=== PATIENT | female | born 1955 | race Caucasian/White ===

== ENCOUNTER 2020-04-27 14:43 | Emergency (ER) | payer OTHER, SELFPAY ==
[2020-04-27 14:51] VITALS: BP 137/69; PULSE 112; RESP 16; TEMP 36.3; O2SAT 97
--- NOTE | 2020-04-27 14:54 | DI.RAD.S_ITS ---
PROCEDURE: XR KNEE LT 3V INDICATIONS: left knee pain, can't bear weight TECHNIQUE: 3 views of the knee were acquired. COMPARISON: None. FINDINGS: Bones: No fractures or dislocations. No suspicious bony lesions. Soft tissues: There is a small joint effusion. No suspicious soft tissue calcifications. IMPRESSION: 1. No acute bony abnormality. 2. Small joint effusion. Dictated by: Rodrigo Taylor M.D. on 04/27/2020 at 15:27 Approved by: Rodrigo Taylor M.D. on 04/27/2020 at 15:28
[2020-04-27 18:14] VITALS: BP 136/80; PULSE 102; RESP 18; O2SAT 98
--- NOTE | 2020-04-27 19:22 | ED.LOWEXIN ---
HPI - Extremity Injury (Lower) <VERONICA Vyas - Last Filed: 04/27/20 20:18> General Chief Complaint: Extremity Injury, Lower Stated Complaint: cant walk on left leg/ left shoulder hurts Time Seen by Provider: 04/27/20 17:16 Source: patient Mode of arrival: Wheelchair Limitations: no limitations History of Present Illness HPI Narrative: This is a 64 year female, former smoker, who has past medical history right knee injury and 3 surgeries presents to ED with chief complain of left medial knee pain for last 6 days and left posterior localized pain for last 4 days. Patient denies trauma or falls. Patient states after the right knee replacement in 2018 she has been doing well up until several days ago. Patient reports pain increases with weight-bearing. She and her spouse moved from [facility] to [place] in December and is currently lives in travel RV. Patient reports pain is located in medial knee with swelling with weight-bearing. Then she also has lateral knee pain when she flexes affected leg. Patient reports intact sensation distally and is able to move her toes. Patient reports nontraumatic left posterior shoulder pain as well. Patient reports limited active range of motion due to discomfort. She initially injured left shoulder 20 years ago after she landed on shoulder during football game. Patient reports intact sensation distally and mobility to her fingers. Patient has been pulling herself up and down the stairs in traveling RV which she contributes the shoulder pain. Patient denies chest pain, dyspnea, or dizziness. Patient denies nausea or vomiting, or abdominal pain. Patient takes meloxicam as needed but without much improvement. Patient has [employer] health insurance from [place] and is waiting to switch insurance to [facility] and is requesting something to help her with pain until next year that she can follow up with new primary care physician and referrals to specialty providers. Related Data Allergies Allergy/AdvReac Type Severity Reaction Status Date / Time Sulfa (Sulfonamide Allergy Severe Vomiting Verified 04/27/20 14:53 Antibiotics) Review of Systems <VERONICA Vyas - Last Filed: 04/27/20 20:18> Review of Systems Narrative: General: Denies fever, chills, fatigue, malaise, sweats. HEENT: Denies sinus pain, ear pain, sore throat, difficulty swallowing, dizziness. Respiratory: Denies dyspnea, cough, wheezing, hemoptysis, sputum. Cardiovascular: Denies chest pain, palpitations, orthopnea, edema. Gastrointestinal: Denies nausea, vomiting, abdominal pain, diarrhea, constipation, melena. : Denies dysuria, frequency, incontinence, hematuria, urinary retention. Musculoskeletal: See HPI Skin: Denies rash, skin lesions, or other. Neurologic: Denies weakness, headache, numbness, change in speech, confusion, seizures, incoordination. Psychiatric: No concerning psychosocial issues. 12-point review of systems is negative except for those stated above. Patient History <VERONICA Vyas - Last Filed: 04/27/20 20:18> Surgical History H/O knee surgery Social History Smoking Status: Former smoker Smoking Status: Former smoker Substance Use Type: does not use Exam <VERONICA Vyas - Last Filed: 04/27/20 20:18> Narrative Exam Narrative: General appearance: well developed, well nourished, in no acute distress. Head: normocephalic, atraumatic, no scalp lesions, non-tender. ENT: Hearing grossly intact. Nose without bleeding, purulent discharge, septal hematoma or deviation. Airway patent. Neck/Thyroid: neck supple, full range of motion, no visible masses or meningeal signs. No JVD, non-tender without lymphadenopathy. Skin: no suspicious rashes, lesions over visible areas. Warm and dry and appropriate color for ethnicity. Heart: no clubbing, no cyanosis, no edema. S1 and S2 normal. RRR w/o murmurs, clicks, or bruits. Lungs: Breathing even and unlabored. No stridor. No accessory muscles used. Able to speak in full sentences. Chest: normal shape and expansion. Abdomen: non-obese, non-distended. Neurologic: alert and oriented. Cognitive exam, [employer] and PNS grossly intact on informal exam. Psych: good eye contact, normal affect. Initial Vital Signs Initial Vital Signs: Vital Signs Temperature 97.3 F L 04/27/20 14:51 Pulse Rate 112 H 04/27/20 14:51 Respiratory Rate 16 04/27/20 14:51 Blood Pressure 137/69 12/18/20 14:51 Pulse Oximetry 97 04/27/20 14:51 Extrem Left upper extremity: shoulder/upper arm Details: tenderness Location: other (Posterior shoulder joint) and abnormal ROM Details: pain with active ROM and pain with passive ROM; no swelling, no crepitus, no deformity and no unsual warmth and hand Details: normal to inspection, normal capillary refill, neuromotor exam normal, neurosensory exam normal and normal ROM of fingers Left lower extremity: hip/thigh Details: no tenderness and no swelling, knee Details: tenderness Location: of the medial joint line and of the lateral joint line, swelling (medial knee), normal ROM, knee ligament exam normal and other (No erythema); no ecchymosis, no crepitus, no deformity and no unusual warmth and foot Details: normal capillary refill, normal to inspection and toes with normal ROM; no tenderness <Jody Hayes DO - Last Filed: 04/28/20 07:59> Initial Vital Signs Initial Vital Signs: Vital Signs Temperature 97.3 F L 04/27/20 14:51 Pulse Rate 112 H 04/27/20 14:51 Respiratory Rate 16 04/27/20 14:51 Blood Pressure 137/69 04/27/20 14:51 Pulse Oximetry 97 04/27/20 14:51 Scores <VERONICA Vyas - Last Filed: 04/27/20 20:18> GCS [place] coma scale eye opening: Spontaneous [place] coma scale verbal response: Orientated Cathi coma scale motor response: Obey commands [place] coma scale total score: 15 qSOFA Altered Mental Status (GCS <15): No Respiratory rate greater than/equal to 22: No Systolic blood pressure less than or equal to 100: No qSOFA Total: 0 0-1 Not High Risk 1-3 High risk Course <VERONICA Vyas - Last Filed: 04/27/20 20:18> Orders Ordered: ED Orders 04/27/20 14:54 XR knee LT 3V Stat Vital Signs Vital signs: Vital Signs - 8 hr 04/27/20 14:51 04/27/20 18:14 Temperature 97.3 F L Pulse Rate 112 H 102 H Respiratory Rate 16 18 Blood Pressure 137/69 136/80 Pulse Oximetry 97 98 <Jody Hayes DO - Last Filed: 04/28/20 07:59> Orders Ordered: ED Orders 04/27/20 14:54 XR knee LT 3V Stat Vital Signs Vital signs: Vital Signs - 8 hr 04/27/20 14:51 04/27/20 18:14 Temperature 97.3 F L Pulse Rate 112 H 102 H Respiratory Rate 16 18 Blood Pressure 137/69 136/80 Pulse Oximetry 97 98 MDM - Extremity Injury (Lower) <Prince Hoover-TristonVERONICA lechuga - Last Filed: 04/27/20 20:18> Differential Diagnosis Differential diagnosis: Likely acute internal derangement of knee and other (shoulder pain, rotator cuff tendinopathy, knee strain) Medical Records Attestation: I reviewed the patient's medical records. Imaging Data XR-Knee LT: Radiologist's Impression: [address] [address]DRuf ReportSigned Patient: Glory Block#: [id number]: 4Acct:[id number]/Sex: 64 / FDate of Service: 04/27/20Loc: EDAccession Number: [id number] Procedure: XR knee LT 3V Ordering Provider: Jody Hayes D.O. PROCEDURE: XR KNEE LT 3V INDICATIONS: left knee pain, can't bear weight TECHNIQUE: 3 views of the knee were acquired. COMPARISON: None. FINDINGS: Bones: No fractures or dislocations. No suspicious bony lesions. Soft tissues: There is a small joint effusion. No suspicious soft tissue calcifications. IMPRESSION: 1. No acute bony abnormality. 2. Small joint effusion. Dictated by: Rodrigo Taylor M.D. on 04/27/2020 at 15:27 Approved by: Rodrigo Taylor M.D. on 04/27/2020 at 15:28 [facility] Narrative Medical decision making narrative: 64-year-old female who presents to ED with nontraumatic left knee and left posterior shoulder pain. Patient reports pain increased with active and passive ROM with intact sensation and mobility to fingers. Considered cardiac etiology but patient's physical exam and history is not consistent with this. Patient does not have associated cardiac symptoms. Patient has been lifting herself up and down the RV stairs after the knee pain started that she contributes her shoulder pain. Patient reports left medial knee pain with small swelling which worsens with weight-bearing. Patient is able to flex and extend knee. Pain location to lateral knee with flexion of affected knee. Patient has intact sensation and mobility to toes. Knee x-ray test shows no acute findings but with small Joint effusion. Patient is waiting to change [employer] health insurance from [place] to [place]. Patient offered Mario wrap for support and discomfort and patient elected to use walker for weight-bearing. Shoulder pain is likely from rotator cough tendinopathy. We discussed shoulder immobilizer but patient needs to exercise and stretch to prevent frozen shoulder and patient deferred. Patient currently use meloxicam as needed without much improvement. Advised patient to either use [id number] Motrin/ibuprofen or meloxicam add Tylenol to this. Return precautions were discussed with patient and agrees with treatment plan. Patient advise need further evaluation by orthopedist and advanced imaging test if pain persists and possibly a referral to physical therapist. Discharge Plan Departure Patient Disposition: Home Clinical Impression: Acute shoulder pain Qualifiers: Laterality: left Qualified Code(s): M25.512 - Pain in left shoulder Knee pain Qualifiers: Chronicity: acute Laterality: left Qualified Code(s): M25.562 - Pain in left knee Instructions: DI for Shoulder Pain, DI for Knee Pain Activity Restrictions/Additional Instructions: You have been diagnosed with [left knee and shoulder pain. X-ray test on left knee does not show acute fractures but small effusion in the joint.]. What to do: *Take your medications as directed. You can use [id number] Tylenol and your choice of NSAIDS with food to decrease GI irritation. You can use a walker that is provided to you for weight-bearing. Use Mario wrap as needed for support in your knee. For acute shoulder pain, rest. When acute pain improves with rest and NSAIDs, start gentle stretching. You may need a referral to physical therapy for further evaluation and treatment. *Follow up with your primary care provider in 2-3 days, call for an appointment. Let them know you were seen in the ED and that we asked you to be seen in follow up. Please contact [place] if pain persists for further advanced imaging test. *Return to ED if you have any new, worsening, or concerning symptoms, such as [worsening pain, fever, redness/swelling/warmth around the joint, rash, chest pain, breathing difficulty, nausea/vomiting, unable to tolerate fluids, weakness/numbness/tingling in extremities or any acute concerns]. Referrals: [facility] [Provider Group] <Jody Hayes DO - Last Filed: 04/28/20 07:59> Cosign ED Attending Cosignature Attestation: I was immediately available in the department for consultation. Documentation has been reviewed. I agree with assessment and plan.
== END 2020-04-27 18:14 | disposition home or self-care (01) ==
PROVIDERS: Emergency Provider Nurse Practitioner Family
DX: M25.512 Pain in left shoulder (principal); M25.562 Pain in left knee
CPT/HCPCS: 73562; 99281; 99283

== ENCOUNTER 2020-05-08 02:32 | Inpatient (IN) | payer OTHER, SELFPAY ==
[2020-05-08] VITALS (25 sets, daily range): BP systolic 100–186; BP diastolic 47–81; PULSE 85–115; RESP 12–20; TEMP 35.7–36.9; O2SAT 91–100; BMI 35.6
--- NOTE | 2020-05-08 | DI.RAD.S_ITS ---
PROCEDURE: XR HIP W PEL IF DONE RT 2V INDICATIONS: ORIR RIGHT FEMUR TECHNIQUE: AP pelvis with lateral view(s) of the right hip(s). COMPARISON: [facility], , XR HIP W PEL IF DONE RT 2V, 05/08/2020, 2:45. FINDINGS: Spot fluoroscopic intraoperative images demonstrating intramedullary toñito and screw fixation of the proximal right femur. IMPRESSION: Expected intraoperative appearance. Dictated by: Ramiro Lal M.D. on 05/08/2020 at 18:48 Approved by: Ramiro Lal M.D. on 05/08/2020 at 18:48
--- NOTE | 2020-05-08 02:41 | DI.RAD.S_ITS ---
PROCEDURE: XR HIP W PEL IF DONE RT 2V INDICATIONS: Right hip pain after fall TECHNIQUE: AP pelvis with lateral view(s) of the right hip(s). COMPARISON: None. FINDINGS: Bones: Subtrochanteric/intertrochanteric fracture of the proximal right femur. Diffuse osteopenia noted. Lower lumbar spondylosis and facet disease. Mild, chronic bilateral hip joint degeneration. Soft tissues: The visualized bowel gas pattern is normal. No suspicious soft tissue calcifications. IMPRESSION: Proximal right femur fracture Dictated by: Ramiro Lal M.D. on 05/08/2020 at 9:04 Approved by: Ramiro Lal M.D. on 05/08/2020 at 9:05
[2020-05-08] MEDS: HYDROMORPHONE 1 MG INJ IV ×3 (02:52→12:47)
--- NOTE | 2020-05-08 02:55 | ED_ITS ---
HPI - Extremity Injury (Lower) General Chief Complaint: Extremity Injury, Lower Stated Complaint: GLF Time Seen by Provider: 05/08/20 02:33 Source: patient and EMS Mode of arrival: EMS Limitations: no limitations History of Present Illness HPI Narrative: 64-year-old woman is moved to the [facility] and December with a history of reflux, right knee replacement, recent left knee pain left shoulder pain presents after a ground level fall with severe right-sided hip pain. She states that she stepped outside to have the for cigarette she has had in the last 6 months, became lightheaded after the cigarette and suffered a ground level fall landing on the left hip. Did not hit her head and complains of no other acute injuries. Related Data Allergies Allergy/AdvReac Type Severity Reaction Status Date / Time Sulfa (Sulfonamide Allergy Severe Vomiting Verified 05/08/20 02:49 Antibiotics) Review of Systems Review of Systems Narrative: Positive for recent left knee pain, using walker due to the the pain and walker has exacerbated prior left shoulder pain Pertinent positive and negative findings as per HPI Remainder of review of systems is otherwise unremarkable for Constitutional: Fevers, chills, weakness ENT: No sore throat, neck pain, ear pain CV: Chest pain, palpitations, dyspnea on exertion Respiratory: Cough, wheeze, dyspnea GI: Nausea, vomiting, diarrhea, : Dysuria, hematuria, flank pain Skin: Rashes, nonhealing lesions Neuro: Syncope, dizziness, tingling Patient History Medical History Acid reflux Surgical History H/O knee surgery Status post right knee replacement Social History Smoking Status: Former smoker Smoking Status: Former smoker Substance Use Type: does not use Exam Narrative Exam Narrative: General: Healthy appearing, significant distress with right hip pain. Able to speak in full sentences HEENT: Moist mucous membranes, normal sclera with reactive pupils, Neck: No JVD, supple Respiratory: Lungs are clear to auscultation, no wheezing no rales no rhonchi. Full and symmetrical air movement Cardiac: Regular rate and rhythm no murmurs no bruits Abdomen: Soft nontender good bowel tones, no flank pain Skin: Warm and dry, no rashes Neurologic: Grossly neurologically intact, full sensation to lower extremities Extremities: Severe pain localized to the right hip, leg is unable to be moved without severe pain her Psych: Cooperative, appropriate insight and affect Initial Vital Signs Initial Vital Signs: Vital Signs Temperature 97.4 F L 05/08/20 02:37 Pulse Rate 85 05/08/20 02:37 Respiratory Rate 18 05/08/20 02:37 Blood Pressure 150/78 H 05/08/20 02:37 Pulse Oximetry 99 05/08/20 02:37 Course Orders Ordered: ED Orders 05/08/20 02:41 XR hip w pel if done RT 2V Stat 05/08/20 02:55 EKG-12 Lead Stat 05/08/20 03:00 COVID19 Stat 05/08/20 03:20 Complete Blood Count AUTO DIFF Stat Comprehensive Metabolic Panel Stat Hydromorphone HCl (Hydromorphone 0.5 Mg Inj) 0.5 mg IV Q15MIN PRN PRN Reason: Pain, Sodium Chloride (Normal Saline 0.9%) 1,000 mls @ 150 mls/hr IV CONT JAMIE Last Admin: 05/08/20 03:00 Dose: 150 mls/hr Documented by: TRICIA Discontinued Medications Hydromorphone HCl (Hydromorphone 1 Mg Inj) 1 mg IV NOW ONE Stop: 05/08/20 02:50 Last Admin: 05/08/20 02:52 Dose: 1 mg Documented by: TRICIA Vital Signs Vital signs: Vital Signs - 8 hr 05/08/20 02:37 05/08/20 02:40 05/08/20 03:05 Temperature 97.4 F L Pulse Rate 85 91 H 96 H Respiratory Rate 18 Blood Pressure 150/78 H Pulse Oximetry 99 99 91 05/08/20 03:13 Temperature Pulse Rate 94 H Respiratory Rate Blood Pressure 171/75 H Pulse Oximetry 96 MDM - Extremity Injury (Lower) Medical Records Attestation: I reviewed the patient's medical records. Lab Data Attestation: I reviewed the patient's lab results. Result diagrams: 05/08/20 03:20 05/08/20 03:20 Labs: Lab Results 05/08/20 05/08/20 05/08/20 Range/Units 03:00 03:20 03:20 WBC 7.5 (4.5-11.0) X10^3/uL RBC 4.35 (4.0-5.2) X10^6/uL Hgb 12.6 (12.0-16.0) g/dL Hct 38.4 (36-46) % MCV 88.3 (80-100) fL MCH 28.9 (26-34) PG MCHC 32.7 (30-36) % RDW 13.7 (11.6-14.8) % Plt Count 211 (150-400) X10^3/uL Neut % (Auto) 72.5 (50-75) % Lymph % (Auto) 17.7 L (25-40) % [place] % (Auto) 7.3 (3-14) % Eos % (Auto) 1.6 L (2-4) % Baso % (Auto) 0.9 (0-2) % Neut # (Auto) 5400 (0307-5579) /uL Lymph # (Auto) 1300 (9154-9010) /uL [place] # (Auto) 500 (0-900) /uL Eos # (Auto) 100 (0-450) /uL Baso # (Auto) 100 (0-100) /uL Sodium 139 (137-145) mmol/L Potassium 4.2 (3.4-5.1) mmol/L Chloride 106 (98-107) mmol/L Carbon Dioxide 28 (22-32) mmol/L BUN 21 H (7-17) mg/dL Creatinine 0.71 (0.52-1.04) mg/dL Estimated GFR > 60.0 (>60) mL/min BUN/Creatinine Ratio 29.6 H (6-22) Glucose 139 H (80-110) mg/dL Calcium 9.6 (8.4-10.2) mg/dL Total Bilirubin 0.3 (0.2-1.3) mg/dL AST 38 H (14-36) IU/L ALT 39 H (<35) IU/L Alkaline Phosphatase 82 (38-126) U/L Total Protein 7.8 (6.3-8.2) g/dL Albumin 4.2 (3.5-5.0) g/dL Globulin 3.6 (1.7-4.1) g/dL Albumin/Globulin Ratio 1.2 (1.0-2.8) COVID-19 PCR Negative (Negative) Imaging Data X-ray hip: Attestation: I personally reviewed and interpreted this imaging study as follows: My Impression: Right-sided intratrochanteric moderately displaced hip fr acture ECG Data Attestation: I personally reviewed and interpreted this ECG as follows: Interpretation: Normal sinus rhythm at a rate of 94 Normal intervals, normal axis No acute ischemic changes MDM Narrative Medical decision making narrative: 64-year-old woman who had a brief episode of dizziness after smoking her for cigarette in 6 months and fell on her right side sustaining a right intratrochanteric fracture. She is not currently on blood thinners and has no significant other medical problems. She is new to the area and does not have a primary care physician. Care is reviewed with Dr. Marcos, orthopedist. He agrees to consult requests that she be NPO and anticipates surgical revision later this afternoon. Hospitalist service will be the primary admitting service will contact Ms. Dan hospitalist VERONICA. Discharge Plan Departure Patient Disposition: Admitted As Inpatient Clinical Impression: Closed intertrochanteric fracture of right hip Qualifiers: Encounter type: initial encounter Fracture alignment: displaced Qualified Code(s): S72.141A - Displaced intertrochanteric fracture of right femur, initial encounter for closed fracture
[2020-05-08] MEDS: SODIUM CHLORIDE 0.9% 1,000 ML 150 ML IV (03:00)
[2020-05-08 03:20] LABS: COVID19 -Nasal RAPID Negative (Negative)
[2020-05-08 03:31] LABS: Add Manual Diff / Slide Review NO; Basophils Absolute Auto 100 /uL (0-100); Basophils Percent Auto 0.9 % (0-2); Eosinophils Absolute Auto 100 /uL (0-450); Eosinophils Percent Auto 1.6 % (2-4); Hematocrit 38.4 % (36-46); Hemoglobin 12.6 g/dL (12.0-16.0); Lymphocytes Absolute Auto 1300 /uL (1100-4500); Lymphocytes Percent Auto 17.7 % (25-40); Mean Corpuscular HGB Conc 32.7 % (30-36); Mean Corpuscular Hemoglobin 28.9 PG (26-34); Mean Corpuscular Volume 88.3 fL (80-100); Monocytes Absolute Auto 500 /uL (0-900); Monocytes Percent Auto 7.3 % (3-14); Neutrophils Absolute Auto 5400 /uL (1500-7000); Neutrophils Percent Auto 72.5 % (50-75); Platelet Count 211 X10^3/uL (150-400); Red Blood Cell Count 4.35 X10^6/uL (4.0-5.2); Red Cell Distribution Width 13.7 % (11.6-14.8); White Blood Cell Count 7.5 X10^3/uL (4.5-11.0)
[2020-05-08 03:41] LABS: Alanine Aminotransferase 39 IU/L (<35); Albumin 4.2 g/dL (3.5-5.0); Albumin Globulin Ratio 1.2 (1.0-2.8); Alkaline Phosphatase 82 U/L (38-126); Aspartate Aminotransferase 38 IU/L (14-36); BUN Creatinine Ratio 29.6 (6-22); Bilirubin Total 0.3 mg/dL (0.2-1.3); Blood Urea Nitrogen 21 mg/dL (7-17); Calcium 9.6 mg/dL (8.4-10.2); Carbon Dioxide 28 mmol/L (22-32); Chloride 106 mmol/L (98-107); Estimated Glomerular Filt Rate > 60.0 mL/min (>60); Globulin 3.6 g/dL (1.7-4.1); Glucose 139 mg/dL (80-110); HEMOLYSIS < 15 (0-50); Potassium 4.2 mmol/L (3.4-5.1); Sodium 139 mmol/L (137-145); Total Protein 7.8 g/dL (6.3-8.2)
[2020-05-08] MEDS: HYDROMORPHONE 0.5 MG INJ IV ×2 (04:02→09:03)
--- NOTE | 2020-05-08 04:17 | PC.NURSE ---
Pt's niece at bedside, informed of one visitor policy. Pt c/o pain to R hip 12/18, pt medicated with 0.5mg dilaudid IV with good relief. Pt educated to notify nurse of increasing pain before it becomes severe going forward to better pain management, pt verbalized understanding.
--- NOTE | 2020-05-08 05:01 | PC.NURSE ---
0415 Pt arrives in stable condition to the acute care unit via stretcher. She is on room air, has NS infusing at 150mL/h into the right AC. She has an indwelling gualde catheter. She states her pain in the right hip is a 2/10 unless moved, then is extremely painful. She is alert and oriented x4. Oriented patient to room and call-light. Awaiting further orders from hospitalist.
--- NOTE | 2020-05-08 05:02 | PM.HP.1 ---
History of Present Illness History of Present Illness Date Patient Seen: 05/08/20 Time Patient Seen: 05:03 Chief complaint: GLF Narrative: Patient is a 64-year-old female Monika Block presented to the emergency room with a chief complaint of recent left knee pain left shoulder pain presents after a ground level fall with severe right-sided hip pain. Patient had quit smoking in December of 2019, but decided today to step out of her RV to have a cigarette, she became lightheaded after the cigarette and suffered a ground level fall landing on the left hip, denies hitting her head and complains of no other acute injuries. Patient has a history of former smoker x 40 yrs, with a past medical history depression, acid reflux and right knee replacement in 2018 she has been doing well up until early Apr 2020. When she presented to ED on 04/27/2020 for complaints of left medial knee pain/swelling with weight-bearing and lateral knee pain when she flexes affected leg for 6 days. In addition reported nontraumatic left posterior shoulder pain as well causing limited active range of motion due to discomfort. She initially injured left shoulder 20 years ago after she landed on shoulder during football game. Patient has been pulling herself up and down the stairs in traveling RV which she contributes the shoulder pain. Patient reports no improvement with taking meloxicam. She and her spouse moved from [facility] to [place] in December 2019 and is currently living in travel RV. Patient has [employer] health insurance from [place] and is waiting to switch insurance to [facility] and had requested some pain medication on 04/27/2020 ED visit to help with pain until next year so that she could follow up with new primary care physician and referrals to specialty providers. Patient denies at the time of the fall and on current exam chest pain, irregular, or racing heartbeat, dyspnea, diaphoresis, changes in vision, or dizziness. Recent illness nausea,vomiting, diarrhea or abdominal pain. She also denies numbness, tingling, abnormal balance, or coordination, frequent falls, changes or difficulty with bowel, bladder or motor skills. Reports intact sensation distally and mobility to her fingers. In the ED patient was found to have a right hip closed inter trochanter fracture. Dr. ramirze orthopedic surgeon was contacted and requested patient be admitted by hospitalist service for surgery today. Patient History Medical History (Updated 05/08/20 @ 06:49 by JOSE DANIEL Oconnor) Acid reflux Depression History of suicide attempt Surgical History H/O knee surgery Status post right knee replacement Family & Social History Family History (Updated 05/08/20 @ 06:47 by JOSE DANIEL Oconnor) Other Adopted Social History: household members spouse Prior Living Arrangements RV Safety & Behavioral: Feels Safe in Current Yes Environment Been Physically Hurt or No Threatened By a Person Suicidal Ideation Description None Suicide Plan Description No Plan Tobacco & Substance use: Tobacco type cigarettes Smoking Status Former smoker x 40 yrs, stopped in December 2019 alcohol intake former Substance Use Type does not use Meds Home Medications and Allergies Home Medications Medication Instructions Recorded Confirmed Type meloxicam 05/08/20 History omeprazole magnesium [Acid Program Services Planner 20 mg PO DAILY 05/08/20 05/08/20 History (omeprazole)] trazodone 05/08/20 History Allergies Allergy/AdvReac Type Severity Reaction Status Date / Time Sulfa (Sulfonamide Allergy Severe Vomiting Verified 05/08/20 02:49 Antibiotics) Review of Systems Review of Systems ROS: Yes All systems reviewed with the patient and are negative except as otherwise documented Eyes Eyes: Reports system reviewed and no additional complaints, except as documented ENT Ears, Nose, Mouth, and Throat: Yes system reviewed and no additional complaints, except as documented Cardiovascular Cardiovascular: Reports system reviewed and no additional complaints, except as documented Respiratory Respiratory: Reports system reviewed and no additional complaints, except as documented Gastrointestinal Gastrointestinal: Reports system reviewed and no additional complaints, except as documented Genitourinary Genitourinary: Reports system reviewed and no additional complaints, except as documented Musculoskeletal Musculoskeletal: Reports arthralgias, Reports joint swelling and Reports limited range of motion Comments: Patient c/o severe pain with any body movement to the right hip. Integumentary/Breasts Skin/Breast: Reports system reviewed and no additional complaints, except as documented and Reports skin swelling Neurologic Neurologic: Reports system reviewed and no additional complaints, except as documented Psychiatric Psychiatric: Reports system reviewed and no additional complaints, except as documented Endocrine Endocrine: Reports system reviewed and no additional complaints, except as documented Hematologic/Lymphatic Hematologic/Lymphatic: Reports system reviewed and no additional complaints, except as documented Allergic/Immunologic Allergic/Immunologic: Reports system reviewed and no additional complaints, except as documented Exam Vital Signs (past 8 hours): - 05/08/20 02:37 05/08/20 02:40 05/08/20 03:05 Temperature 97.4 F L Pulse Rate 85 91 H 96 H Respiratory Rate 18 Blood Pressure 150/78 H Pulse Oximetry 99 99 91 05/08/20 03:13 05/08/20 03:30 05/08/20 03:31 Temperature Pulse Rate 94 H 98 H 98 H Respiratory Rate Blood Pressure 171/75 H 186/81 H Pulse Oximetry 96 97 97 05/08/20 04:00 05/08/20 04:52 Temperature 97.1 F L Pulse Rate 104 H 101 H Respiratory Rate 16 Blood Pressure 154/79 H Pulse Oximetry 98 96 Oxygen Delivery Method Room Air Oxygen Flow Rate 0 Narrative Exam Narrative: General: Patient is a well-developed delightful female, appears appropriate for age, well-nourished, well groomed, in no acute distress at this time. HEENT: Normocephalic, atraumatic, extraocular muscles intact, oral pharynx is clear and mucous membranes are moist. Neck is supple and symmetric, trachea is midline, no adenopathy, no thyroid enlargement, nontender, no masses palpated. Negative for JVD Chest: Normal AP diameter and contour without kyphoscoliosis, no nasal flaring, retractions, or tachypneic labored Lungs: Auscultation of all lung marie are clear without adventitious sounds, wheezes, rhonchi, or rales. Cardio: S1 & S2 with regular rate and rhythm without murmur, rubs, or gallops, no carotid bruit, no cardiac pulsations present. Abdomen: Soft nontender, negative for organomegaly, or masses. Bowel sounds are present in all 4 quadrants without guarding or rebound, no CVA tenderness. Musculoskeletal: Patient c/o of severe pain with any movement or physical exam -unable to perform strength & ROM-extremities demonstrate no effusions, cyanosis, clubbing or edema present. radial and pedal pulses are normal. Noted normal spinal visual exam. Skin: Warm dry and intact without rashes, ulcerations or petechiae. Neuro: Alert and orientated x3, sensation to touch intact, no gross deficits noted of cranial nerves. Psych: Patient has a well-kept appearance, appropriate affect, mental status attitude thought context and judgment are appropriate for age. Objective Labs Result Diagrams: 05/08/20 03:20 05/08/20 03:20 Labs: Laboratory Results - last 24 hr 05/08/20 05/08/20 05/08/20 03:00 03:20 03:20 WBC 7.5 RBC 4.35 Hgb 12.6 Hct 38.4 MCV 88.3 MCH 28.9 MCHC 32.7 RDW 13.7 Plt Count 211 Neut % (Auto) 72.5 Lymph % (Auto) 17.7 L [place] % (Auto) 7.3 Eos % (Auto) 1.6 L Baso % (Auto) 0.9 Neut # (Auto) 5400 Lymph # (Auto) 1300 [place] # (Auto) 500 Eos # (Auto) 100 Baso # (Auto) 100 Sodium 139 Potassium 4.2 Chloride 106 Carbon Dioxide 28 BUN 21 H Creatinine 0.71 Estimated GFR > 60.0 BUN/Creatinine Ratio 29.6 H Glucose 139 H Calcium 9.6 Total Bilirubin 0.3 AST 38 H ALT 39 H Alkaline Phosphatase 82 Total Protein 7.8 Albumin 4.2 Globulin 3.6 Albumin/Globulin Ratio 1.2 COVID-19 PCR Negative Assessment & Plan Assessment & Plan narrative: This patient requires acute care inpatient hospitalization for right hip closed intratrochanteric fracture repair. After falling and failing outpatient management of left knee and shoulder pain resulting in impaired mobility falling resulting in right hip fracture. The patient is at much higher risk for medical and surgical complications because of because of her obesity, age, and having an extracapsular fracture putting her at higher risk for hemorrhage, delirium, pressure sores,nonunion, and/or displacement. Improved patient outcomes will be better served with surgical intervention within 24 hours. Refusing patient inpatient medical and surgical interventions will increase the chances of poor outcomes such as decreased mobility, morbidity and mortality. Patient is to have surgery tomorrow by Dr. Ramirez. 1. Right hip fracture, acute, closed inter trochanter, present on admission -right hip x-ray: Demonstrates closed inter trochanter right hip fracture, stability unknown. -monitor patient and rule out contributing factors of heart disease, diabetes mellitus, dehydration, infection, thromboembolism, alcohol-induced fall -monitor patient for hemorrhage, delirium, pressure sores, and postop complications of nonunion/displacement. -monitor hemodynamics:vital signs q.4 hours, intake and output monitored Q shift, weight measure daily, diet: NPO for procedure -IV fluid: Patient on normal saline 100 cc/hour, 1000 cc normal saline in the ER, patient on room air, -O2 saturation 96% -medications: In ER hydromorphone 1 mg, 1 mg IV as needed for severe pain Q 6 hours. Patient to be monitored for confusion over-sedation or delirium -labs: PT/ PTT, [id number] now, daily CBC and BMP daily -Gauthier catheter in place, monitor urine output Q shift. Plan to remove within 24 hours of surgery. -patient on bed rest, only up with PT clearance postsurgical -consults ordered physical therapy, occupational therapy. -evaluate patient for 2019 flu vaccine, pneumococcal vaccine, and COVID-19 vaccine -ER physician Dr. Ley consulted with orthopedic surgeon Dr. Ramirez, surgery scheduled for later today -patient last ate at 6:30 p.m. 05/07/2020, last BM approximately 2 days ago, senna and docusate sodium ordered -patient's BUN 21, BUN/creatinine ratio 29.6 glucose 139, AST 38, ALT 39. WBC is normal without left shift. Hemoglobin 12.6/hematocrit 38.4, platelets 211 PT 12.2/INR 1.1, creatinine 0.71, GFR greater than 60 2. Left knee pain acute, left shoulder pain acute, present on admission -patient had ED visit on 04/27/2020 left shoulder x-ray was negative for acute abnormalities, left knee x-ray demonstrated small joint effusion without acute processes. -patient to have PT and OT consult and consider rehab post hospitalization and surgery 3. Acid reflux, chronic, present on admission, controlled unknown -continue patient's home omeprazole 4. Depression, chronic, well controlled -patient is unable to validate trazodone does, nurse will ask daughter to bring medication bottle in at that time will continue trazodone per home regimen -depression 06/20, patient denies anxiety, and suicidal ideation. 5. Obesity, acute, BMI 35.7, present on admission -nutritional consult -PT and OT consult Code status: Full code Surrogate/plan of care: Spouse Garrett Block COVID PCR: Negative VTE prophylaxis: SCDs, further anticoagulation contraindicated as patient is having right hip surgery within 12 hours. Scores GCS Cobb coma scale eye opening: Spontaneous Cathi coma scale verbal response: Orientated Cobb coma scale motor response: Obey commands Cobb coma scale total score: 15 SOFA PaO2/FIO2: >=400 mmHg Platelets: >= 150 Bilirubin: < 1.2 mg/dL Hypotension: MAP >= 70 mmHg Cobb Coma Scale: 15 Renal: < 1.2 mg/dL SOFA Score: 0 Wells' Criteria for PE Clinical signs and symptoms of DVT: No PE is #1 Dx or equally likely: No Heart rate > 100: Yes Immobilization at least 3 days or surg in previous 4 weeks: No History of PE or DVT: No Hemoptysis: No Malignancy w/Treatment within 6 months or palliative: No Wells' PE Score total: 1.5 Quality VTE Deep Vein Thrombosis/Pulmonary Embolism Present on Admission: No
[2020-05-08 05:08] LABS: INR 1.1 (0.9-1.3); Prothrombin Time 12.2 SECONDS (10.1-12.7)
[2020-05-08 05:10] LABS: PTT Partial Thromboplastin Tim 30 SECONDS (26.4-36.2)
[2020-05-08 05:15] LABS: Hemoglobin A1C% w Est Avg Glu 6.1 % (4.0-6.0)
--- NOTE | 2020-05-08 06:24 | PC.NURSE ---
Addendum entered by Glory Martinez R.N. 05/08/20 06:37: 0630 Informed patient and daughter of need to know dosing for her Trazadone. Daughter and patient will be contacting patient's at home to get information and pass it on to nursing. Original Note: 0620 per verbal order from Velma Dan NP, titrated NS down to 100mL/h from 150mL/h
--- NOTE | 2020-05-08 07:22 | P.CONS_ITS ---
History of Present Illness Consult details Date Patient Seen: 05/08/20 Time Patient Seen: 07:22 Chief complaint: GLF Reason for consult: Hip fracture Requesting provider: Lashonda Ley Narrative: 64-year-old female with a right hip fracture. She had her moved up to [place] in December and have been living in their RV. She stopped smoking about 6 months ago but last night decided she wanted to have a ci garette. She walked outside and had her cigarette. She was feeling lightheaded afterwards and fell over and was unable to walk. EMS was called and she was brought to the emergency room where she was found have a right hip fracture and I was consulted. She denies any prodromal dizziness or shortness of breath or chest pain. She does felt lightheaded after having her cigarette. She denies pain anywhere else besides the right hip. Pain is uncomfortable at rest but any motion sets are often a severe spasms. She does have history of a right knee replacement. Meds Home Medications and Allergies Home Medications Medication Instructions Recorded Confirmed Type meloxicam 05/08/20 History omeprazole magnesium [Acid Executive Relations Specialist 20 mg PO DAILY 05/08/20 05/08/20 History (omeprazole)] trazodone 05/08/20 History Allergies Allergy/AdvReac Type Severity Reaction Status Date / Time Sulfa (Sulfonamide Allergy Severe Vomiting Verified 05/08/20 02:49 Antibiotics) Review of Systems Constitutional Constitutional: Denies chills and Denies fever(s) ENT Ears, Nose, Mouth, and Throat: No dizziness Cardiovascular Cardiovascular: Denies chest pain Respiratory Respiratory: Denies cough Gastrointestinal Gastrointestinal: Denies abdominal pain Neurologic Neurologic: Denies dizziness Psychiatric Psychiatric: Reports depression Hematologic/Lymphatic Hematologic/Lymphatic: Denies easy bleeding Allergic/Immunologic Allergic/Immunologic: Denies urticaria Exam Vital Signs (past 8 hours): - 05/08/20 02:37 05/08/20 02:40 05/08/20 03:05 Temperature 97.4 F L Pulse Rate 85 91 H 96 H Respiratory Rate 18 Blood Pressure 150/78 H Pulse Oximetry 99 99 91 05/08/20 03:13 05/08/20 03:30 05/08/20 03:31 Temperature Pulse Rate 94 H 98 H 98 H Respiratory Rate Blood Pressure 171/75 H 186/81 H Pulse Oximetry 96 97 97 05/08/20 04:00 05/08/20 04:52 Temperature 97.1 F L Pulse Rate 104 H 101 H Respiratory Rate 16 Blood Pressure 154/79 H Pulse Oximetry 98 96 Oxygen Delivery Method Room Air Oxygen Flow Rate 0 Const Orientation: alert and oriented x3 Resp Auscultation: clear to auscultation bilaterally Cardio Rate: regular rate Rhythm: regular rhythm Extrem Other: Right hip intact integument. Externally rotated leg. Severe pain with any logroll. 1+ dorsalis pedis pulse. Easily wiggles toes and ankle. Intact sensation throughout the foot. Soft calf Objective Imaging Right hip x-ray: My impression: Shows a displaced high subtrochanteric right hip fracture Labs Result Diagrams: 05/08/20 03:20 05/08/20 03:20 Labs: Laboratory Results - last 24 hr 05/08/20 05/08/20 05/08/20 03:00 03:20 03:20 WBC 7.5 RBC 4.35 Hgb 12.6 Hct 38.4 MCV 88.3 MCH 28.9 MCHC 32.7 RDW 13.7 Plt Count 211 Neut % (Auto) 72.5 Lymph % (Auto) 17.7 L [place] % (Auto) 7.3 Eos % (Auto) 1.6 L Baso % (Auto) 0.9 Neut # (Auto) 5400 Lymph # (Auto) 1300 [place] # (Auto) 500 Eos # (Auto) 100 Baso # (Auto) 100 PT INR APTT Sodium 139 Potassium 4.2 Chloride 106 Carbon Dioxide 28 BUN 21 H Creatinine 0.71 Estimated GFR > 60.0 BUN/Creatinine Ratio 29.6 H Glucose 139 H Hemoglobin A1c Calcium 9.6 Total Bilirubin 0.3 AST 38 H ALT 39 H Alkaline Phosphatase 82 Total Protein 7.8 Albumin 4.2 Globulin 3.6 Albumin/Globulin Ratio 1.2 COVID-19 PCR Negative 05/08/20 05/08/20 03:20 03:20 WBC RBC Hgb Hct MCV MCH MCHC RDW Plt Count Neut % (Auto) Lymph % (Auto) [place] % (Auto) Eos % (Auto) Baso % (Auto) Neut # (Auto) Lymph # (Auto) [place] # (Auto) Eos # (Auto) Baso # (Auto) PT 12.2 INR 1.1 APTT 30 Sodium Potassium Chloride Carbon Dioxide BUN Creatinine Estimated GFR BUN/Creatinine Ratio Glucose Hemoglobin A1c 6.1 H Calcium Total Bilirubin AST ALT Alkaline Phosphatase Total Protein Albumin Globulin Albumin/Globulin Ratio COVID-19 PCR Assessment & Plan Assessment & Plan narrative: Right hip fracture. I have explained to the patien t that she needs surgical treatment to realign this as well as stabilize it so that she will be able to walk again. This would be an intramedullary nail with screw fixation. Risks and benefits of surgery discussed with the patient and her niece including but not limited to medical risks of heart attack, stroke, DVT, PE, , infection, bleeding, scarring, muscle or nerve injury, nonunion, stiffness, limp, reduction of ambulatory status, need for further surgery. She understands that the average hip takes about 3 months to heal and can take 6 months to a year for for full muscular recovery afterwards. She most likely will be looking at a halfway facility upon discharge. All questions have been answered. Plan for surgery this afternoon. She is NPO. I am going to get an x-ray of her right knee to make sure her knee replacement prosthesis will not be in the way. COVID-19 COVID-19 status: Negative Result date/Date tested (Pos, Neg/Pending): 05/08/20
--- NOTE | 2020-05-08 07:34 | DI.RAD.S_ITS ---
PROCEDURE: XR KNEE RT 1TO2V INDICATIONS: R hip fx, hx TKA TECHNIQUE: 2 view(s) of the knee acquired. COMPARISON: [facility], CR, XR KNEE LT 3V, 04/27/2020, 14:58. FINDINGS: Bones: Patient is status post knee joint arthroplasty. Hardware components are in expected positions. Visualized bony structures are intact. No fracture Soft tissues: Overlying postoperative changes are noted. IMPRESSION: Expected postoperative alignment Dictated by: Ramiro Lal M.D. on 05/08/2020 at 8:40 Approved by: Ramiro Lal M.D. on 05/08/2020 at 8:44
--- NOTE | 2020-05-08 08:22 | OT.IPNOTE ---
Pt having surgery today at 2:45pm, therefore to see pt tomorrow for OT eval.
[2020-05-08] MEDS: ACETAMINOPHEN 325 MG TABLET 650 MG PO (09:02)
[2020-05-08] MEDS: DOCUSATE 100 MG CAPSULE PO ×2 (09:03→21:15)
[2020-05-08] MEDS: PANTOPRAZOLE 20 MG TABLET PO (09:03)
--- NOTE | 2020-05-08 09:55 | CM.DANOTE ---
Addendum entered by Kenzie Melton R.N. 05/08/20 12:02: Shu reviewed patient and stated, they should be able to accept. She mentioned that her [employer] in this [place] should be affective on 05/11, but unclear if authorization will come from out of state, or here. Left a message with Coreen Pino, one of the [place] telehealth case manager, as one is also left with Andreina Landry as well, for some guidance regarding this authorization. Jacklyn at [facility] has also received authorization as well, as back up. Addendum entered by Kenzie Melton R.N. 05/08/20 10:56: Its noted that patient is [place] Medicare out of state. Went ahead and sent a second referral to [facility], as a back up. Sent over face sheet, H&P, and insurance information. Left a message with Andreina Landry at [place], [employer], to inquire if they handle [place] of state [place] plans. Will await her response. Updated October at [facility], regarding patient's insurance as well. Original Note: DCP: Case received, EMR reviewed and met with patient. Introduced self and role. Was able to obtain information from patient regarding her baseline activity status prior to fall, as well as her current living situation. Was also able to discuss discharge planning. DCP assessment completed with information currently available. Patient is a 64 year old female who admitted early this morning to the care of the hospitalist/orthopedic team. PCP: None at this time. Payer: confirmed: Medicare/[place] out of state. Patient came to the hospital via ambulance secondary to a ground level fall. Patient had quit smoking in December, but had decided to have a cigarette, became light headed, and fell. She ended up having a right displaced intratrochentric fracture. Patient has had a surgery consult, and the plan is for her to have surgery later today. Met with patient in her room. She was laying in bed, alert and oriented. Patient moved up here to [place], and lives in an with her . Patient is originally from [place], [place]. She currently has no primary care provider. It is noted from orthopedist that patient most likely will need skilled. Discussed briefly with patient. Gave her Medicare Choice List, she is aware that there is a local skilled rehab next to the hospital, she is not opposed to going. She has been independent at baseline, regarding her mobility. Called Shu at [facility] and gave her the referral. Shu mentioned that they do have female beds available, so should not be a problem. She will review. She is aware that patient is Medicare primary, as long as she is inpatient, she would qualify for skilled by 05/11. P: DCP to continue to follow. Patient will most likely need skilled. Shu will review today, and will need to ensure that patient does make inpatient status. Kenzie Melton RN/Automobile Engine Assembler
[2020-05-08] MEDS: diazePAM 10 MG/2 ML SYRINGE 5 MG IV (10:14)
[2020-05-08] MEDS: KETOROLAC 30 MG/ML VIAL IV (10:16)
[2020-05-08] MEDS: SODIUM CHLORIDE 0.9% 1,000 ML 100 ML IV (12:47)
--- NOTE | 2020-05-08 13:08 | PT-IP ANOTE ---
pt is going to receive sx at 1500 pm today . Will eval pt tomorrow morning.
[2020-05-08] MEDS: LACTATED RINGERS 1,000 ML 42 ML IV (14:15)
--- NOTE | 2020-05-08 15:11 | PM.PREOP ---
Pre-operative Note COVID-19 COVID-19 status: Negative Result date/Date tested (Pos, Neg/Pending): 05/08/20 Interval Note History & Physical reviewed/Exam performed by Physician: Yes Changes to H&P: No
[2020-05-08] MEDS: CEFAZOLIN 2 GM/100 ML FROZ.PIGGY IV (15:54)
--- NOTE | 2020-05-08 16:29 | SUR.OPER ---
Supine on padded [place] table with bilateral legs secured in padded positioning boots and suspended in positioning spars, operative leg in traction per surgeon. Head on one pillow. Arm on non-operative side secured on padded armboard <90 degrees abduction. Arm on operative side padded and resting across chest then secured with tape over sheet. Padded perineal post in place per surgeon.
--- NOTE | 2020-05-08 18:02 | PM.OP.1 ---
Operative Date/Time/Diagnoses Date of procedure: 05/08/20 Time of procedure: 18:02 Pre-op diagnosis: Right subtrochanteric hip fracture Post-op diagnosis: same Procedure & Clinicians Procedure: ORIF of right hip fracture with intramedullary nail Same procedure as scheduled: Yes Indications: [age] year old female with a displaced hip fracture. It was felt that she would benefit from operative intervention. Risks and benefits of surgery were discussed and appropriate consents were obtained. Surgeon: Mike Marcos Click Yes if Unassisted: Yes Anesthesia Type: General Operative Notes Findings: None Closure Type: primary Specimen(s): none sent Prosthetic devices, grafts, tissues, transplants, or devices: Lesa Natural nail 340mm, 95mm hip screw Applied: catheter Estimated Blood Loss (mL): 200 Procedure in detail: Patient is brought to the operating room and intubated on the table. She was transferred over to the fracture table and the fracture was reduced under fluoroscopy. Preoperative antibiotics were given. Time-out was performed. Attention was turned towards the well marked right hip. The right leg was prepped and draped in standard sterile fashion. Using fluoroscopy for localization, a 4 cm incision was made proximal to the greater trochanter. We then placed a guidewire over the tip of the trochanter and checked under fluoroscopy. This was advanced down the femoral canal. We then placed our initial Reamer over this. This started to displace the proximal fragment laterally and direct pressure was placed over the thigh to keep it reduced. We then placed a ball-tip wire down the femur under fluoroscopy and checked for final location at the knee to make sure that it was above her knee replacement. We then held our reduction with lateral pressure and sequentially reamed up to a 13 mm canal ream with good chatter. We then took a Lesa natural nail 340 mm and holding reduction advanced it down the canal into a good location. We confirmed under fluoroscopy. We then used the guide and made a 1.5 cm incision for the locking screw. We placed the guide up to the cortex and confirmed positioning under two views of fluoroscopy and then advanced the guidewire through the femoral neck to the edge of the femoral head. We measured and drilled and then placed a 95 mm femoral neck screw. We placed the locking screw tightly. We then removed the insertion guide and confirmed her x-rays. We went down to the knee and found perfect circles for the distal hole. A small incision was made and we drilled under fluoroscopy. We then measured and placed the final locking screw. Final x-rays were taken. The wounds were irrigated. The fascia was closed. A drain was placed in the proximal wound. Then the superficial and the skin were closed. Sterile dressings were placed. She was then extubated and brought to recovery with no complications. Complications: none Post-operative Condition: stable Disposition: PACU Plan for aftercare: Inpatient. Up with PT. 50% weight-bearing on the right leg. We will keep her on Lovenox while in the hospital and then transition her to aspirin for DVT prophylaxis upon discharge.
[2020-05-08] MEDS: OXYCODONE IR 10 MG TABLET PO ×2 (19:01→22:06)
[2020-05-08] MEDS: LACTATED RINGERS 1,000 ML 125 ML IV (19:07)
[2020-05-08] MEDS: ASPIRIN EC 81 MG TABLET PO (21:15)
[2020-05-08] MEDS: ACETAMINOPHEN 325 MG TABLET 975 MG PO (21:16)
--- NOTE | 2020-05-08 23:23 | PC.NURSE ---
Pt to floor from PACU @ 1800; , Garrett in room; PO oxycodone for moderate pain; Hemovac compressed; Gauze drsgs X3 secured with tegaderm; c/m/s to RLE positive; PPP; LS clear; RA=95%; IS 1700 X 5 breaths; IV fluids infusing; bed alarm active; call light within reach
[2020-05-09] VITALS (7 sets, daily range): BP systolic 113–135; BP diastolic 60–76; PULSE 101–105; RESP 16–20; TEMP 36.2–36.8; O2SAT 94–100
[2020-05-09] MEDS: CEFAZOLIN 2 GM/100 ML FROZ.PIGGY IV ×2 (00:04→08:39)
[2020-05-09] MEDS: LACTATED RINGERS 1,000 ML 125 ML IV (05:00)
[2020-05-09] MEDS: OXYCODONE IR 10 MG TABLET PO ×5 (05:01→23:39)
[2020-05-09 06:33] LABS: Add Manual Diff / Slide Review NO; Basophils Absolute Auto 0 /uL (0-100); Basophils Percent Auto 0.4 % (0-2); Eosinophils Absolute Auto 0 /uL (0-450); Hematocrit 30.2 % (36-46); Hemoglobin 9.9 g/dL (12.0-16.0); Lymphocytes Absolute Auto 800 /uL (1100-4500); Lymphocytes Percent Auto 10.1 % (25-40); Mean Corpuscular Hemoglobin 29.3 PG (26-34); Mean Corpuscular Volume 88.9 fL (80-100); Monocytes Absolute Auto 500 /uL (0-900); Neutrophils Absolute Auto 6900 /uL (1500-7000); Neutrophils Percent Auto 83.5 % (50-75); Platelet Count 156 X10^3/uL (150-400); Red Blood Cell Count 3.39 X10^6/uL (4.0-5.2); Red Cell Distribution Width 13.9 % (11.6-14.8); White Blood Cell Count 8.3 X10^3/uL (4.5-11.0)
[2020-05-09 06:45] LABS: Alanine Aminotransferase 76 IU/L (<35); Albumin 3.5 g/dL (3.5-5.0); Albumin Globulin Ratio 1.2 (1.0-2.8); Alkaline Phosphatase 65 U/L (38-126); Aspartate Aminotransferase 57 IU/L (14-36); BUN Creatinine Ratio 24.6 (6-22); Bilirubin Total 0.3 mg/dL (0.2-1.3); Blood Urea Nitrogen 15 mg/dL (7-17); Calcium 8.7 mg/dL (8.4-10.2); Carbon Dioxide 28 mmol/L (22-32); Chloride 107 mmol/L (98-107); Estimated Glomerular Filt Rate > 60.0 mL/min (>60); Glucose 146 mg/dL (80-110); HEMOLYSIS < 15 (0-50); Potassium 3.9 mmol/L (3.4-5.1); Sodium 136 mmol/L (137-145); Total Protein 6.5 g/dL (6.3-8.2)
--- NOTE | 2020-05-09 07:53 | P.PN_ITS ---
Subjective Subjective Date Patient Seen: 05/09/20 Time Patient Seen: 07:54 Interval history: She is doing very well. Feels much better now that her hip has been stabilized Exam Vital Signs (past 8 hours): - 05/09/20 03:33 Temperature 98.0 F Pulse Rate 103 H Respiratory Rate 16 Blood Pressure 135/76 Pulse Oximetry 94 Oxygen Delivery Method Room Air Oxygen Flow Rate 0 Const Orientation: alert and oriented x3 Extrem Other: CDI. Drain output 25 mL. Soft calf, easily wiggles toes and ankle. Objective Labs Result Diagrams: 05/09/20 06:13 05/09/20 06:13 Labs: Laboratory Results - last 24 hr 05/09/20 05/09/20 06:13 06:13 WBC 8.3 RBC 3.39 L Hgb 9.9 L Hct 30.2 L MCV 88.9 MCH 29.3 MCHC 33.0 RDW 13.9 Plt Count 156 Neut % (Auto) 83.5 H Lymph % (Auto) 10.1 L [place] % (Auto) 6.0 Eos % (Auto) 0.0 L Baso % (Auto) 0.4 Neut # (Auto) 6900 Lymph # (Auto) 800 L [place] # (Auto) 500 Eos # (Auto) 0 Baso # (Auto) 0 Sodium 136 L Potassium 3.9 Chloride 107 Carbon Dioxide 28 BUN 15 Creatinine 0.61 Estimated GFR > 60.0 BUN/Creatinine Ratio 24.6 H Glucose 146 H Calcium 8.7 Total Bilirubin 0.3 AST 57 H ALT 76 H Alkaline Phosphatase 65 Total Protein 6.5 Albumin 3.5 Globulin 3.0 Albumin/Globulin Ratio 1.2 PFSH Medical History Acid reflux Depression History of suicide attempt Surgical History H/O knee surgery Status post right knee replacement Family History Other Adopted Social History household members: spouse Smoking Status: Former smoker alcohol intake: former Assessment & Plan Post-op Postoperative Procedures: Procedures Operation Date: 05/08/20 14:45 Actual Procedures Side Surgeon p IM Nail Hip Fx Right Mike Marcos MD She is doing well. Mobilize today with physical therapy. 50% weight-bearing on the right leg. Anticipate discharge to care home in a few days. Quality VTE Deep Vein Thrombosis/Pulmonary Embolism Present on Admission: No
[2020-05-09] MEDS: ENOXAPARIN 40 MG/0.4 ML SYRINGE SUBCUT (08:39)
[2020-05-09] MEDS: ASPIRIN EC 81 MG TABLET PO (08:40)
[2020-05-09] MEDS: PANTOPRAZOLE 20 MG TABLET PO (08:40)
[2020-05-09] MEDS: polyethylene glycoL 3350 17 GM POWD.PACK PO (08:40)
[2020-05-09] MEDS: DOCUSATE 100 MG CAPSULE PO ×2 (08:40→19:57)
[2020-05-09] MEDS: ACETAMINOPHEN 325 MG TABLET 975 MG PO ×3 (08:40→19:57)
--- NOTE | 2020-05-09 10:48 | OT.IP.EVAL ---
Current Diagnoses Displaced subtrochanteric fracture of right femur, initial encounter for closed fracture (05/08/20) Surgery Performed Operation Date: 05/08/20 14:45 Actual Procedures p IM Nail Hip Fx(Right) - Mike Marcos MD Past Medical History (Last Reviewed 05/08/20 @ 07:25 by Mike Marcos MD) Acid reflux Depression History of suicide attempt Surgical History (Last Reviewed 05/08/20 @ 07:25 by Mike Marcos MD) H/O knee surgery Status post right knee replacement Occupational Therapy Inpatient Evaluation/Re-Eval M1 PT/OT-IP Prior Functional Status Start: 05/09/20 08:40 Freq: NEEDED Status: Active Protocol: Document 05/09/20 12:14 CGR (Rec: 05/09/20 12:39 CGR [id number]) Medical Review Prior Functional Status Medical History Reviewed Yes Diet/Fluid Consistency Regular Communication Pt is an effective verbal communicator. Mobility and Gait Pt stated she is slow walker d /t L knee pain and L shoulder pain. She normally doesnt need AD but only able to george 20 yards of distance. She has been using walker lately d/t increased pain. Activities of Daily Living and IADL's IND for ADLs, needed assistance from for house cleaning and lifting. Prior Functional Level (Other details) Pt has hx of R TKA. Social History Household Members spouse Living Arrangements RV Number of Floors (Floors) One Floor Number of Stairs To Enter/Railing? 4 SUMAN with L rail pt lives in a trailer which the hallway does not fit her walker. 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 They moved from there to [place] and are living in an . is 76 yo who has COPD and O2 dependent (2L at all time). He is not able to perform any lifting/ strenous activites if pt is very immobile. M2 OT-IP Current Condition Start: 05/09/20 12:13 Freq: Status: Active Protocol: Document 05/09/20 12:14 CGR (Rec: 05/09/20 12:39 CGR [id number]) Occupational Therapy Current Condition Current Condition Evaluation Date 05/09/20 Treatment Diagnosis R hip fx s/p sx Diagnosis Onset Date 05/08/20 Weight Bearing Status Weight Bearing Status Partial Weight Bearing Allowed Weight Bearing Amount (enter % 50% or #) (%) M3 OT- IP Subjective and Pain Start: 05/09/20 12:13 Freq: Status: Active Protocol: Document 05/09/20 12:14 CGR (Rec: 05/09/20 12:39 CGR [id number]) OT- Subjective Occupational Therapy Visit Type Type Initial Evaluation Visit Start Time 09:50 Visit Stop Time 10:48 Total Visit Minutes 58 Notes Partial co-treat with P.T. OT Pain Assessment Pain When Pain Assessed At Rest Pain Present Pain Present Pain Reported Location Right Hip Scale Used states tolerable. Management Techniques Distraction,Modification of Treatment,Re-positioning M4 OT- IP ADL's Start: 05/09/20 12:13 Freq: Status: Active Protocol: Document 05/09/20 12:14 CGR (Rec: 05/09/20 12:39 CGR [id number]) OT [id number] Comments OT Self-Feeding Comments Not meal time OT ADL-Grooming General Evaluation Grooming Ability Standby Assistance,Maximum Assistance Areas Needing Assistance Combing/Brushing Hair,Face Washing Comments OT Grooming Comments SBa for face washing. Max a for hair d/t significant knotting and L shld pain. OT ADL-Oral Care General Eval Oral Care Ability Standby Assistance Areas of Assistance Brushing Teeth,Retrieving/Set- Up of Items Comments Oral Care Comments seated in chair OT ADL-Dressing General Eval Upper Body Dressing Ability Standby Assistance Lower Body Dressing Ability Total Assistance Areas Needing Assistance Socks Comments OT Dressing Comments socks for transfer and clean gown with bird bath OT ADL-Toileting Comments OT Toileting Comments Not performed, pt with tram. OT ADL-Bathing Bathing Type Bathing Type Sponge Bath General Evaluation Bathing Ability Moderate Assistance Areas Needing Assistance Retrieving/Setting Up Items, Wash/Dry Back,Wash/Dry Perineal Area,Wash/Dry Lower Extremities Comments OT Bathing Comments Pt requested shower but agreeable once up to sponge bath as she is shaky with mobility. Pt performed bathing seated in chiar and sit to stand for pericare. M5 OT- IP IADL's Start: 05/09/20 12:13 Freq: Status: Active Protocol: Document 05/09/20 12:14 CGR (Rec: 05/09/20 12:39 CGR [id number]) OT-Instrumental Activities of Daily Living Deficits IADL Deficits Identified No Deficits Home Safety Awareness Awareness of Need for Assistance at Home Good Awareness Ability to Problem Solve Emergency Able to Problem Solve Situations Medication Management Medication Management No Deficits Identified Money Management Money Management No Deficits Identified Meal Preparation Meal Preparation Caregiver Provides Assist Cultural Centre Manager Cultural Centre Manager Caregiver Provides Assist Driving Driving Comments 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 OT- IP Functional Cognition Start: 05/09/20 12:13 Freq: Status: Active Protocol: Document 05/09/20 12:14 CGR (Rec: 05/09/20 12:39 CGR [id number]) Cognitive Factors Limiting Selfcare Function Cognitive Ability Level of Alertness Alert Patient Orientation Name,Age,Birthday,Month,Date, Year,Day of Week,Place, Situation Attention Span Ability Capable of Focused Attention, Capable of Sustained Attention Ability to Follow Commands Able to Follow Multi-Step Commands Memory Description No Deficits Noted Safety Awareness No Deficits Noted Problem Solving Ability No deficits Noted OT- Vision and Hearing OT- Hearing Assessment OT- Hearing Assessment WFL OT- Vision Assessment Visual Acuity Glasses All The Time Visual Attentiveness WFL Occular Pursuits WFL Visual Convergence WFL M7 OT- IP Mobility and Balance Start: 05/09/20 12:13 Freq: Status: Active Protocol: Document 05/09/20 12:14 CGR (Rec: 05/09/20 12:39 CGR [id number]) OT- Bed Mobility Assessment Rolling Type of Rolling Roll to Right Level of Assistance Minimal Assistance Supine to Sit Supine to Sit Assist Minimal Assistance OT-Transfer Assessment Sit to and From Stand Sit to and from Stand Minimal Assistance Transfers Transfer Ability Minimal Assistance Technique Transfer Destination Bed,Chair Transfer Technique Stand Step Pivot Devices Transfer Assistive Devices Gait Belt,Front Wheeled Walker Comments Mobility Comments Pt needed max extra time to perform bed mobility. Pt was able to maintain LB weight bearing at 50% with stand pivot to chair. OT- Gait Assessment Comments Gait Ability Comments Did not occur OT- Balance Assessment Sitting Balance and Reactions Static Sitting Balance Ability Good Dynamic Sitting Balance Ability Fair M8 OT- IP Objective Assessments Start: 05/09/20 12:13 Freq: Status: Active Protocol: Document 05/09/20 12:14 CGR (Rec: 05/09/20 12:39 CGR [id number]) OT Gross Range of Motion Upper Extremity Range of Motion Assessment Left Impaired ROM Impairments L shld with pain and 0-80 OT Strength Comments Strength Comments RUE grossly 4+/5, LUE grossly 4/5 OT- Coordination Assessment Upper Extremity Finger to Nose Test Within Functional Limits Finger Tapping Test Within Functional Limits OT-Muscle Tone Assessment Muscle Tone WNL Yes OT Sensation Assessment Edema Edema Absent M9 OT- IP Assessment and Plan Start: 05/09/20 12:13 Freq: Status: Active Protocol: Document 05/09/20 12:14 CGR (Rec: 05/09/20 12:39 CGR [id number]) OT Summary Assessment and Plan Potential Rehabilitation Potential Excellent Analytic Complexity at Evaluation Moderate Summary OT Impairments Pain,Range of Motion,Strength, Balance,Functional Mobility, Grooming,Dressing,Toileting, Bathing,Toilet Transfers, Shower Transfers,Activity Tolerance Progress Towards Goals Slow Progress due to Pain Assessment Summary Pt presents as a moderate complexity evaluation s/p admit for GLF and R hip fx. Pt underwent R hip ORIF and is now 50% WB to the RLE. Additionally, pt found to have small joint effusion in the L knee and severe arthritis in the L shld. Pt is determined and was able to perform bed mobility with max extra time and min a and transfers with min a. Pt would benefit from d /c to SNF as she has to get up stairs into her trailer with 50% WB, and her trailer is too small to use the walker for all mobility. Goals Grooming Goal Independent Dressing Goal Independent Toileting Goal Independent Bathing Goal Independent Toilet Transfer Goal Independent Shower Transfer Goal Independent Days to Meet Goals 20 Frequency of Treatment Frequency Of Treatment Once a Day Treatment Plan OT Treatment Plan ADL Training,Functional Mobility,Patient/Family Education,Discharge Planning Other Treatment Recommendations and Next Shower if able. Treatment Focus Discharge Recommendations OT Discharge Recommendations SNF Rehab Home Equipment Needs TBD Transportation Needs at Discharge Private Vehicle
--- NOTE | 2020-05-09 11:06 | CM.DPC ---
Addendum entered by AURORA Clifford 05/09/20 14:56: ADD: Per PT/OT, recommending SNF at d/c before safe return [facility] to [facility] with spouse. GLO called [facility] and discussed case with KOJO Angela who is working with Magdalena to get a case started towards then reviewing for SNF auth. Coreen recommends sending SNF clinicals to both them and the [facility] fax number just to confirm that a case gets started towards SNF auth. ROMAIN Huang kindly faxes to both locations. SW discussed pt's current abilities with PT/OT and pt has not yet ambulated so further PT/OT will be needed when available for final SNF determination. SW met bedside with pt and explained role and pt confirms that her preference is SNF at d/c since she is quite below baseline and that she has reviewed SNF Choice List provided yesterday and preference is [facility] if possible. SW updated her that they can accept pending insurance SNF auth and pt very appreciative. SW discussed the possibility that [facility] may not auth SNF and pt aware but hopeful for insurance auth. PASRR completed in anticipation of SNF. Plan: GLO to follow for close coordination with [facility] KOJO Pino and faxing additional PT/OT notes towards determining if they will auth SNF. [facility] accepts pending auth. AURORA Clifford Original Note: DCP Cont SNF vs HH Per MD, pt tolerated surgery well and PT/OT ordered and pending towards determining d/c needs. GLO called [facility] main line and talked to Magdalena VARMA and she was able to eventually pull up pt's [facility] information and pt still in the process of having coverage active in [place] although she has an assigned [facility] Adv #[id number] but not active yet but looks like will kick in 05/11/20 in two days. Magdalena sending [facility] an alert that pt admitted to [facility] and may need services at d/c. Requests SW to fax a courtesy clinicals fax on pt to [facility] fax #[phone] and their contact phone is [phone] but Magdalena will send inner-office alert to them as well. Magdalena asking for pt's facesheet and clinicals be faxed to her for review and to input pt's admission into their system. ROMAIN Huang kindly faxes above request to both Magdalena at [facility] and clinicals to the [facility] fax #. Plan: SW to follow closely after PT/OT initial eval and recommendations towards determining SNF vs HH at d/c and further coordination with Magdalena at [facility] [phone]. AURORA Clifford
--- NOTE | 2020-05-09 11:45 | PT.IIE ---
Surgery Performed Operation Date: 05/08/20 14:45 Actual Procedures p IM Nail Hip Fx(Right) - Mike Marcos MD Surgical History (Last Reviewed 05/08/20 @ 07:25 by Mike Marcos MD) H/O knee surgery Status post right knee replacement Medical History (Last Reviewed 05/08/20 @ 07:25 by Mike Marcos MD) Acid reflux Depression History of suicide attempt Physical Therapy Inpatient Evaluation/Re-Eval M1 PT/OT-IP Prior Functional Status Start: 05/09/20 08:40 Freq: NEEDED Status: Active Protocol: Document 05/09/20 11:14 HH (Rec: 05/09/20 11:44 [email or web address]) Medical Review Prior Functional Status Medical History Reviewed Yes Diet/Fluid Consistency Regular Communication no deficits noted. Mobility and Gait Pt stated she is slow walker d /t L knee pain and L shoulder pain. She normally doesnt need AD but only able to george 20 yards of distance. She has been using walker lately d/t increased pain. Activities of Daily Living and IADL's IND for ADLs, needed assistance from for house cleaning and lifting. Prior Functional Level (Other details) Pt has hx of R TKA. Social History Household Members spouse Living Arrangements RV Number of Floors (Floors) One Floor Number of Stairs To Enter/Railing? 4 SUMAN with L rail pt lives in a trailer which the hallway does not fit her walker. 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 They moved from there to [place] by livining in the RV. is 76 yo who has COPD and O2 dependent (2L at all time). He is not able to perform any lifting/ strenous activites if pt is very immobile. M2 PT-IP Current Condition Start: 05/09/20 08:40 Freq: NEEDED Status: Active Protocol: Document 05/09/20 11:14 HH (Rec: 05/09/20 11:44 [id number]) Physical Therapy Current Condition Current Condition Evaluation Date 05/09/20 Treatment Diagnosis R ORIF, difficulty in walking, weakness Onset Date 05/08/20 Weight Bearing Status Weight Bearing Status Partial Weight Bearing Allowed Weight Bearing Amount (enter % 50% weight-bearing on the or #) (%) right leg. M3 PT-IP Subjective Start: 05/09/20 08:40 Freq: NEEDED Status: Active Protocol: Document 05/09/20 11:14 (Rec: 05/09/20 11:44 [email or web address]) Subjective Physical Therapy Visit Type Type Initial Evaluation Visit Start Time 09:40 Visit Stop Time 10:20 Total Visit Minutes 40 Notes at bedside. Co-tx with OT CJ Number of FLOORHAND Visits 0 Physical Therapy Visit Comments Patient Comments I want to see what i can do. Patient Goals To regain mobility and strength prior to dc home Therapy Pain Assessment Pain When Pain Assessed During Mobility Pain Present Pain Present Pain Reported Location Right Hip Intensity 6 Scale Used Lal-Perdomo (Faces) Description Aching,Acute,With Movement Pain Management Techniques Timing of Activity with Medications M4 PT-IP Mobility and Gait Start: 05/09/20 08:40 Freq: NEEDED Status: Active Protocol: Document 05/09/20 11:14 (Rec: 05/09/20 11:44 [email or web address]) PT-Bed Mobility Assessment Supine to Sit Supine to Sit Minimal Assistance Scooting Scooting to Edge of Bed Minimal Assistance PT-Transfer Assessment Sit to and From Stand Sit to and from Stand Minimal Assistance,1 Person Assistance,Use of Upper Extremities Equipment Transfer Assistive Device Gait Belt,Front Wheeled Walker Orthotic/Prosthetic Devices or Brace: No Transfers Transfer Destination Bed,Chair Transfer Technique Stand Pivot Transfer Ability Level of Assist Minimal Assistance,1 Person Assistance,Use of Upper Extremities Comments Mobility Comments Pt was in bed upon PT and OT arrival. at bedside. Pt was AxO4 and very eager to get better. Educated pt with WB with RLE at 50% and she was receptive. She then instructed to sit up at R EOB. Pt took approx 5 mins to complete. She initially got up from supine to long sit but it was difficulty d/t L shoulder pain. She used her LLE to lift RLE and pivot to R side slowly. She needed cues to weight shift laterally to pivot and she did need min A for scoot to EOB at the end. Pt got fatigue during bed mobility and needed multiple rest breaks in between. She then stood up at EOB with mostly WB on LLE with FWW. She was able to complete stand pivot/ lateral scoot to her R side with FWW with min A. Cues needed for walker management and hand placements on chair armrest during chair transfers . Pt sat in chair comfortably and no increased discomfort noted. Call light placed within reach. Went through post op booklet with her. Gait Assessment Comments Gait Comments unable to amb yet Stair Climbing Assessment Comments Stair Climbing Comments unable to assess yet PT-Balance Assessment Sitting Balance and Reactions Static Sitting Balance Ability Good Dynamic Sitting Balance Ability Good Standing Balance and Reactions Static Standing Balance Ability Fair Dynamic Standing Balance Ability Fair Device Used FWW M5 PT-IP Objective Assessments Start: 05/09/20 08:40 Freq: NEEDED Status: Active Protocol: Document 05/09/20 11:14 (Rec: 05/09/20 11:44 [email or web address]) Orientation Orientation/Cognition Level of Alertness Alert Orientation Name,Age,Birthday,Month,Date, Year,Day of Week,Place, Situation Language Function Ability No Deficits Noted Safety Awareness Understands Safety Issues Memory Description No Deficits Noted Gross Range of Motion Upper Extremity ROM Assessment Left Impaired Impairments L up to 100 degrees of shoulder abduction/ flexion d/ t pain Lower Extremity ROM Assessment Right Impaired Strength Upper Extremity Strength Assessment Left Impaired Shoulder 3+/5 Elbow 4-/5 Wrist 4-/5 Lower Extremity Strength Assessment Right Impaired Hip 3-/5 Knee 3-/5 Ankle 4+/5 Comments Strength Comments unable to complete LAQ on R no active hip flexion Coordination Assessment Gross Coordination Gross Coordination WNL Sensation Assessment Sensation Gross Sensation WNL M6 PT-IP Treatment Start: 05/09/20 08:40 Freq: NEEDED Status: Active Protocol: Document 05/09/20 11:14 (Rec: 05/09/20 11:44 [email or web address]) Physical Therapy Treatment Exercises Exercises Ankle Pumps,Quad Sets,Heel Slides Education Education Provided Precautions,Weight Bearing Status,Post-Op Packet,Safety M7 PT-IP Assessment and Plan Start: 05/09/20 08:40 Freq: NEEDED Status: Active Protocol: Document 05/09/20 11:14 (Rec: 05/09/20 11:44 [email or web address]) PT Summary Assessment and Plan Potential Rehabilitation Potential Excellent Status of Condition at Evaluation Stable Summary Impairments Pain,ROM,Strength,Balance,Bed Mobility,Transfers,Gait, Activity Tolerance Assessment Summary This is a 64yo female s/p POD1 ORIF at R hip after GLF. PLOF = Pt and her recently moved from [facility] to [place] with their RV. She is a slow walker d/t L knee pain and L shoulder pain. She normally doesnt need AD but only able to george 20 yards of distance. She has been using walker lately d/t increased pain. She is IND for ADLs, needed assistance from for house cleaning. However, is O2 dependent and has limited activity tolerance . CLOF= pt is 50% WB on RLE post surgically. She did fairly well with PT today who needed min A for bed mobility and stand pivot transfer from bed to chair on her R side with FWW. Pt is well aware of her capability and understanding the extensive care she needs at this point. Pt will not be safe to d/c home d/t her limited assistance and unsafe home environment (trailer with narrow hallway without any DMEs.) Pt will need short term rehab to improve her mobility and strength prior to safely d/c home. Goals Bed Mobility Goal Standby Assistance Transfer Goal Contact Guard Assistance,Front Wheeled Walker Gait Goal Contact Guard Assistance,Front Wheel Walker Gait Distance 20 Days to Meet Goals 10 Frequency of Treatment Frequency Of Treatment Twice a Day Treatment Plan Physical Therapy Treatment Plan Bed Mobility Training,Transfer Training,Gait Training, Therapeutic Exercise,Balance Retraining,Post Op Education, Discharge Planning,Hot or Cold Pack,Neuromuscular Re-ed Other Recommendations and Next Treatment transfer training as george Focus BSC transfer gait training if possible Recommendations To Nursing Amount of Assist Needed 1 Person Assist Discharge Recommendations PT Discharge Recommendations SNF Rehab Equipment Needed for Home Before BSC, shower chair, cardiology nurse practitioner, Discharge grab bars in shower and toiler , raised toilet seat if go home, B rail for steps Transportation Needs at Discharge Wheelchair/Cabulance
--- NOTE | 2020-05-09 14:45 | P.PN_ITS ---
Subjective Subjective Date Patient Seen: 05/09/20 Interval history: Lona Block is a 64-year-old female with a past medical history significant for depression, GERD, and osteoporosis with previous right knee replacement who presented to the ED after ground level fall with severe right hip pain. The patient is resting in bed comfortably. She reports fatigue after working with physical therapy in sitting in chair for several hours. She endorses right hip pain which is controlled with pain medication. She currently reports her pain level is a +2/10. She has no other complaints and denies headache, cough, shortness of breath, chest pain, abdominal pain, nausea, vomiting, fever, chills, dysuria, diarrhea or constipation. She is voiding via Gauthier catheter. She has not yet had a bowel movement in a bowel regimen has been implemented. She is up ambulating with with assistance. She is planning for skilled rehabilitation as she lives in a 5th wheel with her elderly end-stage COPD has been and does not believe she could rehab as an outpatient in confined space. Exam Vital Signs (past 8 hours): - 05/09/20 07:53 05/09/20 08:00 05/09/20 11:00 Temperature 98.2 F 97.1 F L Pulse Rate 105 H 102 H Respiratory Rate 16 16 Blood Pressure 116/71 123/60 Pulse Oximetry 100 97 99 Oxygen Delivery Method Room Air Oxygen Flow Rate 0 Narrative Exam Narrative: General: Older female lying in bed and in no acute distress, well-developed, well-nourished, appropriately interactive. HEENT: Normocephalic, atraumatic. External ears without defect. Pupils equal, round, and reactive to light. Anicteric sclerae, moist conjunctivae, and no lid lag. Oropharynx free of erythema and cobble stoning with moist mucosa. Neck: Supple with full range of motion. No jugular venous distension. No bruits. No lymphadenopathy or thyromegaly. Cardiovascular: Regular rate and rhythm without murmurs, rubs, or gallops appreciated. Pulmonary: Clear to auscultation bilaterally without crackles, wheezes, or rhonchi. Normal respiratory effort with no use of accessory muscles. Abdomen: Soft, obese, bowel sounds present, nontender, nondistended. No hepatosplenomegaly or masses appreciated. Extremities: No clubbing, cyanosis, or edema. Right hip with dressing in place C/D/I without surrounding edema or ecchymosis and hemovac with minimal serosanguineous output. Skin: Normal temperature, turgor, and texture; no rash, ulcers, or subcutaneous nodules appreciated. Neurological: Cranial nerves grossly intact. Psychiatric: Normal mood and affect. Alert and oriented to person, place, and time. Objective Labs Result Diagrams: 05/09/20 06:13 05/09/20 06:13 Labs: Laboratory Results - last 24 hr 05/09/20 05/09/20 06:13 06:13 WBC 8.3 RBC 3.39 L Hgb 9.9 L Hct 30.2 L MCV 88.9 MCH 29.3 MCHC 33.0 RDW 13.9 Plt Count 156 Neut % (Auto) 83.5 H Lymph % (Auto) 10.1 L Wright % (Auto) 6.0 Eos % (Auto) 0.0 L Baso % (Auto) 0.4 Neut # (Auto) 6900 Lymph # (Auto) 800 L Wright # (Auto) 500 Eos # (Auto) 0 Baso # (Auto) 0 Sodium 136 L Potassium 3.9 Chloride 107 Carbon Dioxide 28 BUN 15 Creatinine 0.61 Estimated GFR > 60.0 BUN/Creatinine Ratio 24.6 H Glucose 146 H Calcium 8.7 Total Bilirubin 0.3 AST 57 H ALT 76 H Alkaline Phosphatase 65 Total Protein 6.5 Albumin 3.5 Globulin 3.0 Albumin/Globulin Ratio 1.2 [facility] Medical History Acid reflux Depression History of suicide attempt Surgical History H/O knee surgery Status post right knee replacement Family History Other Adopted Social History household members: spouse Smoking Status: Former smoker alcohol intake: former Assessment & Plan Assessment & Plan narrative: Lona Block is a 64-year-old female with a past medical history significant for depression, GERD, and osteoporosis with previous right knee replacement who presented to the ED after ground level fall with severe right hip pain. 1. Acute pathological right hip fracture, present on admission. Active. -Patient presented after ground level fall with severe right hip pain. -Right hip x-ray demonstrated right proximal femur fracture. -Consulted orthopedic surgery, Dr. Brown, who performed ORIF of right hip fracture with intramedullary nail and screw fixation. Continue postoperative management, pain control and VTE prophylaxis per orthopedic surgery. -Continue enoxaparin 40 mg daily for VTE prophylaxis and plan to transition to ASA on discharge. -Continue pain control with acetaminophen 975 mg 3 times daily and oxycodone 5- 10 mg every 3 hours as needed for moderate to severe pain and hydromorphone 0.5 mg every 1 hour as needed for severe breakthrough pain. -Continue physical and occupational therapy evaluation and treatment. -Continue calcium and vitamin D3 supplementation. Patient will need to be treated for osteoporosis outpatient per PCP or ortho. 2. Acute blood loss anemia, not present on admission. Active. -Initial hemoglobin 12.6. Hemoglobin trended down to 9.9 as anticipated with ORIF. No signs of active bleeding. Transfusion goal hemoglobin < 7.0. -Could consider starting iron supplementation. -Continue monitor H&H daily. 3. Prediabetes, chronic, present on admission. Stable. -Hemoglobin A1c 6.1% indicative of prediabetes. -Continue [facility] blood glucose checks and low-dose correctional scale insulin. Consider starting metformin outpatient for optimal glycemic control. -Recommended lifestyle modification including: diet and exercise which was discussed in detail. -Consulted dietitian and we appreciate her time and recommendations. 4. GERD, chronic, present on admission. Stable. -Continue equivalent of home PPI with pantoprazole 20 mg daily. 5. Depression, chronic, present on admission. Stable. -Continue home duloxetine 60 mg daily and trazodone 150 mg daily bedtime. 6. Obesity, chronic, present on admission. Stable. -BMI 35.7. -Consulted dietitian and we appreciate her time and recommendations. -Continue physical and occupational therapy evaluation and treatment as above. Code status: Full code, surrogate decision maker is designated as patient's spouse Garrett Block VTE prophylaxis: Enoxaparin, SCDs Disposition patient likely to discharge to longterm facility for continued rehabilitation the next 1-2 days. Quality VTE Deep Vein Thrombosis/Pulmonary Embolism Present on Admission: No
--- NOTE | 2020-05-09 14:51 | PC.NURSE ---
Ortho: Pt reports she is feeling much better today. Pain in control and very few muscle spasms. No need for any vistaril. Po pain meds x2. Has been able to work w/PT and sat in the chair for several hours. Dressing is dry/intact. Resting quietly.
--- NOTE | 2020-05-09 15:28 | CM.DPNOTE ---
Faxed all clinicals including pt/ot notes per Tamela to [facility]. Also sent them seperately for SNF referral. Reina Rice CM Asst.
--- NOTE | 2020-05-09 15:42 | PT.IPTN ---
Current Diagnoses Displaced subtrochanteric fracture of right femur, initial encounter for closed fracture (05/08/20) Surgery Performed Operation Date: 05/08/20 14:45 Actual Procedures p IM Nail Hip Fx(Right) - Mike Marcos MD Physical Therapy Treatment Note M2 PT-IP Current Condition Start: 05/09/20 08:40 Freq: NEEDED Status: Active Protocol: Document 05/09/20 11:14 HH (Rec: 05/09/20 11:44 [id number]) Physical Therapy Current Condition Current Condition Evaluation Date 05/09/20 Treatment Diagnosis R ORIF, difficulty in walking, weakness Onset Date 05/08/20 Weight Bearing Status Weight Bearing Status Partial Weight Bearing Allowed Weight Bearing Amount (enter % 50% weight-bearing on the or #) (%) right leg. M3 PT-IP Subjective Start: 05/09/20 08:40 Freq: NEEDED Status: Active Protocol: Document 05/09/20 15:03 SP (Rec: 05/09/20 16:54 SP [id number]) Subjective Physical Therapy Visit Type Type Treatment Note Visit Start Time 15:03 Visit Stop Time 15:42 Total Visit Minutes 39 Number of TOW CAR DRIVER Visits 1 Physical Therapy Visit Comments Patient Comments I am feeling little shaky but not cold, not sure why. Patient Goals To regain mobility and strength prior to dc home Therapy Pain Assessment Pain When Pain Assessed During Mobility Pain Present Pain Present Pain Reported Location Right Hip Intensity 1 Scale Used 1/10 at rest, up to 4/10 briefly during mobility Description Aching,Tender,With Movement Pain Behaviors Facial Grimacing,Guarding, Restlessness Pain Management Techniques Re-positioning,Timing of Activity with Medications M4 PT-IP Mobility and Gait Start: 05/09/20 08:40 Freq: NEEDED Status: Active Protocol: Document 05/09/20 15:03 SP (Rec: 05/09/20 16:54 SP [id number]) PT-Bed Mobility Assessment Supine to Sit Supine to Sit Minimal Assistance,Moderate Assistance,1 Person Assistance Scooting Scooting to Edge of Bed Contact Guard Assistance, Minimal Assistance PT-Transfer Assessment Sit to and From Stand Sit to and from Stand Minimal Assistance,1 Person Assistance,Use of Upper Extremities Equipment Transfer Assistive Device Gait Belt,Front Wheeled Walker Orthotic/Prosthetic Devices or Brace: No Transfers Transfer Destination Chair Transfer Technique Stand Step Pivot Transfer Ability Level of Assist Minimal Assistance,Use of Upper Extremities Comments Mobility Comments TOW CAR DRIVER gave education on 50% WB RLE awareness for proper form once in standing while aware of upright posture and LUE pain tolerance experiences during activity in WB safety, with good understanding. Instructed supine exercises slow calming breathing then RLE self support mobility using gait belt: glut and quad sets, heel slides, hip abd to encourage self mobility with good results elevated supine> sitting at EOB, Mod A for lateral R hip scoot usign draw sheet timing with pt's BUE WB and LLE bridge press through the bed to EOB. Pt required increased time for rest stops during scoot to EOB due to pain and decreased strength/ activity tolerance. Pt able to sit > stand Min A of 1 using FWW while maintaining 50% or less WB on RLE. Pt attempted to advance LLE forward but unable to tolerate > 25% WB through RLE while heavy BUE on FWW so completed lateral step RLE and lateral scoot LLE to R toward chair with cuing for body spacial awareness to center infront chair then cued reach back BUE and self slow descent to chair 20 % A. Scooted back in chair self. TOW CAR DRIVER assisted patient recline in chair with call light and all needs in reach before left , including gait belt at R foot for self mobility in long sitting. Gait Assessment Gait Gait Assistance Required: Minimum Assistance,1 Person Assist Distance (Feet) 2 Able to Maintain Weight Bearing Status Yes During Gait Assistive Devices Assistive Device Gait Belt,Front Wheeled Walker Orthotic/Prosthetic Devices or Brace: No Gait Deviations General Gait Pattern Antalgic,Decreased Stride Length,Decreased Feet Clearance,Step-to Gait Factors Limiting Gait Function Factors Limiting Gait Function Decreased Activity Tolerance, Decreased Strength,Limited Range of Motion,Pain,Poor Balance,Poor Safety Awareness Comments Gait Comments lateral RLE step, LLE lateral scoot foot bed>chair using fWW , Min A, pain increased 4/10 briefly. Stair Climbing Assessment Comments Stair Climbing Comments unable to assess yet PT-Balance Assessment Sitting Balance and Reactions Static Sitting Balance Ability Good Dynamic Sitting Balance Ability Fair Standing Balance and Reactions Static Standing Balance Ability Fair Dynamic Standing Balance Ability Fair Device Used FWW M5 PT-IP Objective Assessments Start: 05/09/20 08:40 Freq: NEEDED Status: Active Protocol: Document 05/09/20 11:14 HH (Rec: 05/09/20 11:44 [email or web address]) Orientation Orientation/Cognition Level of Alertness Alert Orientation Name,Age,Birthday,Month,Date, Year,Day of Week,Place, Situation Language Function Ability No Deficits Noted Safety Awareness Understands Safety Issues Memory Description No Deficits Noted Gross Range of Motion Upper Extremity ROM Assessment Left Impaired Impairments L up to 100 degrees of shoulder abduction/ flexion d/ t pain Lower Extremity ROM Assessment Right Impaired Strength Upper Extremity Strength Assessment Left Impaired Shoulder 3+/5 Elbow 4-/5 Wrist 4-/5 Lower Extremity Strength Assessment Right Impaired Hip 3-/5 Knee 3-/5 Ankle 4+/5 Comments Strength Comments unable to complete LAQ on R no active hip flexion Coordination Assessment Gross Coordination Gross Coordination WNL Sensation Assessment Sensation Gross Sensation WNL M6 PT-IP Treatment Start: 05/09/20 08:40 Freq: NEEDED Status: Active Protocol: Document 05/09/20 15:03 SP (Rec: 05/09/20 16:54 SP [id number]) Physical Therapy Treatment Exercises Exercises Ankle Pumps,Gluteal Sets,Quad Sets,Heel Slides,Supine Hip Abduction Knee ROM Measurement 80 deg knee flexion using gait belt on foot Education Education Provided Precautions,Weight Bearing Status,Post-Op Packet,Safety M7 PT-IP Assessment and Plan Start: 05/09/20 08:40 Freq: NEEDED Status: Active Protocol: Document 05/09/20 15:03 SP (Rec: 05/09/20 16:54 SP [id number]) PT Summary Assessment and Plan Potential Rehabilitation Potential Excellent Status of Condition at Evaluation Stable Summary Impairments Pain,ROM,Strength,Balance,Bed Mobility,Transfers,Gait, Activity Tolerance Progress Towards Goals Progressing Toward Goals,Slow Progress due to Pain,Slow Progress due to Activity Tolerance Assessment Summary Pt PLOF 20 yards with no AD. Pm tx, Mod A during bed mobility sup> sit, Min A sit> stand using FWW with cuing for hand placement. RLE lateral foot scoot using FWW bed>chair approx 3 ft while maintaining less than allowed 50% WB on RLE due to tolerance of pain Min A. Recommending short term rehab to improve her mobility and strength prior to safely d/c home. Will continue to assess progress. Goals Bed Mobility Goal Standby Assistance Transfer Goal Contact Guard Assistance,Front Wheeled Walker Gait Goal Contact Guard Assistance,Front Wheel Walker Gait Distance 20 Days to Meet Goals 10 Frequency of Treatment Frequency Of Treatment Twice a Day Treatment Plan Physical Therapy Treatment Plan Bed Mobility Training,Transfer Training,Gait Training, Therapeutic Exercise,Balance Retraining,Post Op Education, Discharge Planning,Hot or Cold Pack,Neuromuscular Re-ed Other Recommendations and Next Treatment ther ex, bed mobility, Focus transfer training as george BSC transfer gait training if possible Recommendations To Nursing Amount of Assist Needed 1 Person Assist Discharge Recommendations PT Discharge Recommendations SNF Rehab Equipment Needed for Home Before BSC, shower chair, medical pathology teacher, Discharge grab bars in shower and toiler , raised toilet seat if go home, B rail for steps Transportation Needs at Discharge Wheelchair/Cabulance
[2020-05-09] MEDS: TRAZODONE 50 MG TABLET 150 MG PO (19:57)
[2020-05-09] MEDS: MAGNESIUM HYDROXIDE 30 ML UDC PO (19:57)
[2020-05-10] VITALS (7 sets, daily range): BP systolic 95–151; BP diastolic 49–78; PULSE 99–108; RESP 16–20; TEMP 36.1–37; O2SAT 94–100
[2020-05-10 06:14] LABS: Add Manual Diff / Slide Review NO; Basophils Absolute Auto 100 /uL (0-100); Basophils Percent Auto 1.1 % (0-2); Eosinophils Absolute Auto 100 /uL (0-450); Hematocrit 28.3 % (36-46); Hemoglobin 9.4 g/dL (12.0-16.0); Lymphocytes Absolute Auto 2000 /uL (1100-4500); Lymphocytes Percent Auto 33.3 % (25-40); Mean Corpuscular HGB Conc 33.2 % (30-36); Mean Corpuscular Hemoglobin 29.5 PG (26-34); Mean Corpuscular Volume 88.9 fL (80-100); Monocytes Absolute Auto 500 /uL (0-900); Monocytes Percent Auto 8.7 % (3-14); Neutrophils Absolute Auto 3300 /uL (1500-7000); Neutrophils Percent Auto 55.9 % (50-75); Platelet Count 156 X10^3/uL (150-400); Red Blood Cell Count 3.19 X10^6/uL (4.0-5.2); Red Cell Distribution Width 13.9 % (11.6-14.8); White Blood Cell Count 5.9 X10^3/uL (4.5-11.0)
[2020-05-10 06:24] LABS: BUN Creatinine Ratio 25.8 (6-22); Blood Urea Nitrogen 17 mg/dL (7-17); Calcium 8.5 mg/dL (8.4-10.2); Carbon Dioxide 31 mmol/L (22-32); Chloride 107 mmol/L (98-107); Estimated Glomerular Filt Rate > 60.0 mL/min (>60); Glucose 119 mg/dL (80-110); HEMOLYSIS < 15 (0-50); Magnesium 2.4 mg/dL (1.6-2.3); Potassium 4.1 mmol/L (3.4-5.1); Sodium 141 mmol/L (137-145)
--- NOTE | 2020-05-10 07:20 | PM.PNPO.1 ---
Subjective Subjective Date Patient Seen: 05/10/20 Time Patient Seen: 07:20 Interval history: She is doing well. She was up with physical therapy yesterday. She was unable to tolerate any weight-bearing on the leg but she did move around a little bit. Good pain control unless she is weight-bearing. Exam Vital Signs (past 8 hours): - 05/09/20 23:32 05/10/20 06:09 Temperature 97.6 F 97.0 F L Pulse Rate 105 H 104 H Respiratory Rate 16 16 Blood Pressure 123/72 112/61 Pulse Oximetry 98 99 Oxygen Delivery Method Room Air Oxygen Flow Rate 0 Const Orientation: alert and oriented x3 Back/Spine/Pelvis Other: CDI. Drain output . Soft calf, easily wiggles toes. Objective Labs Result Diagrams: 05/10/20 05:45 05/10/20 05:45 Labs: Laboratory Results - last 24 hr 05/10/20 05/10/20 05:45 05:45 WBC 5.9 RBC 3.19 L Hgb 9.4 L Hct 28.3 L MCV 88.9 MCH 29.5 MCHC 33.2 RDW 13.9 Plt Count 156 Neut % (Auto) 55.9 D Lymph % (Auto) 33.3 D [place] % (Auto) 8.7 Eos % (Auto) 1.0 L Baso % (Auto) 1.1 Neut # (Auto) 3300 Lymph # (Auto) 2000 [place] # (Auto) 500 Eos # (Auto) 100 Baso # (Auto) 100 Sodium 141 Potassium 4.1 Chloride 107 Carbon Dioxide 31 BUN 17 Creatinine 0.66 Estimated GFR > 60.0 BUN/Creatinine Ratio 25.8 H Glucose 119 H Calcium 8.5 Magnesium 2.4 H PFSH Medical History Acid reflux Depression History of suicide attempt Surgical History H/O knee surgery Status post right knee replacement Family History Other Adopted Social History household members: spouse Smoking Status: Former smoker alcohol intake: former Assessment & Plan Post-op Postoperative Procedures: Procedures Operation Date: 05/08/20 14:45 Actual Procedures Side Surgeon p IM Nail Hip Fx Right Mike Marcos MD She is doing well. Continue to mobilize with physical therapy. Anticipate discharge to group home in the next 1-2 days. Quality VTE Deep Vein Thrombosis/Pulmonary Embolism Present on Admission: No
--- NOTE | 2020-05-10 08:35 | CM.DPC ---
Addendum entered by Lesia Wilkerson LPN 05/10/20 14:28: Met now with pt for introduction and update on the issues around her [employer] coverage. She states she had not really understood the complexity of the issues and expresses concern re the process. She is assured that the CM team members both with and [employer] are working with [employer] on this and is encouraged to focus on continued making continued progress with PT/OT. Pt confirms that her designated visitor is her Garrett but that she is also supported by her niece Yareli Coleman who does live in [place]. Pt also confirms her strong desire for snf rehab at [facility] and is aware that they keeping a bed for her at this time. Addendum entered by Lesia Wilkerson LPN 05/10/20 14:07: Left a vm now with Coreen/Federico after review of the OT/PT notes and then a followup discussion with PT Marah. Marah stated that she had just completed her 2nd session of the day and that her pain was better this afternoon and she was able to do shuffle steps for about 5 ft. Pt is also limited by L shoulder pain which seems to have worsened since surgery. Dr. Jansen has advised RN caring for pt to discuss this further with the orthopedic team. P: does remain [facility] when stable for d/c [facility] completing a case that will transfer to and then final review and auth for snf setting by [employer] team. Addendum entered by Lesia Wilkerson LPN 05/10/20 13:45: REINALDO Huang is aware that all documentation needed for [employer] on this case must go to both the [facility] fax as well as the usual [facility] fax. Addendum entered by Lesia Wilkerson LPN 05/10/20 13:36: Had lengthy phone conversation with [employer] KOJO Angela J: [phone] re the specific challenges with this particular [employer] insurance. She clarifies that her [place] team is unable to even access the clinical information that has been faxed and will not be able to see anything until the [facility] team complete their reviews. Coreen does say she has been keeping ongoing notes with verbal information CM DCP team have been providing and that she is hopeful that the snf auth will be in place by the time pt is ready for d/c. She reports that the current therapy information for today will be needed. Will call her when this is available and go over specifics verbally. Asked if the hospital would be expected to keep pt here until all this is sorted out and she stated she could not answer that until the [facility] team has completed it's work. She states there is no case yet set up for this patient at thus far. She stated she hoped to have an update by time she leaves at 1700 for the day. Performance Consultant Maribel is updated as is Dr. Jansen. Addendum entered by Lesia Wilkerson LPN 05/10/20 08:50: OT/PT notes for today will be needed as part of snf auth process. Will discuss same with therapy team and fax those as soon as they are available. Addendum entered by Lesia Wilkerson LPN 05/10/20 08:48: Pt with fall, hip fracture and to surgery evening of 05/08 for ORIF R hip. Original Note: DCP: continued: case received, EMR reviewed and followed up on the d/c planning for snf/[facility] when pt stable for same and snf auth has been received from [employer]. REINALDO Huang, confirms that she will fax the latest PT/OT notes to [employer] this morning. Have left a vm for [employer] KOJO Angela with request for an update on the status of this authorization. Do see that the payer has been confirmed by [facility] [employer] to be [facility] [employer], currently out of [place] and with a switch to [place] state May 11. P: discuss in team rounds this morning and follow up with [employer]. Surgeon Dr. Marcos was here today and his note indicates pt will likely be ready for d/c in one or two days. Hospitalist team is primary. Admission status is INPT. Will also plan to check in with [facility] and pt when more is known.
[2020-05-10] MEDS: SODIUM CHLORIDE 0.9% FLUSH 10 ML IV ×2 (08:45→21:20)
[2020-05-10] MEDS: polyethylene glycoL 3350 17 GM POWD.PACK PO (08:45)
[2020-05-10] MEDS: OXYCODONE IR 10 MG TABLET PO ×4 (08:45→23:52)
[2020-05-10] MEDS: ENOXAPARIN 40 MG/0.4 ML SYRINGE SUBCUT (08:45)
[2020-05-10] MEDS: ACETAMINOPHEN 325 MG TABLET 975 MG PO ×3 (08:46→21:19)
[2020-05-10] MEDS: PANTOPRAZOLE 20 MG TABLET PO (08:46)
[2020-05-10] MEDS: DULOXETINE 30 MG CAPSULE 60 MG PO (08:47)
[2020-05-10] MEDS: LYSINE 500 MG 1000 EACH PO (08:47)
[2020-05-10] MEDS: DOCUSATE 100 MG CAPSULE PO ×2 (08:47→21:19)
--- NOTE | 2020-05-10 09:06 | CM.DPNOTE ---
Addendum entered by Reina Rice 05/10/20 10:11: Also faxed to [facility] [phone]. Reina Rice CM Asst. Original Note: Faxed recent Dr. Marcos's, Dr. Jansen's PN, and PT/OT notes to [facility] on 05/10/20 and received fax confirmation. Reina Rice CM Asst.
[2020-05-10] MEDS: CALCIUM CARB/VIT D3 500/200 TABLET 1 EACH PO ×2 (10:31→17:40)
--- NOTE | 2020-05-10 10:34 | OT.IP.TRT ---
Current Diagnoses Displaced subtrochanteric fracture of right femur, initial encounter for closed fracture (05/08/20) Surgery Performed Operation Date: 05/08/20 14:45 Actual Procedures p IM Nail Hip Fx(Right) - Mike Marcos MD Occupational Therapy Treatment Note M2 OT-IP Current Condition Start: 05/09/20 12:13 Freq: Status: Active Protocol: Document 05/09/20 12:14 CGR (Rec: 05/09/20 12:39 CGR [id number]) Occupational Therapy Current Condition Current Condition Evaluation Date 05/09/20 Treatment Diagnosis R hip fx s/p sx Diagnosis Onset Date 05/08/20 Weight Bearing Status Weight Bearing Status Partial Weight Bearing Allowed Weight Bearing Amount (enter % 50% or #) (%) M3 OT- IP Subjective and Pain Start: 05/09/20 12:13 Freq: Status: Active Protocol: Document 05/10/20 12:59 CGR (Rec: 05/10/20 13:12 CGR [id number]) OT- Subjective Occupational Therapy Visit Type Type Progress Note Visit Start Time 10:03 Visit Stop Time 10:34 Total Visit Minutes 31 Occupational Therapy Visit Comments Patient Comments I haven't been up yet today so I don't know how I will do. OT Pain Assessment Pain When Pain Assessed During Mobility Pain Present Pain Present Pain Reported Location Left Shoulder Scale Used did not rate but states it stops me in my tracks Management Techniques Modification of Treatment,Re- positioning Right Hip Scale Used did not rate but states high Management Techniques Modification of Treatment,Re- positioning M4 OT- IP ADL's Start: 05/09/20 12:13 Freq: Status: Active Protocol: Document 05/10/20 12:59 CGR (Rec: 05/10/20 13:12 CGR [id number]) OT [id number] Comments OT Self-Feeding Comments Not meal time OT ADL-Grooming General Evaluation Grooming Ability Standby Assistance Areas Needing Assistance Retrieving/Set-up of Grooming Items,Face Washing Comments OT Grooming Comments seated in chair. OT ADL-Oral Care General Eval Oral Care Ability Standby Assistance Areas of Assistance Brushing Teeth,Retrieving/Set- Up of Items Comments Oral Care Comments seated in chair OT ADL-Dressing Comments OT Dressing Comments Not performed OT ADL-Toileting Comments OT Toileting Comments Not performed OT ADL-Bathing Comments OT Bathing Comments Not performed M5 OT- IP IADL's Start: 05/09/20 12:13 Freq: Status: Active Protocol: Document 05/09/20 12:14 CGR (Rec: 05/09/20 12:39 CGR [id number]) OT-Instrumental Activities of Daily Living Deficits IADL Deficits Identified No Deficits Home Safety Awareness Awareness of Need for Assistance at Home Good Awareness Ability to Problem Solve Emergency Able to Problem Solve Situations Medication Management Medication Management No Deficits Identified Money Management Money Management No Deficits Identified Meal Preparation Meal Preparation Caregiver Provides Assist [employer] And Shank Department Supervisor [employer] And [employer]ank Department Supervisor Caregiver Provides Assist Driving Driving Comments 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 OT- IP Functional Cognition Start: 05/09/20 12:13 Freq: Status: Active Protocol: Document 05/09/20 12:14 CGR (Rec: 05/09/20 12:39 CGR [id number]) Cognitive Factors Limiting Selfcare Function Cognitive Ability Level of Alertness Alert Patient Orientation Name,Age,Birthday,Month,Date, Year,Day of Week,Place, Situation Attention Span Ability Capable of Focused Attention, Capable of Sustained Attention Ability to Follow Commands Able to Follow Multi-Step Commands Memory Description No Deficits Noted Safety Awareness No Deficits Noted Problem Solving Ability No deficits Noted OT- Vision and Hearing OT- Hearing Assessment OT- Hearing Assessment WFL OT- Vision Assessment Visual Acuity Glasses All The Time Visual Attentiveness WFL Occular Pursuits WFL Visual Convergence WFL M7 OT- IP Mobility and Balance Start: 05/09/20 12:13 Freq: Status: Active Protocol: Document 05/10/20 12:59 CGR (Rec: 05/10/20 13:12 CGR [id number]) OT- Bed Mobility Assessment Rolling Level of Assistance Moderate Assistance,1 Person Assistance Supine to Sit Supine to Sit Assist Moderate Assistance,Maximum Assistance,1 Person Assistance Scooting Scooting to Edge of Bed Moderate Assistance,1 Person Assistance OT-Transfer Assessment Sit to and From Stand Sit to and from Stand Minimal Assistance Transfers Transfer Ability Minimal Assistance Technique Transfer Destination Bed,Chair Transfer Technique Stand Step Pivot Devices Transfer Assistive Devices Gait Belt,Front Wheeled Walker Comments Mobility Comments Pt able to perform transfer with 50% wb but had more difficulty and pain with bed mobility on this date. Pt reports significant shld pain when her arm is in certain positions. OT- Gait Assessment Comments Gait Ability Comments Not performed OT- Balance Assessment Sitting Balance and Reactions Static Sitting Balance Ability Good Dynamic Sitting Balance Ability Fair Standing Balance and Reactions Static Standing Balance Ability Fair Dynamic Standing Balance Ability Fair M8 OT- IP Objective Assessments Start: 05/09/20 12:13 Freq: Status: Active Protocol: Document 05/09/20 12:14 CGR (Rec: 05/09/20 12:39 CGR [id number]) OT Gross Range of Motion Upper Extremity Range of Motion Assessment Left Impaired ROM Impairments L shld with pain and 0-80 OT Strength Comments Strength Comments RUE grossly 4+/5, LUE grossly 4/5 OT- Coordination Assessment Upper Extremity Finger to Nose Test Within Functional Limits Finger Tapping Test Within Functional Limits OT-Muscle Tone Assessment Muscle Tone WNL Yes OT Sensation Assessment Edema Edema Absent M9 OT- IP Assessment and Plan Start: 05/09/20 12:13 Freq: Status: Active Protocol: Document 05/10/20 12:59 CGR (Rec: 05/10/20 13:12 CGR [id number]) OT Summary Assessment and Plan Potential Rehabilitation Potential Excellent Analytic Complexity at Evaluation Moderate Summary OT Impairments Pain,Range of Motion,Strength, Balance,Functional Mobility, Grooming,Dressing,Toileting, Bathing,Toilet Transfers, Shower Transfers,Activity Tolerance Progress Towards Goals Slow Progress due to Pain Assessment Summary Pt presents as a moderate complexity evaluation s/p admit for GLF and R hip fx. Pt underwent R hip ORIF and is now 50% WB to the RLE. Additionally, pt found to have small joint effusion in the L knee and severe arthritis in the L shld. Pt needed increased assist with bed mobility on this date and appears upset over her mobility and her shld pain. Discussed with nursing and . suggested to talk to ortho about further imaging of the pts shld. Notified nursing as was requested by MD. Recommend plan for discharge to SNF. Goals Grooming Goal Independent Dressing Goal Independent Toileting Goal Independent Bathing Goal Independent Toilet Transfer Goal Independent Shower Transfer Goal Independent Days to Meet Goals 20 Frequency of Treatment Frequency Of Treatment Once a Day Treatment Plan OT Treatment Plan ADL Training,Functional Mobility,Patient/Family Education,Discharge Planning Other Treatment Recommendations and Next Shower if able. Treatment Focus Discharge Recommendations OT Discharge Recommendations SNF Rehab Home Equipment Needs TBD Transportation Needs at Discharge Private Vehicle
--- NOTE | 2020-05-10 11:27 | PM.PN.1 ---
Subjective Subjective Date Patient Seen: 05/10/20 Interval history: Lona Block is a 64-year-old female with a past medical history significant for depression, GERD, and osteoporosis with previous right knee replacement who presented to the ED after ground level fall with severe right hip pain. The patient is resting in bed comfortably. She continues to have right hip pain which is controlled with pain medication. She has no other complaints and denies headache, cough, shortness of breath, chest pain, abdominal pain, nausea, vomiting, fever, chills, dysuria, diarrhea or constipation. She is voiding via Gauthier catheter. She has not yet had a bowel movement in a bowel regimen has been implemented. She is up ambulating with with assistance. Continue PT and OT. Exam Vital Signs (past 8 hours): - 05/10/20 06:09 05/10/20 09:00 05/10/20 09:21 Temperature 97.0 F L 97.4 F L Pulse Rate 104 H 99 H Respiratory Rate 16 16 Blood Pressure 112/61 127/72 Pulse Oximetry 99 99 100 Oxygen Delivery Method Room Air Oxygen Flow Rate 0 Narrative Exam Narrative: General: Older female lying in bed and in no acute distress, well-developed, well-nourished, appropriately interactive. HEENT: Normocephalic, atraumatic. External ears without defect. Pupils equal, round, and reactive to light. Anicteric sclerae, moist conjunctivae, and no lid lag. Oropharynx free of erythema and cobble stoning with moist mucosa. Neck: Supple with full range of motion. No jugular venous distension. No bruits. No lymphadenopathy or thyromegaly. Cardiovascular: Regular rate and rhythm without murmurs, rubs, or gallops appreciated. Pulmonary: Clear to auscultation bilaterally without crackles, wheezes, or rhonchi. Normal respiratory effort with no use of accessory muscles. Abdomen: Soft, obese, bowel sounds present, nontender, nondistended. No hepatosplenomegaly or masses appreciated. Extremities: No clubbing, cyanosis, or edema. Right hip with dressing in place C/D/I without surrounding edema or ecchymosis and hemovac with minimal serosanguineous output. Skin: Normal temperature, turgor, and texture; no rash, ulcers, or subcutaneous nodules appreciated. Neurological: Cranial nerves grossly intact. Psychiatric: Normal mood and affect. Alert and oriented to person, place, and time. Objective Labs Result Diagrams: 05/10/20 05:45 05/10/20 05:45 Labs: Laboratory Results - last 24 hr 05/10/20 05/10/20 05:45 05:45 WBC 5.9 RBC 3.19 L Hgb 9.4 L Hct 28.3 L MCV 88.9 MCH 29.5 MCHC 33.2 RDW 13.9 Plt Count 156 Neut % (Auto) 55.9 D Lymph % (Auto) 33.3 D [place] % (Auto) 8.7 Eos % (Auto) 1.0 L Baso % (Auto) 1.1 Neut # (Auto) 3300 Lymph # (Auto) 2000 [place] # (Auto) 500 Eos # (Auto) 100 Baso # (Auto) 100 Sodium 141 Potassium 4.1 Chloride 107 Carbon Dioxide 31 BUN 17 Creatinine 0.66 Estimated GFR > 60.0 BUN/Creatinine Ratio 25.8 H Glucose 119 H Calcium 8.5 Magnesium 2.4 H PFSH Medical History Acid reflux Depression History of suicide attempt Surgical History H/O knee surgery Status post right knee replacement Family History Other Adopted Social History household members: spouse Smoking Status: Former smoker alcohol intake: former Assessment & Plan Assessment & Plan narrative: Lona Block is a 64-year-old female with a past medical history significant for depression, GERD, and osteoporosis with previous right knee replacement who presented to the ED after ground level fall with severe right hip pain. 1. Acute pathological right hip fracture, present on admission. Active. -Patient presented after ground level fall with severe right hip pain. -Right hip x-ray demonstrated right proximal femur fracture. -Consulted orthopedic surgery, Dr. Brown, who performed ORIF of right hip fracture with intramedullary nail and screw fixation. Continue postoperative management, pain control and VTE prophylaxis per orthopedic surgery. -Continue enoxaparin 40 mg daily for VTE prophylaxis and plan to transition to ASA on discharge. -Continue pain control with acetaminophen 975 mg 3 times daily and oxycodone 5-10 mg every 3 hours as needed for moderate to severe pain and hydromorphone 0.5 mg every 1 hour as needed for severe breakthrough pain. -Continue physical and occupational therapy evaluation and treatment. -Continue calcium and vitamin D3 supplementation. Patient will need to be treated for osteoporosis outpatient per PCP or ortho. 2. Acute blood loss anemia, not present on admission. Active. -Initial hemoglobin 12.6. Hemoglobin trended down to 9.9 as anticipated with ORIF. No signs of active bleeding. Transfusion goal hemoglobin < 7.0. -Could consider starting iron supplementation if continues to drop. -Continue monitor H&H daily. 3. Prediabetes, chronic, present on admission. Stable. -Hemoglobin A1c 6.1% indicative of prediabetes. -Discontinued ACHS blood glucose checks and low-dose correctional scale insulin as patient's blood glucose has not been significantly elevated. Consider starting metformin outpatient for optimal glycemic control. -Recommended lifestyle modification including: diet and exercise which was discussed in detail. -Consulted dietitian and we appreciate her time and recommendations. 4. GERD, chronic, present on admission. Stable. -Continue equivalent of home PPI with pantoprazole 20 mg daily. 5. Depression, chronic, present on admission. Stable. -Continue home duloxetine 60 mg daily and trazodone 150 mg daily bedtime. 6. Obesity, chronic, present on admission. Stable. -BMI 35.7. -Consulted dietitian and we appreciate her time and recommendations. -Continue physical and occupational therapy evaluation and treatment as above. Code status: Full code, surrogate decision maker is designated as patient's spouse Garrett Loweod VTE prophylaxis: Enoxaparin, SCDs Disposition patient likely to discharge to intermediate facility for continued rehabilitation the next 1-2 days pending insurance authorization. Quality VTE Deep Vein Thrombosis/Pulmonary Embolism Present on Admission: No
--- NOTE | 2020-05-10 11:58 | PT.IPTN ---
Current Diagnoses Displaced subtrochanteric fracture of right femur, initial encounter for closed fracture (05/08/20) Surgery Performed Operation Date: 05/08/20 14:45 Actual Procedures p IM Nail Hip Fx(Right) - Mike Marcos MD Physical Therapy Treatment Note M2 PT-IP Current Condition Start: 05/09/20 08:40 Freq: NEEDED Status: Active Protocol: Document 05/09/20 11:14 HH (Rec: 05/09/20 11:44 [id number]) Physical Therapy Current Condition Current Condition Evaluation Date 05/09/20 Treatment Diagnosis R ORIF, difficulty in walking, weakness Onset Date 05/08/20 Weight Bearing Status Weight Bearing Status Partial Weight Bearing Allowed Weight Bearing Amount (enter % 50% weight-bearing on the or #) (%) right leg. M3 PT-IP Subjective Start: 05/09/20 08:40 Freq: NEEDED Status: Active Protocol: Document 05/10/20 10:58 LJ (Rec: 05/10/20 11:57 LJ [id number]) Subjective Physical Therapy Visit Type Type Treatment Note Visit Start Time 10:58 Visit Stop Time 11:21 Total Visit Minutes 23 Number of INFORMATION ARCHITECT Visits 2 Physical Therapy Visit Comments Patient Comments The pain is worse today than yesterday. Therapy Pain Assessment Pain When Pain Assessed During Mobility Pain Present Pain Present Pain Reported M4 PT-IP Mobility and Gait Start: 05/09/20 08:40 Freq: NEEDED Status: Active Protocol: Document 05/10/20 10:58 LJ (Rec: 05/10/20 11:57 LJ [id number]) PT-Transfer Assessment Sit to and From Stand Sit to and from Stand Contact Guard Assistance,1 Person Assistance,Use of Upper Extremities Equipment Transfer Assistive Device Gait Belt,Front Wheeled Walker Orthotic/Prosthetic Devices or Brace: No Transfers Transfer Destination Chair Transfer Ability Level of Assist Contact Guard Assistance,1 Person Assistance,Use of Upper Extremities Comments Mobility Comments Pt in chair upon arrival. Pt stated it was very painful and all that she could do to go from the bed to the chair. Pt instructed to stand with FWW in front of chair and perform gentle weight shifting from LLE to RLE up to pain tolerance or 50% WB while standing erect and using core muscles and proper posture to assist in aligning shoulders over hips. Pt weight shifted x5 and attempted lifting RLE with a marching action but unable to lift foot fully off the floor. Pt requested to return to sitting. While sitting pt donned gait belt around right foot to assist with heel slides which she did 6 times using a cloth under her foot. She then attempted to perform seated marching and was able to do so several times with the aid of the belt around her foot and assisting with her right hand. Pt then performed seated glute and abdominal sets x10 each. Nursing entered room and pt was left in reclining position with call light and all needs within reach. Gait Assessment Comments Gait Comments see mobility section Stair Climbing Assessment Comments Stair Climbing Comments unable to assess yet M5 PT-IP Objective Assessments Start: 05/09/20 08:40 Freq: NEEDED Status: Active Protocol: Document 05/09/20 11:14 (Rec: 05/09/20 11:44 [id number]) Orientation Orientation/Cognition Level of Alertness Alert Orientation Name,Age,Birthday,Month,Date, Year,Day of Week,Place, Situation Language Function Ability No Deficits Noted Safety Awareness Understands Safety Issues Memory Description No Deficits Noted Gross Range of Motion Upper Extremity ROM Assessment Left Impaired Impairments L up to 100 degrees of shoulder abduction/ flexion d/ t pain Lower Extremity ROM Assessment Right Impaired Strength Upper Extremity Strength Assessment Left Impaired Shoulder 3+/5 Elbow 4-/5 Wrist 4-/5 Lower Extremity Strength Assessment Right Impaired Hip 3-/5 Knee 3-/5 Ankle 4+/5 Comments Strength Comments unable to complete LAQ on R no active hip flexion Coordination Assessment Gross Coordination Gross Coordination WNL Sensation Assessment Sensation Gross Sensation WNL M6 PT-IP Treatment Start: 05/09/20 08:40 Freq: NEEDED Status: Active Protocol: Document 05/10/20 10:58 SARAH (Rec: 05/10/20 11:57 LJ [id number]) Physical Therapy Treatment Exercises Exercises Ankle Pumps,Gluteal Sets,Quad Sets,Heel Slides Education Education Provided Weight Bearing Status M7 PT-IP Assessment and Plan Start: 05/09/20 08:40 Freq: NEEDED Status: Active Protocol: Document 05/10/20 10:58 SARAH (Rec: 05/10/20 11:57 LJ [id number]) PT Summary Assessment and Plan Potential Rehabilitation Potential Excellent Status of Condition at Evaluation Stable Summary Impairments Pain,ROM,Strength,Balance,Bed Mobility,Transfers,Gait, Activity Tolerance Progress Towards Goals Progressing Toward Goals,Slow Progress due to Pain,Slow Progress due to Activity Tolerance Assessment Summary Pt experinecing increased pain even after receiving medication ~1 hour prior to PT . After she performed a couple weight shifts onto right side with proper posture she stated that it wasn't as painful as she thought. She fatigued and began shaking after standing for several minutes and returned to seating where she was able to position herself. Goals Bed Mobility Goal Standby Assistance Transfer Goal Contact Guard Assistance,Front Wheeled Walker Gait Goal Contact Guard Assistance,Front Wheel Walker Gait Distance 20 Days to Meet Goals 10 Frequency of Treatment Frequency Of Treatment Twice a Day Treatment Plan Physical Therapy Treatment Plan Bed Mobility Training,Transfer Training,Gait Training, Therapeutic Exercise,Balance Retraining,Post Op Education, Discharge Planning,Hot or Cold Pack,Neuromuscular Re-ed Other Recommendations and Next Treatment ther ex, bed mobility, Focus transfer training as george BSC transfer gait training if possible Recommendations To Nursing Amount of Assist Needed 1 Person Assist Discharge Recommendations PT Discharge Recommendations SNF Rehab Equipment Needed for Home Before BSC, shower chair, baseball club manager, Discharge grab bars in shower and toiler , raised toilet seat if go home, B rail for steps Transportation Needs at Discharge Wheelchair/Cabulance
--- NOTE | 2020-05-10 12:42 | DIET.PN ---
Dietary Progress Note Assessment: Ms. Block is a 64-year-old female presented to the emergency room with a chief complaint of recent left knee and shoulder pain after a ground level fall with severe right-sided hip pain. Patient has a history of former smoker x 40 yrs, with a past medical history depression, acid reflux and right knee replacement in 2018. She and her spousej sold their home in December and have been living in travel RV. She reports during the last several months they have been traveling and eating out often. She endorses poor food choices during that time and minimal physical activity. She was recently diagnosed with pre-diabetes. HT: 62in WT: 195lb UBW: BMI: 35.7 Labs: A1c: 6.1 Glucose: 139, 146, 119 AST: 57 ALT: 76 MNA: 13 Brock: 19,21 Nutrition Diagnosis: Altered nutrition related laboratory values r/t endocrine dysfunction aeb increased plasma glucose and A1c, estimated intake of foods high in carbohydrates and overall calories. Interventions: 1. Discussed physiology of diabetes and short/mcc complications. 2. Discussed carb consistent diet for glucose and weight management. Discussed recommended servings of carbs for meals and snacks for glucose control. Handouts provided. 3. Discussed importance of exercise for glucose control and weight maintenance. Pt agreeable. 4. Provided information on [facility] Education Program. Diet Order: General EER: 1800 radha @ 20cal/kg for weight loss; 88-105 g pro (1-1.2g/kg) Monitoring/Evaluations: diet compliance; labs Note: Recommend CCD 3.
--- NOTE | 2020-05-10 14:32 | PT.IPTN ---
Current Diagnoses Displaced subtrochanteric fracture of right femur, initial encounter for closed fracture (05/08/20) Surgery Performed Operation Date: 05/08/20 14:45 Actual Procedures p IM Nail Hip Fx(Right) - Mike Marcos MD Physical Therapy Treatment Note M2 PT-IP Current Condition Start: 05/09/20 08:40 Freq: NEEDED Status: Active Protocol: Document 05/09/20 11:14 HH (Rec: 05/09/20 11:44 [email or web address]) Physical Therapy Current Condition Current Condition Evaluation Date 05/09/20 Treatment Diagnosis R ORIF, difficulty in walking, weakness Onset Date 05/08/20 Weight Bearing Status Weight Bearing Status Partial Weight Bearing Allowed Weight Bearing Amount (enter % 50% weight-bearing on the or #) (%) right leg. M3 PT-IP Subjective Start: 05/09/20 08:40 Freq: NEEDED Status: Active Protocol: Document 05/10/20 13:24 LJ (Rec: 05/10/20 14:32 LJ [id number]) Subjective Physical Therapy Visit Type Type Treatment Note Visit Start Time 13:24 Visit Stop Time 14:02 Total Visit Minutes 32 Number of HARPSICHORD MAKER Visits 3 Physical Therapy Visit Comments Patient Comments Needs to use the BSC and wants to get back in bed Therapy Pain Assessment Pain When Pain Assessed During Mobility Pain Present Pain Present Pain Reported M4 PT-IP Mobility and Gait Start: 05/09/20 08:40 Freq: NEEDED Status: Active Protocol: Document 05/10/20 13:24 LJ (Rec: 05/10/20 14:32 LJ [id number]) PT-Transfer Assessment Sit to and From Stand Sit to and from Stand Standby Assistance,Contact Guard Assistance,1 Person Assistance,Use of Upper Extremities Equipment Transfer Assistive Device Gait Belt,Front Wheeled Walker Orthotic/Prosthetic Devices or Brace: No Transfers Transfer Destination Bed,Bedside Commode Transfer Ability Level of Assist Standby Assistance,Contact Guard Assistance,1 Person Assistance,Use of Upper Extremities Comments Mobility Comments Pt in chair upon arrival stating she needs to use the BSC and would like to get into bed. BSC put on right side of chair and pt stood CGA from chair and shuffled 2 feet to equine vet front of BSC. Pt voided, did pericare on herself then stood pushing off the BSC SBA. Pt stood with partial weight bearing on RLE while BSC was moved so she could move to the bed. Pt shuffled backwards to the bed 3 feet and positioned herself to sit in the middle of the bed. She required Hollie and cues to get into the bed where she positioned herself and scooted to the head of the bed SBA. During this treatment time she only voiced pain 2 times and was able to tolerate more activity than morning session. Pt also used gait belt and other leg to assist right leg into bed. She did not require any assist with LEs from HARPSICHORD MAKER. Pt was left in bed with all needs within reach. Gait Assessment Comments Gait Comments see mobility section Stair Climbing Assessment Comments Stair Climbing Comments unable to assess yet M5 PT-IP Objective Assessments Start: 05/09/20 08:40 Freq: NEEDED Status: Active Protocol: Document 05/09/20 11:14 (Rec: 05/09/20 11:44 [email or web address]) Orientation Orientation/Cognition Level of Alertness Alert Orientation Name,Age,Birthday,Month,Date, Year,Day of Week,Place, Situation Language Function Ability No Deficits Noted Safety Awareness Understands Safety Issues Memory Description No Deficits Noted Gross Range of Motion Upper Extremity ROM Assessment Left Impaired Impairments L up to 100 degrees of shoulder abduction/ flexion d/ t pain Lower Extremity ROM Assessment Right Impaired Strength Upper Extremity Strength Assessment Left Impaired Shoulder 3+/5 Elbow 4-/5 Wrist 4-/5 Lower Extremity Strength Assessment Right Impaired Hip 3-/5 Knee 3-/5 Ankle 4+/5 Comments Strength Comments unable to complete LAQ on R no active hip flexion Coordination Assessment Gross Coordination Gross Coordination WNL Sensation Assessment Sensation Gross Sensation WNL M6 PT-IP Treatment Start: 05/09/20 08:40 Freq: NEEDED Status: Active Protocol: Document 05/10/20 13:24 LJ (Rec: 05/10/20 14:32 LJ [id number]) Physical Therapy Treatment Exercises Exercises Ankle Pumps,Gluteal Sets,Quad Sets,Heel Slides M7 PT-IP Assessment and Plan Start: 05/09/20 08:40 Freq: NEEDED Status: Active Protocol: Document 05/10/20 13:24 LJ (Rec: 05/10/20 14:32 LJ [id number]) PT Summary Assessment and Plan Potential Rehabilitation Potential Excellent Status of Condition at Evaluation Stable Summary Impairments Pain,ROM,Strength,Balance,Bed Mobility,Transfers,Gait, Activity Tolerance Progress Towards Goals Progressing Toward Goals,Slow Progress due to Pain,Slow Progress due to Activity Tolerance Assessment Summary Pt improved with activity tolerance, bed mobility, and transfers. Able to scoot about 5 feet by pivoting right foot and UE use when stepping with left foot. Pain is better controlled also. Goals Bed Mobility Goal Standby Assistance Transfer Goal Contact Guard Assistance,Front Wheeled Walker Gait Goal Contact Guard Assistance,Front Wheel Walker Gait Distance 20 Days to Meet Goals 10 Frequency of Treatment Frequency Of Treatment Twice a Day Treatment Plan Physical Therapy Treatment Plan Bed Mobility Training,Transfer Training,Gait Training, Therapeutic Exercise,Balance Retraining,Post Op Education, Discharge Planning,Hot or Cold Pack,Neuromuscular Re-ed Recommendations To Nursing Amount of Assist Needed 1 Person Assist Discharge Recommendations PT Discharge Recommendations SNF Rehab Equipment Needed for Home Before BSC, shower chair, product sales representative, Discharge grab bars in shower and toiler , raised toilet seat if go home, B rail for steps Transportation Needs at Discharge Wheelchair/Cabulance
[2020-05-10] MEDS: MAGNESIUM HYDROXIDE 30 ML UDC PO (21:19)
[2020-05-10] MEDS: TRAZODONE 50 MG TABLET 150 MG PO (21:19)
[2020-05-11] MEDS: OXYCODONE IR 5 MG TABLET PO (02:57)
[2020-05-11] MEDS: OXYCODONE IR 10 MG TABLET PO ×2 (06:07→13:21)
[2020-05-11 07:20] VITALS: BP 145/73; PULSE 98; RESP 16; TEMP 36.3; O2SAT 94
--- NOTE | 2020-05-11 09:04 | P.PN_ITS ---
Subjective Subjective Date Patient Seen: 05/11/20 Time Patient Seen: 09:04 Interval history: She is doing well with physical therapy. Good pain control. Exam Vital Signs (past 8 hours): - 05/11/20 07:20 Temperature 97.4 F L Pulse Rate 98 H Respiratory Rate 16 Blood Pressure 145/73 H Pulse Oximetry 94 Oxygen Delivery Method Room Air Oxygen Flow Rate 0 Const Orientation: alert and oriented x3 Extrem Other: Right hip dressing CDI. Soft calf, 1+ pulse. Easily wiggles toes. Objective Labs Result Diagrams: 05/10/20 05:45 05/10/20 05:45 [facility] Medical History Acid reflux Depression History of suicide attempt Surgical History H/O knee surgery Status post right knee replacement Family History Other Adopted Social History household members: spouse Smoking Status: Former smoker alcohol intake: former Assessment & Plan Post-op Postoperative Procedures: Procedures Operation Date: 05/08/20 14:45 Actual Procedures Side Surgeon p IM Nail Hip Fx Right Mike Marcos MD She is doing well. Continue to mobilize with physical therapy. At this point we are just waiting on insurance authorization prior to [facility]. Follow up my office in 1.5 weeks. Quality VTE Deep Vein Thrombosis/Pulmonary Embolism Present on Admission: No
--- NOTE | 2020-05-11 09:18 | CM.DPC ---
Discharge Planning/Care Management CM Discharge Assessment Start: 05/08/20 09:52 Freq: Status: Active Protocol: Document 05/08/20 09:53 (Rec: 05/08/20 10:06 [id number]) Discharge Planning Assessment Advance Directives? No History Provided By Patient,Medical Record Prior Living Arrangements RV Household Members spouse Type of transporation used prior to Drives own vehicle admit Independent with ADL's Yes Is patient alert and oriented? Yes Caregiver for Another No Patient/Family Preference OP PT Therapy Barriers to Discharge Yes Comment Lives in an RV with , most likely will need residential. Discharge Plan [facility] Facility Transportation Arrangement Spouse Referrals Initiated [facility] Additional Comment Sent referral to [facility] Whiteboard Updated in Patient Room with Yes name and ext. # of Head Knitting Machine Fixer Review Status In Process Next Review Type Continued Stay Review 05/08/20 09:55 CM Disch. Assessment Note by Kenzie Melton Addendum entered by Kenzie Melton R.N. 05/08/20 12:02: Shu reviewed patient and stated, they should be able to accept. She mentioned that her [place] in this [place] should be affective on 05/11, but unclear if authorization will come from out of state, or here. Left a message with Coreen Pino, one of the [employer] supportive employment case manager, as one is also left with Andreian Landry as well, for some guidance regarding this authorization. Jacklyn at [facility] has also received authorization as well, as back up. Addendum entered by Kenzie Melton R.N. 05/08/20 10:56: Its noted that patient is [place] Medicare out of state. Went ahead and sent a second referral to [facility], as a back up. Sent over face sheet, H&P, and insurance information. Left a message with Andreina Landry at [employer] [facility], sample case porter, to inquire if they handle out of state quintero plans. Will await her response. Updated October at [facility], regarding patient's insurance as well. Original Note: DCP: Case received, EMR reviewed and met with patient. Introduced self and role. Was able to obtain information from patient regarding her baseline activity status prior to fall, as well as her current living situation. Was also able to discuss discharge planning. DCP assessment completed with information currently available. Patient is a 64 year old female who admitted early this morning to the [facility] of the hospitalist/orthopedic team. PCP: None at this time. Payer: confirmed: Medicare/[employer] [place] out of state. Patient came to the hospital via ambulance secondary to a ground level fall. Patient had quit smoking in December, but had decided to have a cigarette, became light headed, and fell. She ended up having a right displaced intratrochentric fracture. Patient has had a surgery consult, and the plan is for her to have surgery later today. Met with patient in her room. She was laying in bed, alert and oriented. Patient moved up here to [place], and lives in an RV with her . Patient is originally from [place], [place]. She currently has no primary care provider. It is noted from orthopedist that patient most likely will need skilled. Discussed briefly with patient. Gave her Medicare Choice List, she is aware that there is a local skilled rehab next to the hospital, she is not opposed to going. She has been independent at baseline, regarding her mobility. Called Shu at [facility] and gave her the referral. Shu mentioned that they do have female beds available, so should not be a problem. She will review. She is aware that patient is Medicare primary, as long as she is inpatient, she would qualify for skilled by 05/11. P: DCP to continue to follow. Patient will most likely need skilled. Shu will review today, and will need to ensure that patient does make inpatient status. Kenzie Melton RN/Weather Algorithm Scientist Initialized on 05/08/20 09:55 - END OF NOTE
--- NOTE | 2020-05-11 09:18 | CM.DPC ---
Addendum entered by Lesia Wilkerson LPN 05/11/20 13:28: Orders and PASSR now faxed to [facility]. Covid test results still pending. RN Hugh and Coordinator LINDA Lang are checking into this. Addendum entered by Lesia Wilkerson LPN 05/11/20 11:45: Spoke with Kristel Heart [phone]: Federico VARMA. She confirms she is reviewing case now and will confirm the INPT admission to as well as the snf auth. She confirms it is fine to d/c pt to [facility] today. Dr. Sidhu is alerted and will place orders. A new COVID-test will be needed prior to d/c. Lisette/Malinda is updated: plan is for w/c van at 1430 pending negative COVID test. Will update pt and RN caring for her. Original Note: DCP: continued. Picked up a vm left last evening by [facility] Angela. She reports that all should now be loaded in the system so that the episode of care is created and the snf auth process can begin. She stated that [facility] would have only limited UR staff on for half day today due to holiday, she was not certain anyone would be available to assist but that the pt appeared to meet snf criteria. She stated that she would be on again Thursday and could finalize the snf auth if no one at [facility] could assist today. Coreen stated she knew this would be a lag on [facility]'s part if no one was available to give the auth but noted we can only do what we can do. Have now called [facility]: their weekend line is no longer in service as of 04/30 and the vm refers to new snf placement line: [phone]. A vm is left now with info and request for snf auth as pt is ready for d/c to snf level care today, per Dr. Marcos. Dr. Sidhu is here as hospitalist and would do the final d/c. Will update her in Team Rounds. Malinda/caleb/Lisette is alerted to d/c expected either today or tomorrow, pending [facility] auth.
[2020-05-11] MEDS: polyethylene glycoL 3350 17 GM POWD.PACK PO (09:41)
[2020-05-11] MEDS: ACETAMINOPHEN 325 MG TABLET 975 MG PO ×2 (09:41→14:07)
[2020-05-11] MEDS: DOCUSATE 100 MG CAPSULE PO (09:41)
[2020-05-11] MEDS: DULOXETINE 30 MG CAPSULE 60 MG PO (09:41)
[2020-05-11] MEDS: PANTOPRAZOLE 20 MG TABLET PO (09:41)
[2020-05-11] MEDS: CALCIUM CARB/VIT D3 500/200 TABLET 1 EACH PO (09:41)
[2020-05-11] MEDS: ENOXAPARIN 40 MG/0.4 ML SYRINGE SUBCUT (09:42)
[2020-05-11] MEDS: SODIUM CHLORIDE 0.9% FLUSH 10 ML IV (09:43)
--- NOTE | 2020-05-11 11:23 | OT.IP.TRT ---
Current Diagnoses Displaced subtrochanteric fracture of right femur, initial encounter for closed fracture (05/08/20) Surgery Performed Operation Date: 05/08/20 14:45 Actual Procedures p IM Nail Hip Fx(Right) - Mike Marcos MD Occupational Therapy Treatment Note M2 OT-IP Current Condition Start: 05/09/20 12:13 Freq: Status: Active Protocol: Document 05/09/20 12:14 CGR (Rec: 05/09/20 12:39 CGR [id number]) Occupational Therapy Current Condition Current Condition Evaluation Date 05/09/20 Treatment Diagnosis R hip fx s/p sx Diagnosis Onset Date 05/08/20 Weight Bearing Status Weight Bearing Status Partial Weight Bearing Allowed Weight Bearing Amount (enter % 50% or #) (%) M3 OT- IP Subjective and Pain Start: 05/09/20 12:13 Freq: Status: Active Protocol: Document 05/11/20 12:28 CGR (Rec: 05/11/20 12:52 CGR [id number]) OT- Subjective Occupational Therapy Visit Type Type Progress Note Visit Start Time 11:00 Visit Stop Time 11:23 Total Visit Minutes 23 Notes Planned with P.T. for OT to get pt up to chair. OT Pain Assessment Pain When Pain Assessed During Mobility Pain Present Pain Present Pain Reported Location Left Shoulder Scale Used did not rate but states pain Management Techniques Distraction,Modification of Treatment,Re-positioning Right Hip Scale Used did not rate but states pain Management Techniques Distraction,Modification of Treatment,Re-positioning M4 OT- IP ADL's Start: 05/09/20 12:13 Freq: Status: Active Protocol: Document 05/11/20 12:28 CGR (Rec: 05/11/20 12:52 CGR [id number]) OT [id number] Comments OT Self-Feeding Comments Not meal time OT ADL-Grooming General Evaluation Grooming Ability Standby Assistance,Maximum Assistance Areas Needing Assistance Retrieving/Set-up of Grooming Items,Combing/Brushing Hair, Face Washing Comments OT Grooming Comments SBA for washing face and max a for brushing and braiding hair per pt request. OT ADL-Oral Care General Eval Oral Care Ability Standby Assistance Areas of Assistance Brushing Teeth Comments Oral Care Comments seated in chair. OT ADL-Dressing General Eval Lower Body Dressing Ability Total Assistance Areas Needing Assistance Socks OT ADL-Toileting Comments OT Toileting Comments Not performed OT ADL-Bathing Comments OT Bathing Comments not performed M5 OT- IP IADL's Start: 05/09/20 12:13 Freq: Status: Active Protocol: Document 05/09/20 12:14 CGR (Rec: 05/09/20 12:39 CGR [id number]) OT-Instrumental Activities of Daily Living Deficits IADL Deficits Identified No Deficits Home Safety Awareness Awareness of Need for Assistance at Home Good Awareness Ability to Problem Solve Emergency Able to Problem Solve Situations Medication Management Medication Management No Deficits Identified Money Management Money Management No Deficits Identified Meal Preparation Meal Preparation Caregiver Provides Assist Probation Manager Probation Manager Caregiver Provides Assist Driving Driving Comments 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 OT- IP Functional Cognition Start: 05/09/20 12:13 Freq: Status: Active Protocol: Document 05/09/20 12:14 CGR (Rec: 05/09/20 12:39 CGR [id number]) Cognitive Factors Limiting Selfcare Function Cognitive Ability Level of Alertness Alert Patient Orientation Name,Age,Birthday,Month,Date, Year,Day of Week,Place, Situation Attention Span Ability Capable of Focused Attention, Capable of Sustained Attention Ability to Follow Commands Able to Follow Multi-Step Commands Memory Description No Deficits Noted Safety Awareness No Deficits Noted Problem Solving Ability No deficits Noted OT- Vision and Hearing OT- Hearing Assessment OT- Hearing Assessment WFL OT- Vision Assessment Visual Acuity Glasses All The Time Visual Attentiveness WFL Occular Pursuits WFL Visual Convergence WFL M7 OT- IP Mobility and Balance Start: 05/09/20 12:13 Freq: Status: Active Protocol: Document 05/11/20 12:28 CGR (Rec: 05/11/20 12:52 CGR [id number]) OT- Bed Mobility Assessment Rolling Type of Rolling Roll to Right Level of Assistance Minimal Assistance,Head of Bed Elevated,Bedrails Supine to Sit Supine to Sit Assist Minimal Assistance,Head of Bed Elevated,Bedrails Scooting Scooting to Edge of Bed Minimal Assistance,Head of Bed Elevated,Bedrails OT-Transfer Assessment Sit to and From Stand Sit to and from Stand Minimal Assistance Transfers Transfer Ability Minimal Assistance Technique Transfer Destination Bed,Chair Transfer Technique Stand Pivot Devices Transfer Assistive Devices Gait Belt,Front Wheeled Walker Comments Mobility Comments Pt needed assist and continues to need extra time for bed mobility. Pt was able to perform stand pivot with min a for verbal cues and hand placement. OT- Gait Assessment Comments Gait Ability Comments Not performed OT- Balance Assessment Sitting Balance and Reactions Static Sitting Balance Ability Good Dynamic Sitting Balance Ability Fair M8 OT- IP Objective Assessments Start: 05/09/20 12:13 Freq: Status: Active Protocol: Document 05/09/20 12:14 CGR (Rec: 05/09/20 12:39 CGR [id number]) OT Gross Range of Motion Upper Extremity Range of Motion Assessment Left Impaired ROM Impairments L shld with pain and 0-80 OT Strength Comments Strength Comments RUE grossly 4+/5, LUE grossly 4/5 OT- Coordination Assessment Upper Extremity Finger to Nose Test Within Functional Limits Finger Tapping Test Within Functional Limits OT-Muscle Tone Assessment Muscle Tone WNL Yes OT Sensation Assessment Edema Edema Absent M9 OT- IP Assessment and Plan Start: 05/09/20 12:13 Freq: Status: Active Protocol: Document 05/11/20 12:28 CGR (Rec: 05/11/20 12:52 CGR [id number]) OT Summary Assessment and Plan Potential Rehabilitation Potential Excellent Analytic Complexity at Evaluation Moderate Summary OT Impairments Pain,Range of Motion,Strength, Balance,Functional Mobility, Grooming,Dressing,Toileting, Bathing,Toilet Transfers, Shower Transfers,Activity Tolerance Progress Towards Goals Slow Progress due to Pain Assessment Summary Pt presents as a moderate complexity evaluation s/p admit for GLF and R hip fx. Pt underwent R hip ORIF and is now 50% WB to the RLE. Additionally, pt found to have small joint effusion in the L knee and severe arthritis in the L shld. Pt assisted with bed mobility using hob and bedrails with min a. Pt agreed to transfer to chair and perform ADLs seated in chair. Pt will still benefit from SNF . Goals Grooming Goal Independent Dressing Goal Independent Toileting Goal Independent Bathing Goal Independent Toilet Transfer Goal Independent Shower Transfer Goal Independent Days to Meet Goals 20 Frequency of Treatment Frequency Of Treatment Once a Day Treatment Plan OT Treatment Plan ADL Training,Functional Mobility,Patient/Family Education,Discharge Planning Other Treatment Recommendations and Next Shower if able. Treatment Focus Discharge Recommendations OT Discharge Recommendations SNF Rehab Home Equipment Needs TBD Transportation Needs at Discharge Private Vehicle
--- NOTE | 2020-05-11 11:40 | PT.IPTN ---
Current Diagnoses Displaced subtrochanteric fracture of right femur, initial encounter for closed fracture (05/08/20) Surgery Performed Operation Date: 05/08/20 14:45 Actual Procedures p IM Nail Hip Fx(Right) - Mike Marcos MD Physical Therapy Treatment Note M2 PT-IP Current Condition Start: 05/09/20 08:40 Freq: NEEDED Status: Active Protocol: Document 05/09/20 11:14 HH (Rec: 05/09/20 11:44 [id number]) Physical Therapy Current Condition Current Condition Evaluation Date 05/09/20 Treatment Diagnosis R ORIF, difficulty in walking, weakness Onset Date 05/08/20 Weight Bearing Status Weight Bearing Status Partial Weight Bearing Allowed Weight Bearing Amount (enter % 50% weight-bearing on the or #) (%) right leg. M3 PT-IP Subjective Start: 05/09/20 08:40 Freq: NEEDED Status: Active Protocol: Document 05/11/20 11:21 CLB (Rec: 05/11/20 11:57 CLB [id number]) Subjective Physical Therapy Visit Type Type Treatment Note Visit Start Time 11:21 Visit Stop Time 11:40 Total Visit Minutes 19 Number of PERSONNEL AND PAYROLL TECHNICIAN Visits 4 Physical Therapy Visit Comments Patient Comments Pt willing to work with therapy. Therapy Pain Assessment Pain When Pain Assessed During Mobility Pain Present Pain Present Pain Reported Location Right Hip Intensity 6 Scale Used pt states 6-8 with standing. Pain Behaviors Facial Grimacing,Guarding, Wincing Pain Management Techniques Modification of Treatment, Timing of Activity with Medications M4 PT-IP Mobility and Gait Start: 05/09/20 08:40 Freq: NEEDED Status: Active Protocol: Document 05/11/20 11:21 CLB (Rec: 05/11/20 11:57 CLB [id number]) PT-Transfer Assessment Sit to and From Stand Sit to and from Stand Contact Guard Assistance,1 Person Assistance,Use of Upper Extremities Equipment Transfer Assistive Device Gait Belt,Front Wheeled Walker Orthotic/Prosthetic Devices or Brace: No Transfers Transfer Destination Chair Transfer Ability Level of Assist Contact Guard Assistance,Use of Upper Extremities Comments Mobility Comments Pt in chair upon arrival with OT and SENIOR FIREWALL ENGINEER present. Pt performed seated ther ex. Pt stood CGA with use of UE's then attempted to take step forward but was unable due to pain increaseing to 8/10. Pt then sat back in chair CGA. Pt then performed AP's, seated knee flx/ext. Pt left in chair with all needs within reach and RN informed of pt progress . Gait Assessment Comments Gait Comments unable at this time. Stair Climbing Assessment Comments Stair Climbing Comments unable to assess yet M5 PT-IP Objective Assessments Start: 05/09/20 08:40 Freq: NEEDED Status: Active Protocol: Document 05/09/20 11:14 (Rec: 05/09/20 11:44 [id number]) Orientation Orientation/Cognition Level of Alertness Alert Orientation Name,Age,Birthday,Month,Date, Year,Day of Week,Place, Situation Language Function Ability No Deficits Noted Safety Awareness Understands Safety Issues Memory Description No Deficits Noted Gross Range of Motion Upper Extremity ROM Assessment Left Impaired Impairments L up to 100 degrees of shoulder abduction/ flexion d/ t pain Lower Extremity ROM Assessment Right Impaired Strength Upper Extremity Strength Assessment Left Impaired Shoulder 3+/5 Elbow 4-/5 Wrist 4-/5 Lower Extremity Strength Assessment Right Impaired Hip 3-/5 Knee 3-/5 Ankle 4+/5 Comments Strength Comments unable to complete LAQ on R no active hip flexion Coordination Assessment Gross Coordination Gross Coordination WNL Sensation Assessment Sensation Gross Sensation WNL M6 PT-IP Treatment Start: 05/09/20 08:40 Freq: NEEDED Status: Active Protocol: Document 05/11/20 11:21 CLB (Rec: 05/11/20 11:57 CLB [id number]) Physical Therapy Treatment Exercises Exercises Ankle Pumps,Gluteal Sets,Quad Sets,Heel Slides,Seated Knee Flexion/Extension Education Education Provided Weight Bearing Status M7 PT-IP Assessment and Plan Start: 05/09/20 08:40 Freq: NEEDED Status: Active Protocol: Document 05/11/20 11:21 CLB (Rec: 05/11/20 11:57 CLB [id number]) PT Summary Assessment and Plan Potential Rehabilitation Potential Excellent Status of Condition at Evaluation Stable Summary Impairments Pain,ROM,Strength,Balance,Bed Mobility,Transfers,Gait, Activity Tolerance Progress Towards Goals Slow Progress due to Pain,Slow Progress due to Activity Tolerance Assessment Summary Pt in chair was able to stand CGA with good pain controll and able to do seated ther ex but was unable to ambulate due to increased pain with partial WB. Pt will benefit from SNF rehab to increase activity tolerance and strength for functional mobility. Goals Bed Mobility Goal Standby Assistance Transfer Goal Contact Guard Assistance,Front Wheeled Walker Gait Goal Contact Guard Assistance,Front Wheel Walker Gait Distance 20 Days to Meet Goals 10 Frequency of Treatment Frequency Of Treatment Twice a Day Treatment Plan Physical Therapy Treatment Plan Bed Mobility Training,Transfer Training,Gait Training, Therapeutic Exercise,Balance Retraining,Post Op Education, Discharge Planning,Hot or Cold Pack,Neuromuscular Re-ed Other Recommendations and Next Treatment ther ex, gait as able and bed Focus mobility and transfer. Recommendations To Nursing Amount of Assist Needed 1 Person Assist Discharge Recommendations PT Discharge Recommendations SNF Rehab Equipment Needed for Home Before BSC, shower chair, implementation technician, Discharge grab bars in shower and toiler , raised toilet seat if go home, B rail for steps Transportation Needs at Discharge Wheelchair/Cabulance
--- NOTE | 2020-05-11 11:53 | P.DS_ITS ---
History of Present Illness History of Present Illness Date Patient Seen: 05/11/20 Chief complaint: GLF Narrative: Narrative: Patient is a 64-year-old female Monika Block presented to the emergency room with a chief complaint of recent left knee pain left shoulder pain presents after a ground level fall with severe right-sided hip pain. Patient had quit smoking in December of 2019, but decided today to step out of her RV to have a cigarette, she became lightheaded after the cigarette and suffered a ground level fall landing on the left hip, denies hitting her head and complains of no other acute injuries. Patient has a history of former smoker x 40 yrs, with a past medical history depression, acid reflux and right knee replacement in 2018 she has been doing well up until early Apr 2020. When she presented to ED on 04/27/2020 for complaints of left medial knee pain/swelling with weight-bearing and lateral knee pain when she flexes affected leg for 6 days. In addition reported nontraumatic left posterior shoulder pain as well causing limited active range of motion due to discomfort. She initially injured left shoulder 20 years ago after she landed on shoulder during football game. Patient has been pulling herself up and down the stairs in traveling RV which she contributes the shoulder pain. Patient reports no improvement with taking meloxicam. She and her spouse moved from [facility] to [place] in December 2019 and is currently living in travel RV. Patient has [employer] health insurance from [place] and is waiting to switch insurance to [facility] on and had requested some pain medication on 04/27/2020 ED visit to help with pain until next year so that she could follow up with new primary care physician and referrals to specialty providers. Patient denies at the time of the fall and on current exam chest pain, irregular, or racing heartbeat, dyspnea, diaphoresis, changes in vision, or dizziness. Recent illness nausea,vomiting, diarrhea or abdominal pain. She also denies numbness, tingling, abnormal balance, or coordination, frequent falls, changes or difficulty with bowel, bladder or motor skills. Reports intact sensation distally and mobility to her fingers. In the ED patient was found to have a right hip closed inter trochanter f racture. Dr. ramirez orthopedic surgeon was contacted and requested patient be admitted by hospitalist service for surgery today. Discharge Providers Provider Date of admission: 05/08/20 04:08 Discharge Date: 05/11/20 Consults: 05/08/20 04:56 Consult to Discharge Planning Routine Comment: Consult to Occupational Therapy Evaluate & Treat Comment: hip fx Physician Instructions: Evaluate and treat Consult to Physical Therapy Evaluate & Treat Comment: hip fx Physician Instructions: Evaluate and Treat 05/08/20 07:04 Consult to Orthopedic Surgery Routine Comment: Consulting Provider: Mike Marcos Reason for consultation: R hip fx Has provider been notified: Yes 05/08/20 18:40 Consult to Discharge Planning Routine Comment: Consult to Physical Therapy Evaluate & Treat Comment: Physician Instructions: Evaluate and Treat Consult to Respiratory Therapy Evaluate & Treat Comment: Physician Instructions: Evaluate and treat 05/09/20 23:11 Consult to Dietitian, Adult Urgent Comment: Reason For Exam: Obesity, prediabetes, osteoporosis Discharge provider: Karissa Sidhu MD Summary Hospital Course Discharge Diagnosis: 1. Right intertrochanteric hip fracture 2. Osteoporosis 3. Status post ORIF with intramedullary nail on the right 4. GERD 5. Left knee and left shoulder pain 6. Pre diabetes, hemoglobin A1c 6.1 7 obesity 8. Acute blood loss anemia transfusion not required Hospital Course: Patient was admitted to the hospital having sustained a ground level fall. She was found to have a right intertrochanteric fracture. Patient was taken to the operating room and underwent ORIF of the right with an intramedullary nail placed. The patient was seen by PT and OT. She continues to have some pain with weight-bearing. She did have a drop in her hemoglobin from 12-9. She did not require blood transfusion but was felt to have acute blood loss anemia. The patient tolerated physical therapy and occupational therapy. She had uneventful postoperative course. She was deemed appropriate for discharge and arrangements were made for [facility]. On the day of discharge she had no specific complaints. Patient has not had a bowel movement but feels that 1 is eminent. Status at Discharge Cognitive/behavioral status at discharge: oriented Functional status at discharge: uses cane/walker Overall status at discharge: patient is not back to baseline Time Spent with Patient Time spent: Less than 30 minutes Time spent discussing smoking cessation with patient: 3 to 10 minutes Exam Vital Signs (past 8 hours): - 05/11/20 07:20 Temperature 97.4 F L Pulse Rate 98 H Respiratory Rate 16 Blood Pressure 145/73 H Pulse Oximetry 94 Oxygen Delivery Method Room Air Oxygen Flow Rate 0 Narrative Exam Narrative: Pleasant female resting comfortably in no obvious distress Lungs: Clear to auscultation Cardiac exam: Regular rate and rhythm normal S1-S2 Abdomen soft and nontender Extremities: Right hip with dressing in place, no exudate no serosanguineous drainage noted Objective Labs Result Diagrams: 05/10/20 05:45 05/10/20 05:45 PFS Medical History Acid reflux Depression History of suicide attempt Surgical History H/O knee surgery Status post right knee replacement Family History Other Adopted Social History household members: spouse Smoking Status: Former smoker alcohol intake: former Discharge Assessment & Plan Assessment and Plan Assessment: 1. Status post right ORIF with intramedullary nail placement 2. Right intertrochanteric hip fracture most likely related to underlying osteoporosis 3. GERD 4. Pre diabetes 5. Obesity Acute blood loss anemia Plan of Treatment: Medications as outlined Discharged to [facility] for ongoing rehabilitation Discharge Plan Discharge Plan Patient Disposition: SNF Transfer to: [facility] Consult as needed: Dental, Hearing, Mental health, Podiatry and Vision Discharge orders & Medications Prescriptions: New acetaminophen 325 mg Tablet 975 mg PO TID PRN (Reason: pain) 30 Days Qty: 30 RF: 0 magnesium hydroxide [Milk of Magnesia] 400 mg/5 mL Suspension 30 ml PO BEDTIME Qty: 30 RF: 0 bisacodyl 10 mg Suppository 10 mg AR PRN PRN (Reason: Constipation) Qty: 30 RF: 0 docusate sodium [DOK] 100 mg Capsule 100 mg PO BID Qty: 30 RF: 0 calcium carbonate-vitamin D3 [Oyster Shell Calcium-Vit D3] 500 mg(1,250mg) - 200 unit Tablet 1 ea PO BIDWM Qty: 30 RF: 0 oxycodone 10 mg Tablet 10 mg PO Q3HR PRN (Reason: Pain, Severe (7-10)) Qty: 30 RF: 0 aspirin 81 mg tablet,delayed release (DR/EC) 81 mg PO BID Qty: 60 RF: 0 Continued trazodone 150 mg PO QPM RF: 0 omeprazole magnesium [Acid Pillowcase Sewer (omeprazole)] 20 mg Capsule,Delayed Relea se(Dr/Ec) 20 mg PO DAILY RF: 0 lysine 1,000 mg Tablet 1,000 mg PO DAILY RF: 0 duloxetine 60 mg Capsule,Delayed Release(Dr/Ec) 60 mg PO DAILY RF: 0 Discontinued meloxicam RF: 0 Follow up/Referrals: Mike Marcos MD [Physician] - (2 weeks post operative check) Discharge Health Status Care Plan Goals: 50% weight bearing status on right hip Multidrug resistant organism: No MDRO Diet/Activity/Treatments Diet: Diet as Tolerated Liquid consistency: Normal/Thin Food texture: Regular Skin/Wound/Dressing Care Report to your healthcare provider any signs of infection, such as:: chills, fever Special Rehabilitation Services Reason for rehabilitation: Post-operative therapy Rehab type: Physical therapy and Occupational therapy Visit Report/Discharge Packet Instructions: DI for Hip Fracture, How to Prevent Falls, DI for Prescription Opioid Use Stand Alone Forms: Surgery Discharge Quality VTE Deep Vein Thrombosis/Pulmonary Embolism Present on Admission: No
--- NOTE | 2020-05-11 13:19 | PC.NURSE ---
Day shift: Report given to Annamaria VEGA RN at approx 1315.
[2020-05-11 13:43] LABS: COVID19 -Nasal RAPID Negative (Negative)
--- NOTE | 2020-05-11 14:48 | PC.NURSE ---
Day shift: Pt left unit at approx 1445. She went to [facility] w/ transport person. They have the SNF packet. Pt has all personal belongings and her scrips in packet. She has her meds from pharmacy as well. Dressing remains CDI. CMS intact. Voiding well and denies any constipation.
== END 2020-05-11 14:52 | DRG 481 ==
LOC: ED 04:07 → AC 04:09
PROVIDERS: Internal Medicine; Orthopaedic Surgery; Admitting Provider Nurse Practitioner Family; Emergency Provider Emergency Medicine; Referring Provider Emergency Medicine; Visit Provider Nurse Practitioner Family
PROC: 0QSB06Z Reposition Right Lower Femur with Intramedullary Internal Fixation Device, Open Approach (ICD-10-PCS; CPT 27245; principal; 2020-05-08 14:45)
DX: M84.451A Pathological fracture, right femur, initial encounter for fracture (principal); D62 Acute posthemorrhagic anemia; F17.210 Nicotine dependence, cigarettes, uncomplicated; F32.9 Major depressive disorder, single episode, unspecified; K21.9 Gastro-esophageal reflux disease without esophagitis; E66.9 Obesity, unspecified; Z68.35 Body mass index [BMI] 35.0-35.9, adult; Z20.828 Contact with and (suspected) exposure to other viral communicable diseases; R73.03 Prediabetes
CPT/HCPCS: 36415; 51701; 51705; 73502; 73560; 76000; 80048; 80053; 82962; 83036; 83735; 85025; 85610; 85730; 87635; 93005; 94760; 94762; 96361; 96374; 97110; 97116; 97162; 97166; 97530; 97535; 99284; J0690; J1100; J1170; J1650; J1885; J2250; J2405; J3010; J3360

== ENCOUNTER → 2020-05-22 09:57 | Outpatient (CLI) | payer MEDICARE, SELFPAY ==
[2020-05-08 04:27] VITALS: BMI 35.6
--- NOTE | 2020-05-22 | DI.RAD.S_ITS ---
PROCEDURE: XR HIP W PEL IF DONE RT 2V INDICATIONS: RIGHT HIP PAIN POST GLF TECHNIQUE: 3 views of the hip were acquired. COMPARISON: [facility], CR, XR HIP W PEL IF DONE RT 2V, 05/08/2020, 16:15. [facility], CR, XR HIP W PEL IF DONE RT 2V, 05/08/2020, 2:45. FINDINGS: Bones: No previously on identified fractures or dislocations. No suspicious bony lesions. The visualized pelvic ring appears intact. The long medullary toñito and dynamic hip screw on the right are again noted but there appears to have been axial migration of the dynamic hip screw to penetrate the superior articular surface of the femoral head and impinge against the articular margin of the acetabular roof. Soft tissues: No suspicious soft tissue calcifications or masses. IMPRESSION: Cephalad axial migration of the dynamic hip screw tip into the joint space at the right hip, as discussed above. The screw tip impinges into the articular surface of the acetabulum. Dictated by: Erik Kenny M.D. on 05/22/2020 at 10:58 Approved by: Erik Kenny M.D. on 05/22/2020 at 11:01
== END ==
PROVIDERS: Referring Provider Orthopaedic Surgery; Visit Provider Orthopaedic Surgery
DX: T84.228A Displacement of internal fixation device of other bones, initial encounter (principal); M25.551 Pain in right hip
CPT/HCPCS: 73502

== ENCOUNTER 2020-05-23 15:30 | Inpatient (IN) | payer OTHER, SELFPAY ==
[2020-05-08 04:27] VITALS: BMI 35.6
[2020-05-23] VITALS (15 sets, daily range): BP systolic 134–184; BP diastolic 63–100; PULSE 88–113; RESP 9–22; TEMP 36.1–37.2; O2SAT 92–100; BMI 34.7; BMI 33.8
--- NOTE | 2020-05-23 | DI.RAD.S_ITS ---
PROCEDURE: XR HIP W PEL IF DONE RT 2V INDICATIONS: right hip revision TECHNIQUE: AP pelvis with lateral view(s) of the left hip(s). COMPARISON: [facility], , XR HIP W PEL IF DONE RT 2V, 05/22/2020, 10:12. FINDINGS: Expected intraoperative alignment of intramedullary toñito and screw fixation of the proximal femur. Dictated by: Ramiro Lal M.D. on 05/23/2020 at 21:50 Approved by: Ramiro Lal M.D. on 05/23/2020 at 21:50
--- NOTE | 2020-05-23 16:58 | ED_ITS ---
HPI - Recheck/Abnormal Lab/Rx General Chief Complaint: Recheck/Abnormal Lab/Rx Stated Complaint: R hip hardware revision Time Seen by Provider: 05/23/20 15:30 Source: patient Mode of arrival: Wheelchair History of Present Illness HPI narrative: Patient is a 64-year-old female sent here for right hardware hip revision. She had a right intertrochanteric repair on 05/08/2020. During a postop visit today x-rays showed that is there was some hardware malfunction. She is scheduled for the OR at 6:30 a.m. [facility]. She was sent to the ER 1st.. She has right hip pain but no other complaints she has been NPO since 8:00 a.m. this morning Related Data Home Medications Medication Instructions Recorded Confirmed omeprazole magnesium [Acid [employer] Operator 20 mg PO DAILY 05/08/20 05/23/20 (omeprazole)] trazodone 150 mg PO QPM 05/08/20 05/23/20 duloxetine 60 mg PO DAILY 05/09/20 05/23/20 lysine 1,000 mg PO DAILY 05/09/20 05/23/20 Previous Rx's Medication Instructions Recorded acetaminophen 975 mg PO TID PRN 30 Days #30 tab 05/11/20 aspirin 81 mg PO BID #60 tab 05/11/20 bisacodyl 10 mg [place] PRN PRN #30 ea 05/11/20 calcium carbonate-vitamin D3 1 ea PO BIDWM #30 tab 05/11/20 [Oyster Shell Calcium-Vit D3] docusate sodium [DOK] 100 mg PO BID #30 cap 05/11/20 magnesium hydroxide [Milk of 30 ml PO BEDTIME #30 ml 05/11/20 Magnesia] oxycodone 10 mg PO Q3HR PRN #30 tab 05/11/20 Allergies Allergy/AdvReac Type Severity Reaction Status Date / Time Sulfa (Sulfonamide AdvReac Severe Vomiting Verified 05/23/20 18:36 Antibiotics) Review of Systems Review of Systems Narrative: GENERAL: Denies chills,fever HEENT: Denies throat pain RESPIRATORY: Denies dyspnea, cough, wheezing CARDIOVASCULAR: Denies chest pain, palpitations GASTROINTESTINAL: Denies nausea, vomiting MUSCULOSKELETAL: See HPI SKIN: No rash, no laceration, no pruritus NEUROLOGIC: Denies weakness, dizziness, headache, numbness 8 point review of systems is negative except for those stated above and HPI Patient History Medical History Acid reflux Depression History of suicide attempt Surgical History H/O knee surgery Status post right knee replacement Family History Other Adopted Social History household members: spouse Smoking Status: Former smoker alcohol intake: former Smoking Status: Former smoker Substance Use Type: does not use Exam Initial Vital Signs Initial Vital Signs: Vital Signs Temperature 97.9 F 05/23/20 16:29 Pulse Rate 101 H 05/23/20 16:29 Respiratory Rate 18 05/23/20 16:29 Blood Pressure 177/78 H 05/23/20 16:29 Pulse Oximetry 98 05/23/20 16:29 GENERAL: Well-appearing, well-nourished and in no acute distress. CARDIOVASCULAR: peripheral pulses in tact, cap refill <2 sec RESPIRATORY: No respiratory distress, speaks in full sentences without difficulty EXTREMITIES: Normal range of motion, no clubbing or edema. Neurovascularly intact Pain right hip. Bandage is placed no erythema no hematoma NEUROLOGICAL: Cranial nerves II through XII grossly intact. Normal gait and spe ech. SKIN: Warm, dry, no petechiae, no rashes or lesions. Course Orders Ordered: ED Orders 05/23/20 17:06 Complete Blood Count AUTO DIFF Stat Comprehensive Metabolic Panel Stat Discontinued Medications Morphine Sulfate (Morphine 4 Mg/Ml Inj) 4 mg IV NOW ONE Stop: 05/23/20 17:22 Last Admin: 05/23/20 17:57 Dose: 4 mg Documented by: VANCE Vital Signs Vital signs: Vital Signs - 8 hr 05/23/20 16:29 Temperature 97.9 F Pulse Rate 101 H Respiratory Rate 18 Blood Pressure 177/78 H Pulse Oximetry 98 MDM - Recheck/Abnormal Lab/Rx Lab Data Attestation: I reviewed the patient's lab results. Result diagrams: 05/23/20 17:06 05/23/20 17:06 Labs: Lab Results 05/23/20 05/23/20 Range/Units 17:06 17:06 WBC 8.4 (4.5-11.0) X10^3/uL RBC 3.77 L (4.0-5.2) X10^6/uL Hgb 10.7 L (12.0-16.0) g/dL Hct 32.5 L (36-46) % MCV 86.3 (80-100) fL MCH 28.3 (26-34) PG MCHC 32.8 (30-36) % RDW 13.8 (11.6-14.8) % Plt Count 558 H (150-400) X10^3/uL Neut % (Auto) 64.9 (50-75) % Lymph % (Auto) 25.8 (25-40) % [place] % (Auto) 7.2 (3-14) % Eos % (Auto) 1.3 L (2-4) % Baso % (Auto) 0.8 (0-2) % Neut # (Auto) 5400 (6501-8880) /uL Lymph # (Auto) 2200 (7020-3699) /uL [place] # (Auto) 600 (0-900) /uL Eos # (Auto) 100 (0-450) /uL Baso # (Auto) 100 (0-100) /uL Sodium 139 (137-145) mmol/L Potassium 3.8 (3.4-5.1) mmol/L Chloride 107 (98-107) mmol/L Carbon Dioxide 26 (22-32) mmol/L BUN 18 H (7-17) mg/dL Creatinine 0.83 (0.52-1.04) mg/dL Estimated GFR > 60.0 (>60) mL/min BUN/Creatinine Ratio 21.7 (6-22) Glucose 115 H (80-110) mg/dL Calcium 9.8 (8.4-10.2) mg/dL Total Bilirubin 0.6 (0.2-1.3) mg/dL AST 32 (14-36) IU/L ALT 48 H (<35) IU/L Alkaline Phosphatase 202 H (38-126) U/L Total Protein 8.0 (6.3-8.2) g/dL Albumin 4.0 (3.5-5.0) g/dL Globulin 4.0 (1.7-4.1) g/dL Albumin/Globulin Ratio 1.0 (1.0-2.8) [facility] Narrative Medical decision making narrative: Dr. ramirez except Discharge Plan Departure Patient Disposition: Admitted As Inpatient Clinical Impression: Closed intertrochanteric fracture of right hip Qualifiers: Encounter type: subsequent encounter Admit Date/Time: 05/23/20 17:08 Admit Provider: Mike Marcos
[2020-05-23 17:12] LABS: Add Manual Diff / Slide Review NO; Basophils Absolute Auto 100 /uL (0-100); Basophils Percent Auto 0.8 % (0-2); Eosinophils Absolute Auto 100 /uL (0-450); Eosinophils Percent Auto 1.3 % (2-4); Hematocrit 32.5 % (36-46); Hemoglobin 10.7 g/dL (12.0-16.0); Lymphocytes Absolute Auto 2200 /uL (1100-4500); Lymphocytes Percent Auto 25.8 % (25-40); Mean Corpuscular HGB Conc 32.8 % (30-36); Mean Corpuscular Hemoglobin 28.3 PG (26-34); Mean Corpuscular Volume 86.3 fL (80-100); Monocytes Absolute Auto 600 /uL (0-900); Monocytes Percent Auto 7.2 % (3-14); Neutrophils Absolute Auto 5400 /uL (1500-7000); Neutrophils Percent Auto 64.9 % (50-75); Platelet Count 558 X10^3/uL (150-400); Red Blood Cell Count 3.77 X10^6/uL (4.0-5.2); Red Cell Distribution Width 13.8 % (11.6-14.8); White Blood Cell Count 8.4 X10^3/uL (4.5-11.0)
[2020-05-23 17:30] LABS: Alanine Aminotransferase 48 IU/L (<35); Alkaline Phosphatase 202 U/L (38-126); Aspartate Aminotransferase 32 IU/L (14-36); BUN Creatinine Ratio 21.7 (6-22); Bilirubin Total 0.6 mg/dL (0.2-1.3); Blood Urea Nitrogen 18 mg/dL (7-17); Calcium 9.8 mg/dL (8.4-10.2); Carbon Dioxide 26 mmol/L (22-32); Chloride 107 mmol/L (98-107); Estimated Glomerular Filt Rate > 60.0 mL/min (>60); Glucose 115 mg/dL (80-110); HEMOLYSIS < 15 (0-50); Potassium 3.8 mmol/L (3.4-5.1); Sodium 139 mmol/L (137-145)
[2020-05-23] MEDS: MORPHINE 4 MG/ML INJ IV (17:57)
[2020-05-23 18:13] LABS: COVID19 -Nasal RAPID Negative (Negative)
--- NOTE | 2020-05-23 18:23 | PM.HP.1 ---
History of Present Illness History of Present Illness Date Patient Seen: 05/23/20 Time Patient Seen: 18:23 Date of Onset of Symptoms: 05/07/20 Chief complaint: R hip hardware revision Narrative: 64-year-old female with right hip fracture. She fell 2 weeks ago and underwent ORIF of the right hip with an IM nail and hip screw. She had done quite well postoperatively and went to [facility] for rehabilitation. She reports she has been having some more pain in the hip when she is up and walking. She had her 1st postop visit today and the x-rays showed that the hip fracture had shifted and the screw had penetrated up through the head of the hip. It was felt that she needed revision surgery. Patient History Medical History Acid reflux Depression History of suicide attempt Surgical History H/O knee surgery Status post right knee replacement Family & Social History Family History Other Adopted Social History: household members spouse Prior Living Arrangements RV Safety & Behavioral: Feels Safe in Current Yes Environment Been Physically Hurt or No Threatened By a Person Suicidal Ideation Description None Suicide Plan Description No Plan Tobacco & Substance use: Tobacco type cigarettes Smoking Status Former smoker alcohol intake former Substance Use Type does not use Meds Home Medications and Allergies Home Medications Medication Instructions Recorded Confirmed Type omeprazole magnesium [Acid Education Program Associate 20 mg PO DAILY 05/08/20 05/23/20 History (omeprazole)] trazodone 150 mg PO QPM 05/08/20 05/23/20 History duloxetine 60 mg PO DAILY 05/09/20 05/23/20 History lysine 1,000 mg PO DAILY 05/09/20 05/23/20 History acetaminophen 975 mg PO TID PRN 30 Days #30 tab 05/11/20 05/23/20 Rx aspirin 81 mg PO BID #60 tab 05/11/20 05/23/20 Rx bisacodyl 10 mg [place] PRN PRN #30 ea 05/11/20 05/23/20 Rx calcium carbonate-vitamin D3 1 ea PO BIDWM #30 tab 05/11/20 05/23/20 Rx [Oyster Shell Calcium-Vit D3] docusate sodium [DOK] 100 mg PO BID #30 cap 05/11/20 05/23/20 Rx magnesium hydroxide [Milk of 30 ml PO BEDTIME #30 ml 05/11/20 05/23/20 Rx Magnesia] oxycodone 10 mg PO Q3HR PRN #30 tab 05/11/20 05/23/20 Rx Allergies Allergy/AdvReac Type Severity Reaction Status Date / Time Sulfa (Sulfonamide Allergy Severe Vomiting Verified 05/23/20 16:32 Antibiotics) Review of Systems Constitutional Constitutional: Denies chills and Denies fever(s) Exam Vital Signs (past 8 hours): - 05/23/20 16:29 05/23/20 17:35 Temperature 97.9 F 97.9 F Pulse Rate 101 H 88 Respiratory Rate 18 18 Blood Pressure 177/78 H 135/67 Pulse Oximetry 98 100 Oxygen Delivery Method Room Air Const Orientation: alert and oriented x3 Resp Auscultation: clear to auscultation bilaterally Cardio Rate: regular rate Rhythm: regular rhythm Extrem Other: CDI. Soft calf. Easily wiggles toes. Pain with motion of the hip Objective Imaging Right hip x-rays: My impression: Taken yesterday at [facility] show penetration of the hip screw through the femoral head Labs Result Diagrams: 05/23/20 17:06 05/23/20 17:06 Labs: Laboratory Results - last 24 hr 05/23/20 05/23/20 05/23/20 17:06 17:06 17:37 WBC 8.4 RBC 3.77 L Hgb 10.7 L Hct 32.5 L MCV 86.3 MCH 28.3 MCHC 32.8 RDW 13.8 Plt Count 558 H Neut % (Auto) 64.9 Lymph % (Auto) 25.8 [place] % (Auto) 7.2 Eos % (Auto) 1.3 L Baso % (Auto) 0.8 Neut # (Auto) 5400 Lymph # (Auto) 2200 [place] # (Auto) 600 Eos # (Auto) 100 Baso # (Auto) 100 Sodium 139 Potassium 3.8 Chloride 107 Carbon Dioxide 26 BUN 18 H Creatinine 0.83 Estimated GFR > 60.0 BUN/Creatinine Ratio 21.7 Glucose 115 H Calcium 9.8 Total Bilirubin 0.6 AST 32 ALT 48 H Alkaline Phosphatase 202 H Total Protein 8.0 Albumin 4.0 Globulin 4.0 Albumin/Globulin Ratio 1.0 SARS-CoV-2 (PCR) Negative Assessment & Plan Assessment & Plan narrative: Partial collapse of an osteoporotic hip fracture now with penetration of the hardware into the hip joint. Plan is for revision. If this is stable at this point, I will just change out the hip screw. If this is not stable and continues to move then she will need to be changed out to a different intramedullary nail with 2 screws in different locations to try to prevent further collapse and penetration. Risks and benefits of surgery were again discussed including but not limited to medical risk with heart attack, stroke, DVT, PE, infection, bleeding, scarring, nonunion, further collapse, need for further surgery. COVID-19 COVID-19 status: Negative Result date/Date tested (Pos, Neg/Pending): 05/23/20 Quality VTE Deep Vein Thrombosis/Pulmonary Embolism Present on Admission: No
--- NOTE | 2020-05-23 18:26 | PC.NURSE ---
Patient off the floor for surgery
[2020-05-23] MEDS: LACTATED RINGERS 1,000 ML 42 ML IV (18:45)
[2020-05-23] MEDS: CEFAZOLIN 2 GM/100 ML FROZ.PIGGY IV ×2 (20:27→23:32)
--- NOTE | 2020-05-23 20:59 | SUR.OPER ---
Supine on padded [place] table with bilateral legs secured in padded positioning boots and suspended in positioning spars, operative leg in traction per surgeon. Head on one pillow. Arm on non-operative side secured on padded armboard <90 degrees abduction. Arm on operative side padded and resting across chest then secured with tape over sheet. Padded perineal post in place per surgeon.
--- NOTE | 2020-05-23 21:39 | PM.OP.1 ---
Operative Date/Time/Diagnoses Date of procedure: 05/23/20 Time of procedure: 21:39 Pre-op diagnosis: Right subtrochanteric hip fracture with displacement after ORIF Post-op diagnosis: same Procedure & Clinicians Procedure: Revision of right hip screw Same procedure as scheduled: Yes Indications: 64-year-old female who had an ORIF of a right subtrochanteric hip fracture 2 weeks ago. Her postoperative x-rays showed that the hip fracture had shifted and the hip screw had penetrated through the femoral head. It is felt that she would need revision. Risks and benefits of surgery discussed and appropriate consent obtained. Click Yes if Unassisted: Yes Anesthesia Type: General Operative Notes Findings: None Closure Type: primary Specimen(s): none sent Prosthetic devices, grafts, tissues, transplants, or devices: Lesa Natural nail switched to 80mm head screw Estimated Blood Loss (mL): 20 Procedure in detail: Patient brought to the operating room and intubated on the stretcher. She was transferred over to the Sara table. Attention was turned towards the well marked right hip. Time-out was performed. Preoperative antibiotics were given. The right hip and leg was prepped and draped in standard sterile fashion. We opened up her proximal incision as well as her hip screw incision. We bluntly dissected down through the scar and soft tissue. A seroma was released from the hip screw incision area. The wounds were irrigated. We then placed the flexible screwdriver down the proximal incision and into the top of the toñito under x-ray guidance. We loosened the locking screw. We then fed a guidewire under fluoroscopy up through the hip screw and then backed out the screw with the screwdriver. This was a 95 mm screw. I then manipulated the leg but the fracture did not appear to be moving at all. We then placed the guidewire back up the screw tunnel and placed a new 80 mm screw up and the femoral head. There was very good bony purchase. I tried pulling back and forth on the screw under fluoroscopy but it appeared well fixed in the bone. Since we had good purchase, I did not think we needed to change everything out to a different system. We then tightened down the locking screw and then backed it up a quarter turn so that if there was any further sliding compression the hip screw would back up with it instead of penetrating through the head. Complications: none Post-operative Condition: stable Disposition: PACU Plan for aftercare: Inpatient. Touchdown weight-bearing on the right hip.
[2020-05-23] MEDS: fentaNYL 100 MCG/2 ML INJ IV ×2 (21:58→22:06)
[2020-05-23] MEDS: OXYCODONE IR 5 MG TABLET PO (22:00)
--- NOTE | 2020-05-23 22:34 | SUR.PHASEI ---
Pt arrived to PACU, airway patent with oral airway, soon out and pt breathing on own. Pt c/o pain and anxiety I just can't relax. Pt medicated with fentanyl and oxycodone after applesauce tolerated. Pt's pain down to 4/10 and anxiety better er pt. Pt assisted to bed beckwith as she volunteered the last time she urinated was at 1500. Pt could not void, bladder scanned for 193mls. Amount verified by LINDA Dill as result could not be printed.
[2020-05-23] MEDS: LACTATED RINGERS 1,000 ML 125 ML IV (22:55)
--- NOTE | 2020-05-23 23:42 | SUR.PHASEI ---
Pt transported to room, left with LINDA Hercules in stable condition.
[2020-05-24] VITALS (9 sets, daily range): BP systolic 108–153; BP diastolic 55–88; PULSE 86–116; RESP 16–18; TEMP 36–36.6; O2SAT 96–100
--- NOTE | 2020-05-24 01:40 | PC.NURSE ---
Addendum entered by Kika Jimenez R.N. 05/24/20 05:19: Initially stated she was having no pain but then turned to use bedpan and now states pain is 5/10 so medicated with Oxycodone; declined ice pack. Addendum entered by Kika Jimenez R.N. 05/24/20 02:12: Complaining of 6/10 right hip pain so medicated with Oxycodone. Patient was able to urinate earlier on bedpan. Original Note: Patient returned from PACU just prior to shift change. Is alert and oriented. Breath sounds CTA with RA sat of 99%. HRR but tachy at 107 bpm. BP elevated at 153/86. Denies nausea. BT hypoactive; denies flatus. Reportedly not voided since 1500 but bladder scan in PACU revealed < 200cc in bladder. Is able to turn herself in bed. Gait not assessed; has order for TTWB. Dressings to right lateral hip/leg are CDI. PP weak but palpable; other CMS is intact. Wearing bilateral calf SCD's. Denies pain. Reports having fallen in past 3 months so fall risk score is high and bed alarm is activated.
[2020-05-24] MEDS: OXYCODONE IR 5 MG TABLET PO ×3 (02:10→14:51)
[2020-05-24] MEDS: TRAZODONE 50 MG TABLET 150 MG PO (02:49)
[2020-05-24 06:07] LABS: Hematocrit 32.1 % (36-46); Hemoglobin 10.3 g/dL (12.0-16.0)
[2020-05-24] MEDS: CEFAZOLIN 2 GM/100 ML FROZ.PIGGY IV (06:35)
--- NOTE | 2020-05-24 07:18 | P.PN_ITS ---
Subjective Subjective Date Patient Seen: 05/24/20 Time Patient Seen: 07:18 Interval history: She is doing well. Exam Vital Signs (past 8 hours): - 05/23/20 23:45 05/24/20 01:00 05/24/20 02:00 Temperature 97.0 F L 97.9 F 97.9 F Pulse Rate 101 H 99 H 99 H Respiratory Rate 18 18 18 Blood Pressure 154/95 H 146/88 H 134/77 Pulse Oximetry 97 98 97 05/24/20 05:00 Temperature 97.3 F L Pulse Rate 101 H Respiratory Rate 16 Blood Pressure 153/80 H Pulse Oximetry 100 Oxygen Delivery Method Room Air Oxygen Flow Rate 0 Const Orientation: alert and oriented x3 Back/Spine/Pelvis Other: CDI. Soft calf, easily wiggles toes. Comfortable logroll Objective Labs Result Diagrams: 05/24/20 05:50 05/23/20 17:06 Labs: Laboratory Results - last 24 hr 05/23/20 05/23/20 05/23/20 17:06 17:06 17:37 WBC 8.4 RBC 3.77 L Hgb 10.7 L Hct 32.5 L MCV 86.3 MCH 28.3 MCHC 32.8 RDW 13.8 Plt Count 558 H Neut % (Auto) 64.9 Lymph % (Auto) 25.8 [place] % (Auto) 7.2 Eos % (Auto) 1.3 L Baso % (Auto) 0.8 Neut # (Auto) 5400 Lymph # (Auto) 2200 [place] # (Auto) 600 Eos # (Auto) 100 Baso # (Auto) 100 Sodium 139 Potassium 3.8 Chloride 107 Carbon Dioxide 26 BUN 18 H Creatinine 0.83 Estimated GFR > 60.0 BUN/Creatinine Ratio 21.7 Glucose 115 H Calcium 9.8 Total Bilirubin 0.6 AST 32 ALT 48 H Alkaline Phosphatase 202 H Total Protein 8.0 Albumin 4.0 Globulin 4.0 Albumin/Globulin Ratio 1.0 SARS-CoV-2 (PCR) Negative 05/24/20 05:50 WBC RBC Hgb 10.3 L Hct 32.1 L MCV MCH MCHC RDW Plt Count Neut % (Auto) Lymph % (Auto) [place] % (Auto) Eos % (Auto) Baso % (Auto) Neut # (Auto) Lymph # (Auto) [place] # (Auto) Eos # (Auto) Baso # (Auto) Sodium Potassium Chloride Carbon Dioxide BUN Creatinine Estimated GFR BUN/Creatinine Ratio Glucose Calcium Total Bilirubin AST ALT Alkaline Phosphatase Total Protein Albumin Globulin Albumin/Globulin Ratio SARS-CoV-2 (PCR) PFSH Medical History Acid reflux Depression History of suicide attempt Surgical History H/O knee surgery Status post right knee replacement Family History Other Adopted Social History household members: spouse Smoking Status: Former smoker alcohol intake: former Assessment & Plan Post-op Postoperative Procedures: Procedures Operation Date: 05/23/20 18:00 Actual Procedures Side Surgeon p Revision hip Screw Right Mike Marcos MD She is doing well. Mobilize today with physical therapy. I have cut her back to touchdown weight-bearing status as I have allowed her new hip screw to slide and I do not want to over stress the subtrochanteric fracture pattern. Quality VTE Deep Vein Thrombosis/Pulmonary Embolism Present on Admission: No
[2020-05-24] MEDS: ASPIRIN EC 81 MG TABLET PO ×2 (08:57→20:08)
[2020-05-24] MEDS: DOCUSATE 100 MG CAPSULE PO ×2 (08:57→20:08)
[2020-05-24] MEDS: PANTOPRAZOLE 20 MG TABLET PO (08:57)
[2020-05-24] MEDS: DULOXETINE 30 MG CAPSULE 60 MG PO (08:57)
[2020-05-24] MEDS: ENOXAPARIN 30 MG/0.3 ML SYRINGE SUBCUT (08:58)
[2020-05-24] MEDS: CALCIUM CARB/VIT D3 500/200 TABLET 1 EACH PO ×2 (08:58→17:40)
[2020-05-24] MEDS: ACETAMINOPHEN 325 MG TABLET 975 MG PO (09:06)
[2020-05-24] MEDS: SODIUM CHLORIDE 0.9% FLUSH 10 ML IV ×2 (09:07→20:08)
--- NOTE | 2020-05-24 09:30 | PT.IIE ---
Current Diagnoses Displacement of internal fixation device of right femur, initial encounter (05/23/20) Surgery Performed Operation Date: 05/23/20 18:00 Actual Procedures p Revision hip Screw(Right) - Mike Marcos MD Surgical History (Last Reviewed 05/23/20 @ 18:46 by Jody Hayes DO) H/O knee surgery Status post right knee replacement Medical History (Last Reviewed 05/23/20 @ 18:46 by Jody Hayes DO) Acid reflux Depression History of suicide attempt Physical Therapy Inpatient Evaluation/Re-Eval M1 PT/OT-IP Prior Functional Status Start: 05/24/20 11:12 Freq: NEEDED Status: Active Protocol: Document 05/24/20 09:30 AB (Rec: 05/24/20 11:34 AB [id number]) Medical Review Prior Functional Status Medical History Reviewed Yes Communication able to make needs known Mobility and Gait pt stated that piror to first hip surgery, she was independent with all mobilities and ambulation without AD Prior Functional Level (Other details) pt s/p fall and sustained R hip fracture and underwent ORIF 05/08/20. pt came back and had R hip ORIF revision Social History Household Members spouse Living Arrangements RV Number of Floors (Floors) One Floor Number of Stairs To Enter/Railing? 4 steps with L rail ascending pt stated that a FWW will not fit in the RV Home Environment Standard Height Toilet,Walk in Shower Home Equipment Hand Held Shower M2 PT-IP Current Condition Start: 05/24/20 11:12 Freq: NEEDED Status: Active Protocol: Document 05/24/20 09:30 AB (Rec: 05/24/20 11:34 AB [id number]) Physical Therapy Current Condition Current Condition Evaluation Date 05/24/20 Treatment Diagnosis s/p R hip ORIF revision; difficulty in walking Onset Date 05/23/20 Weight Bearing Status Weight Bearing Status Touch Down Weight Bearing Allowed Weight Bearing Amount (enter % RLE TTWB or #) (%) M3 PT-IP Subjective Start: 05/24/20 11:12 Freq: NEEDED Status: Active Protocol: Document 05/24/20 09:30 AB (Rec: 05/24/20 11:34 AB [id number]) Subjective Physical Therapy Visit Type Type Initial Evaluation Visit Start Time 09:30 Visit Stop Time 10:04 Total Visit Minutes 34 Number of SHREDDED FILLER HOPPER FEEDER Visits 0 Physical Therapy Visit Comments Patient Comments pt is agreeable to do PT Therapy Pain Assessment Pain When Pain Assessed At Rest Pain Present Pain Present Pain Reported Location Right Hip Intensity 2 Scale Used Numeric (0 - 10) Pain Management Techniques Apply Cold,Distraction, Modification of Treatment,Re- positioning,Timing of Activity with Medications M4 PT-IP Mobility and Gait Start: 05/24/20 11:12 Freq: NEEDED Status: Active Protocol: Document 05/24/20 09:30 AB (Rec: 05/24/20 11:34 AB [id number]) PT-Bed Mobility Assessment Supine to Sit Supine to Sit Maximum Assistance,1 Person Assistance Scooting Scooting to Edge of Bed Minimal Assistance PT-Transfer Assessment Sit to and From Stand Sit to and from Stand Minimal Assistance,1 Person Assistance,Use of Upper Extremities Equipment Transfer Assistive Device Gait Belt,Front Wheeled Walker Orthotic/Prosthetic Devices or Brace: No Transfers Transfer Destination Chair Transfer Technique Stand Step Pivot Transfer Ability Level of Assist Minimal Assistance,1 Person Assistance,Use of Upper Extremities Comments Mobility Comments educated pt on weight bearing restriction on RLE. completed supine to sit max A and max cues. pt was able to sit on EOB SBA. completed sit to stand min A and cues. pt unable to maintain and gauge TTWB on RLE and instructed to do NWB for safety and pt able to maintain and completed stand pivot transfer to chair. pt refused to do ambulation but agreed to stay up on chair . positioned on chair. call light and table placed within reach. PT-Balance Assessment Sitting Balance and Reactions Static Sitting Balance Ability Good Dynamic Sitting Balance Ability Good Standing Balance and Reactions Static Standing Balance Ability Fair Dynamic Standing Balance Ability Fair Device Used FWW M5 PT-IP Objective Assessments Start: 05/24/20 11:12 Freq: NEEDED Status: Active Protocol: Document 05/24/20 09:30 AB (Rec: 05/24/20 11:34 AB [id number]) Orientation Orientation/Cognition Level of Alertness Alert Orientation Name,Place,Situation Safety Awareness Decreased Safety Awareness Memory Description Short Term Impaired Gross Range of Motion Lower Extremity ROM Assessment Within Functional Limits Strength Lower Extremity Strength Assessment Right Impaired Hip 3-/5 Knee 3+/5 Muscle Tone Muscle Tone WNL Yes M6 PT-IP Treatment Start: 05/24/20 11:12 Freq: NEEDED Status: Active Protocol: Document 05/24/20 09:30 AB (Rec: 05/24/20 11:34 AB [id number]) Physical Therapy Treatment Exercises Exercises Heel Slides Education Education Provided Weight Bearing Status,Safety M7 PT-IP Assessment and Plan Start: 05/24/20 11:12 Freq: NEEDED Status: Active Protocol: Document 05/24/20 09:30 AB (Rec: 05/24/20 11:34 AB [id number]) PT Summary Assessment and Plan Potential Rehabilitation Potential Good Status of Condition at Evaluation Stable Summary Impairments Pain,ROM,Strength,Balance, Coordination,Sensation,Tone, Cognition,Bed Mobility, Transfers,Gait,Activity Tolerance Assessment Summary pt requiring min to max A with mobility. unable to ambulate at this time. pt has weight bearing restriction on RLE and will limit functional mobility. pt will require SNF rehab to improve strength and independence. Goals Bed Mobility Goal Standby Assistance Transfer Goal Standby Assistance Gait Goal Minimal Assistance Gait Distance 25 Days to Meet Goals 5 Frequency of Treatment Frequency Of Treatment Twice a Day Treatment Plan Physical Therapy Treatment Plan Bed Mobility Training,Transfer Training,Gait Training, Therapeutic Exercise,Balance Retraining,Post Op Education, Discharge Planning,Hot or Cold Pack,Neuromuscular Re-ed, Coordination Retraining,Manual Therapy Recommendations To Nursing Amount of Assist Needed 1 Person Assist Discharge Recommendations PT Discharge Recommendations SNF Rehab Transportation Needs at Discharge Wheelchair/Cabulance
--- NOTE | 2020-05-24 13:44 | PT.IPTN ---
Current Diagnoses Displacement of internal fixation device of right femur, initial encounter (05/23/20) Surgery Performed Operation Date: 05/23/20 18:00 Actual Procedures p Revision hip Screw(Right) - Mike Marcos MD Physical Therapy Treatment Note M2 PT-IP Current Condition Start: 05/24/20 11:12 Freq: NEEDED Status: Active Protocol: Document 05/24/20 09:30 AB (Rec: 05/24/20 11:34 AB [id number]) Physical Therapy Current Condition Current Condition Evaluation Date 05/24/20 Treatment Diagnosis s/p R hip ORIF revision; difficulty in walking Onset Date 05/23/20 Weight Bearing Status Weight Bearing Status Touch Down Weight Bearing Allowed Weight Bearing Amount (enter % RLE TTWB or #) (%) M3 PT-IP Subjective Start: 05/24/20 11:12 Freq: NEEDED Status: Active Protocol: Document 05/24/20 13:44 AB (Rec: 05/24/20 15:17 AB [id number]) Subjective Physical Therapy Visit Type Type Treatment Note Visit Start Time 13:44 Visit Stop Time 14:03 Total Visit Minutes 19 Number of OYSTER GROWER Visits 0 Physical Therapy Visit Comments Patient Comments pt is agreeable to do PT Therapy Pain Assessment Pain When Pain Assessed At Rest Pain Present Pain Present Pain Reported Location Right Hip Intensity 2 Scale Used Numeric (0 - 10) Pain Management Techniques Modification of Treatment,Re- positioning,Timing of Activity with Medications M4 PT-IP Mobility and Gait Start: 05/24/20 11:12 Freq: NEEDED Status: Active Protocol: Document 05/24/20 13:44 AB (Rec: 05/24/20 15:17 AB [id number]) PT-Transfer Assessment Sit to and From Stand Sit to and from Stand Minimal Assistance,1 Person Assistance,Use of Upper Extremities Equipment Transfer Assistive Device Gait Belt,Front Wheeled Walker Orthotic/Prosthetic Devices or Brace: No Transfers Transfer Destination Chair,Toilet Transfer Technique ambulated using FWW Transfer Ability Level of Assist Minimal Assistance,1 Person Assistance,Use of Upper Extremities Comments Mobility Comments pt sitting on chair. spouse in room with PT. educated on how to ambulate with NWB on RLE. completed sit to stand min A and cues. ambulated ~ 3 ft to bed min A and cues. requested to use the toilet and ambulated ~ 12 ft using FWW to the toilet min A. requires assist with stabilizing FWW. pt wanted to get a shower and informed [facility] . assisted pt to the shower chair and ambulated ~ 5 ft using FWW to shower chair min A. NAC took over. Gait Assessment Gait Gait Assistance Required: Minimum Assistance,1 Person Assist Distance (Feet) 12 Able to Maintain Weight Bearing Status Yes During Gait Assistive Devices Assistive Device Gait Belt,Front Wheeled Walker Orthotic/Prosthetic Devices or Brace: No Factors Limiting Gait Function Factors Limiting Gait Function Decreased Activity Tolerance, Decreased Strength,Difficulty Following Directions,Limited Range of Motion,Pain,Poor Balance,Poor Safety Awareness M5 PT-IP Objective Assessments Start: 05/24/20 11:12 Freq: NEEDED Status: Active Protocol: Document 05/24/20 09:30 AB (Rec: 05/24/20 11:34 AB [id number]) Orientation Orientation/Cognition Level of Alertness Alert Orientation Name,Place,Situation Safety Awareness Decreased Safety Awareness Memory Description Short Term Impaired Gross Range of Motion Lower Extremity ROM Assessment Within Functional Limits Strength Lower Extremity Strength Assessment Right Impaired Hip 3-/5 Knee 3+/5 Muscle Tone Muscle Tone WNL Yes M6 PT-IP Treatment Start: 05/24/20 11:12 Freq: NEEDED Status: Active Protocol: Document 05/24/20 13:44 AB (Rec: 05/24/20 15:17 AB [id number]) Physical Therapy Treatment Education Education Provided Weight Bearing Status,Safety M7 PT-IP Assessment and Plan Start: 05/24/20 11:12 Freq: NEEDED Status: Active Protocol: Document 05/24/20 13:44 AB (Rec: 05/24/20 15:17 AB [id number]) PT Summary Assessment and Plan Potential Rehabilitation Potential Good Summary Impairments Pain,ROM,Strength,Balance, Coordination,Sensation,Tone, Cognition,Bed Mobility, Transfers,Gait,Activity Tolerance Progress Towards Goals Slow Progress due to Activity Tolerance,Slow Progress - Other Assessment Summary pt requiring min A with mobility using FWW. pt will benefit from SNF rehab to improve strength and function. Goals Bed Mobility Goal Standby Assistance Transfer Goal Standby Assistance,Front Wheeled Walker Gait Goal Minimal Assistance,Front Wheel Walker Gait Distance 25 Days to Meet Goals 5 Frequency of Treatment Frequency Of Treatment Twice a Day Treatment Plan Physical Therapy Treatment Plan Bed Mobility Training,Transfer Training,Gait Training, Therapeutic Exercise,Balance Retraining,Post Op Education, Discharge Planning,Hot or Cold Pack,Neuromuscular Re-ed, Coordination Retraining,Manual Therapy Other Recommendations and Next Treatment transfers, ambulation Focus Recommendations To Nursing Amount of Assist Needed 1 Person Assist Discharge Recommendations PT Discharge Recommendations SNF Rehab Transportation Needs at Discharge Wheelchair/Cabulance
[2020-05-24] MEDS: MAGNESIUM HYDROXIDE 30 ML UDC PO (20:08)
[2020-05-25] MEDS: OXYCODONE IR 5 MG TABLET PO (01:09)
[2020-05-25] MEDS: TRAZODONE 50 MG TABLET 150 MG PO (01:41)
[2020-05-25] MEDS: MORPHINE 2 MG/ML INJ 0.5 MG IV (02:01)
[2020-05-25 04:44] VITALS: BP 126/73; PULSE 93; RESP 16; TEMP 36.3; O2SAT 98
--- NOTE | 2020-05-25 07:33 | P.PN_ITS ---
Subjective Subjective Date Patient Seen: 05/25/20 Time Patient Seen: 07:33 Interval history: She is doing well. Still requiring assist with physical therapy will was up and walking well yesterday. Exam Vital Signs (past 8 hours): - 05/24/20 23:35 05/25/20 04:44 Temperature 97.3 F L 97.4 F L Pulse Rate 95 H 93 H Respiratory Rate 16 16 Blood Pressure 124/75 126/73 Pulse Oximetry 97 98 Oxygen Delivery Method Room Air Oxygen Flow Rate 0 Const Orientation: alert and oriented x3 Extrem Other: CDI. Soft calf, pain-free logroll of the hip Objective Labs Result Diagrams: 05/24/20 05:50 05/23/20 17:06 [facility] Medical History Acid reflux Depression History of suicide attempt Surgical History H/O knee surgery Status post right knee replacement Family History Other Adopted Social History household members: spouse Smoking Status: Former smoker alcohol intake: former Assessment & Plan Post-op Postoperative Procedures: Procedures Operation Date: 05/23/20 18:00 Actual Procedures Side Surgeon p Revision hip Screw Right Mike Marcos MD She is doing well. Mobilize with physical therapy. Anticipate discharge back to [facility] tomorrow. Quality VTE Deep Vein Thrombosis/Pulmonary Embolism Present on Admission: No
--- NOTE | 2020-05-25 07:58 | P.DS_ITS ---
History of Present Illness History of Present Illness Date Patient Seen: 05/25/20 Time Patient Seen: 07:58 Chief complaint: R hip hardware revision Narrative: 64-year-old female with right hip fracture. She fell 2 weeks ago and underwent ORIF of the right hip with an IM nail and hip screw. She had done quite well postoperatively and went to [facility] for rehabilitation. She reports she has been having some more pain in the hip when she is up and walking. She had her 1st postop visit today and the x-rays showed that the hip fracture had shifted and the screw had penetrated up through the head of the hip. It was felt that she needed revision surgery. Discharge Providers Provider Date of admission: 05/23/20 17:08 Discharge Date: 05/25/20 Consults: 05/23/20 22:46 Consult to Discharge Planning Routine Comment: Consult to Physical Therapy Evaluate & Treat Comment: BRIT LEMUSE Physician Instructions: Evaluate and Treat Consult to Respiratory Therapy Evaluate & Treat Comment: Physician Instructions: Evaluate and treat Discharge provider: Mkie Marcos MD Summary Hospital Course Discharge Diagnosis: Right hip fracture Hospital Course: She is brought to the operating room on 05/23/2020 where she underwent revision of her right hip screw. This was stable intraoperatively with the new fixation. She was up the next day with physical therapy. Her pain was doing well. She was slowly mobilizing still requiring at least 1 person assist. It was felt that she would need to go back to skilled rehab prior to going home. Status at Discharge Cognitive/behavioral status at discharge: oriented Functional status at discharge: uses cane/walker Overall status at discharge: patient is progressing back to baseline Exam Vital Signs (past 8 hours): - 05/25/20 04:44 Temperature 97.4 F L Pulse Rate 93 H Respiratory Rate 16 Blood Pressure 126/73 Pulse Oximetry 98 Oxygen Delivery Method Room Air Oxygen Flow Rate 0 Const Orientation: alert and oriented x3 Extrem Other: CDI. Pain-free logroll of the hip. Soft calf. Objective Labs Result Diagrams: 05/24/20 05:50 05/23/20 17:06 [facility] Medical History Acid reflux Depression History of suicide attempt Surgical History H/O knee surgery Status post right knee replacement Family History Other Adopted Social History household members: spouse Smoking Status: Former smoker alcohol intake: former Discharge Assessment & Plan Assessment and Plan Assessment: Right hip fracture, now status post revision of hardware Plan of Treatment: Touchdown weight-bearing. Transfer to skilled rehab prior to discharge home. Discharge Plan Discharge Plan Patient Disposition: SNF Transfer to: [facility] Provider Discharge Comment: Follow-up 1.[address] Marcos Discharge orders & Medications Prescriptions: New oxycodone 5 mg Tablet 5 mg PO Q3HR PRN (Reason: Pain, Moderate (4-6)) Qty: 20 RF: 0 Continued trazodone 150 mg PO QPM RF: 0 omeprazole magnesium [Acid A&P Mechanic (omeprazole)] 20 mg Capsule,Delayed Release(Dr/Ec) 20 mg PO DAILY RF: 0 lysine 1,000 mg Tablet 1,000 mg PO DAILY RF: 0 duloxetine 60 mg Capsule,Delayed Release(Dr/Ec) 60 mg PO DAILY RF: 0 acetaminophen 325 mg Tablet 975 mg PO TID PRN (Reason: pain) 30 Days Qty: 30 RF: 0 magnesium hydroxide [Milk of Magnesia] 400 mg/5 mL Suspension 30 ml PO BEDTIME Qty: 30 RF: 0 bisacodyl 10 mg Suppository 10 mg W[place] PRN PRN (Reason: Constipation) Qty: 30 RF: 0 docusate sodium [DOK] 100 mg Capsule 100 mg PO BID Qty: 30 RF: 0 calcium carbonate-vitamin D3 [Oyster Shell Calcium-Vit D3] 500 mg(1,250mg) -200 unit Tablet 1 ea PO BIDWM Qty: 30 RF: 0 oxycodone 10 mg Tablet 10 mg PO Q3HR PRN (Reason: Pain, Severe (7-10)) Qty: 30 RF: 0 aspirin 81 mg tablet,delayed release (DR/EC) 81 mg PO BID Qty: 60 RF: 0 Discharge Health Status Multidrug resistant organism: No MDRO Precautions: [place] Diet/Activity/Treatments Diet: Diet as Tolerated Liquid consistency: Normal/Thin Food texture: Regular Activity: Touchdown weight-bearing on the right leg Skin/Wound/Dressing Care Report to your healthcare provider any signs of infection, such as:: chills, fever, night sweats, increased pain, unusual drainage and unusual redness Dressing: May shower over dressing for the 1st 5 days after surgery. On 05/28/2020, you may take down the dressing and shower over the incision. Please replace this with a clean dressing when done. Special Rehabilitation Services Reason for rehabilitation: Post-operative therapy Rehab type: Physical therapy and Occupational therapy Visit Report/Discharge Packet Instructions: DI for Prescription Opioid Use Stand Alone Forms: Surgery Discharge Quality VTE Deep Vein Thrombosis/Pulmonary Embolism Present on Admission: No
[2020-05-25] MEDS: polyethylene glycoL 3350 17 GM POWD.PACK PO (08:55)
[2020-05-25] MEDS: CALCIUM CARB/VIT D3 500/200 TABLET 1 EACH PO (08:55)
[2020-05-25] MEDS: DOCUSATE 100 MG CAPSULE PO (08:55)
[2020-05-25] MEDS: OXYCODONE IR 10 MG TABLET PO (08:55)
[2020-05-25] MEDS: ASPIRIN EC 81 MG TABLET PO (08:55)
[2020-05-25] MEDS: DULOXETINE 30 MG CAPSULE 60 MG PO (08:55)
[2020-05-25] MEDS: ENOXAPARIN 30 MG/0.3 ML SYRINGE SUBCUT (08:55)
[2020-05-25] MEDS: PANTOPRAZOLE 20 MG TABLET PO (08:55)
[2020-05-25] MEDS: SODIUM CHLORIDE 0.9% FLUSH 10 ML IV (08:56)
[2020-05-25 09:50] VITALS: BP 106/54; PULSE 84; RESP 16; TEMP 36.1; O2SAT 95
--- NOTE | 2020-05-25 10:43 | CM.DPNOTE ---
Addendum entered by AURORA Nascimento 05/25/20 15:24: Patient aware and agreeable to plan today, back to [facility]; patient visiting w/her at bedside before return to [facility] (where no visitors allowed). Original Note: Per Nasima's request, called Isabella at [facility] [phone] to receive authorization number for [facility], [facility], #[id number]. She asked me to call Shu at to make sure pt. bed was still available. Spoke with Shu at and they will accept pt. back. I gave her [facility] auth number. She said she needs a signed med list and any scripts. Shu asked when the pt. last had Covid test and I told her 05/23/20 at 17:08. She said this was okay. She set up transport to [facility] pt. at 12:15 today. Reina Rice CM Asst.
--- NOTE | 2020-05-25 11:31 | PT.IPTN ---
Current Diagnoses Displacement of internal fixation device of right femur, initial encounter (05/23/20) Surgery Performed Operation Date: 05/23/20 18:00 Actual Procedures p Revision hip Screw(Right) - Mike Marcos MD Physical Therapy Treatment Note M2 PT-IP Current Condition Start: 05/24/20 11:12 Freq: NEEDED Status: Active Protocol: Document 05/24/20 09:30 AB (Rec: 05/24/20 11:34 AB [id number]) Physical Therapy Current Condition Current Condition Evaluation Date 05/24/20 Treatment Diagnosis s/p R hip ORIF revision; difficulty in walking Onset Date 05/23/20 Weight Bearing Status Weight Bearing Status Touch Down Weight Bearing Allowed Weight Bearing Amount (enter % RLE TTWB or #) (%) M3 PT-IP Subjective Start: 05/24/20 11:12 Freq: NEEDED Status: Active Protocol: Document 05/25/20 11:31 AB (Rec: 05/25/20 12:36 AB [id number]) Subjective Physical Therapy Visit Type Type Treatment Note Visit Start Time 11:31 Visit Stop Time 12:04 Total Visit Minutes 33 Number of MONTESSORI PARAPROFESSIONAL Visits 0 Physical Therapy Visit Comments Patient Comments pt is agreeable to do PT Therapy Pain Assessment Pain When Pain Assessed At Rest Pain Present Pain Present Pain Reported Location Right Hip Intensity 3 Scale Used Numeric (0 - 10) Pain Management Techniques Modification of Treatment,Re- positioning,Timing of Activity with Medications M4 PT-IP Mobility and Gait Start: 05/24/20 11:12 Freq: NEEDED Status: Active Protocol: Document 05/25/20 11:31 AB (Rec: 05/25/20 12:36 AB [id number]) PT-Bed Mobility Assessment Supine to Sit Supine to Sit Minimal Assistance,1 Person Assistance Sit to Supine Sit to Supine Standby Assistance Scooting Scooting to Edge of Bed Standby Assistance PT-Transfer Assessment Sit to and From Stand Sit to and from Stand Contact Guard Assistance,1 Person Assistance,Use of Upper Extremities Equipment Transfer Assistive Device Gait Belt,Front Wheeled Walker Orthotic/Prosthetic Devices or Brace: No Transfers Transfer Destination Bed,Chair Transfer Technique ambulated using FWW Transfer Ability Level of Assist Contact Guard Assistance,1 Person Assistance,Use of Upper Extremities Comments Mobility Comments pt completed sit to stand from chair CGA and ambulated to the bed using FWW NWB on RLE CGA. pt completed sit to supine SBA and cues for techniques. completed supine to sit min A for RLE mobility. ambulated back to chair using fWW CGA. positioned on chair. set up for lunch. call light and table placed within reach. Gait Assessment Gait Gait Assistance Required: Contact Guard Assist Distance (Feet) 10 Able to Maintain Weight Bearing Status Yes During Gait Assistive Devices Assistive Device Gait Belt,Front Wheeled Walker Orthotic/Prosthetic Devices or Brace: No Factors Limiting Gait Function Factors Limiting Gait Function Decreased Activity Tolerance, Decreased Strength,Limited Range of Motion,Pain,Poor Balance,Poor Safety Awareness M5 PT-IP Objective Assessments Start: 05/24/20 11:12 Freq: NEEDED Status: Active Protocol: Document 05/24/20 09:30 AB (Rec: 05/24/20 11:34 AB [id number]) Orientation Orientation/Cognition Level of Alertness Alert Orientation Name,Place,Situation Safety Awareness Decreased Safety Awareness Memory Description Short Term Impaired Gross Range of Motion Lower Extremity ROM Assessment Within Functional Limits Strength Lower Extremity Strength Assessment Right Impaired Hip 3-/5 Knee 3+/5 Muscle Tone Muscle Tone WNL Yes M6 PT-IP Treatment Start: 05/24/20 11:12 Freq: NEEDED Status: Active Protocol: Document 05/25/20 11:31 AB (Rec: 05/25/20 12:36 AB [id number]) Physical Therapy Treatment Education Education Provided Safety M7 PT-IP Assessment and Plan Start: 05/24/20 11:12 Freq: NEEDED Status: Active Protocol: Document 05/25/20 11:31 AB (Rec: 05/25/20 12:36 AB [id number]) PT Summary Assessment and Plan Potential Rehabilitation Potential Good Summary Impairments Pain,ROM,Strength,Balance, Coordination,Bed Mobility, Transfers,Gait,Activity Tolerance Progress Towards Goals Slow Progress due to Activity Tolerance,Slow Progress - Other Assessment Summary pt progressing slowly with mobility. able to transfer using FWW CGA but limited distance due to NWB RLE. pt will need SNF rehab to improve strength and mobility. Goals Bed Mobility Goal Standby Assistance Transfer Goal Standby Assistance,Front Wheeled Walker Gait Goal Minimal Assistance,Front Wheel Walker Gait Distance 25 Days to Meet Goals 5 Frequency of Treatment Frequency Of Treatment Twice a Day Treatment Plan Physical Therapy Treatment Plan Bed Mobility Training,Transfer Training,Gait Training, Therapeutic Exercise,Balance Retraining,Post Op Education, Discharge Planning,Hot or Cold Pack,Neuromuscular Re-ed, Coordination Retraining,Manual Therapy Other Recommendations and Next Treatment transfers, ambulation Focus Recommendations To Nursing Amount of Assist Needed 1 Person Assist Discharge Recommendations PT Discharge Recommendations SNF Rehab Transportation Needs at Discharge Wheelchair/Cabulance
--- NOTE | 2020-05-25 11:32 | CM.DPNOTE ---
Faxed medication list and script per October to [facility] today and received fax confirmation. Reina Rice CM Assist.
--- NOTE | 2020-05-25 12:42 | PC.NURSE ---
Discharge note: Patient up OOB, 1PA FWW, toe touch weight bearing. Cleared by PT for discharge to [facility]. Awake, alert, and pleasant. Spouse Garrett at bedside providing supportive care. Pain controlled with PO pain medications. Report given to Thalia, receiving nurse at [facility], all questions answered. All belongings given to patient. Discharge to [facility], in stable condition via WC by [facility] transport staff.
== END 2020-05-25 13:00 | DRG 480 ==
LOC: ED 16:33 → AC 17:09
PROVIDERS: Admitting Provider Orthopaedic Surgery; Emergency Provider Emergency Medicine; Referring Provider Orthopaedic Surgery; Visit Provider Orthopaedic Surgery
PROC: 0QH604Z Insertion of Internal Fixation Device into Right Upper Femur, Open Approach (ICD-10-PCS; CPT 27245; principal; 2020-05-23 18:00)
DX: T84.124A Displacement of internal fixation device of right femur, initial encounter (principal); S72.001A Fracture of unspecified part of neck of right femur, initial encounter for closed fracture; F32.9 Major depressive disorder, single episode, unspecified; K21.9 Gastro-esophageal reflux disease without esophagitis; W19.XXXA Unspecified fall, initial encounter; Z87.891 Personal history of nicotine dependence
CPT/HCPCS: 36415; 73502; 80053; 85014; 85018; 85025; 87635; 94760; 97116; 97161; 97530; 99282; 99284; C9803; J0690; J1100; J1650; J2270; J2405; J2704; J3010

== ENCOUNTER → 2020-05-31 10:44 | Outpatient (CLI) | payer OTHER, SELFPAY ==
[2020-05-23 18:00] VITALS: BMI 33.8
--- NOTE | 2020-05-31 10:48 | DI.RAD.S_ITS ---
PROCEDURE: XR HIP W PEL IF DONE RT 2V INDICATIONS: RT HIP PAIN TECHNIQUE: 2 views of the hip were acquired. COMPARISON: [facility], CR, XR HIP W PEL IF DONE RT 2V, 05/22/2020, 10:12. [facility], CR, XR HIP W PEL IF DONE RT 2V, 05/23/2020, 20:43. [facility], CR, XR HIP W PEL IF DONE RT 2V, 05/08/2020, 2:45. FINDINGS: Bones: Stable bony alignment status post ORIF of right intertrochanteric hip fracture. Stable positioning of intramedullary toñito and proximal dynamic hip screw. The distal aspect of the intramedullary toñito is not visualized on the current examination. Mild right hip joint degeneration. Soft tissues: No suspicious soft tissue calcifications or masses. IMPRESSION: Stable alignment status post ORIF of right intertrochanteric hip fracture. Dictated by: Sloan FU Interpreted: Dick Caceres MD on 05/31/2020 at 11:05 Approved by: Dick Caceres M.D. on 05/31/2020 at 12:22
== END ==
PROVIDERS: PCP Orthopaedic Surgery; Referring Provider Orthopaedic Surgery; Visit Provider Orthopaedic Surgery
DX: M25.551 Pain in right hip (principal); S72.001P Fracture of unspecified part of neck of right femur, subsequent encounter for closed fracture with malunion
CPT/HCPCS: 73502

== ENCOUNTER → 2020-10-17 13:40 | Outpatient (CLI) | payer OTHER, SELFPAY ==
[2020-06-01 14:13] VITALS: BMI 33.8
== END ==
PROVIDERS: PCP Family Medicine; Referring Provider Family Medicine; Visit Provider Family Medicine
DX: M81.0 Age-related osteoporosis without current pathological fracture (principal); Z13.820 Encounter for screening for osteoporosis; Z78.0 Asymptomatic menopausal state; Z87.891 Personal history of nicotine dependence
CPT/HCPCS: 77080; 77081

== ENCOUNTER → 2020-12-01 11:25 | Outpatient (CLI) | payer OTHER, SELFPAY ==
[2020-06-01 14:13] VITALS: BMI 33.8
--- NOTE | 2020-12-01 11:27 | DI.RAD.S_ITS ---
PROCEDURE: XR HIP W PEL IF DONE RT 2V INDICATIONS: pain TECHNIQUE: AP pelvis with lateral view(s) of the right hip(s). COMPARISON: [facility], CR, XR PELVIS WITH LATERAL HIP RIGHT, 07/20/2020, 13:01. [facility], CR, XR FEMUR 2+ VIEWS RIGHT, 06/22/2020, 12:58. [facility], CR, XR PELVIS WITH LATERAL HIP RIGHT, 06/22/2020, 12:58. [facility], CR, XR HIP W PEL IF DONE RT 2V, 05/31/2020, 10:53. FINDINGS: Bones: There is a remodeling fracture seen involving the subtrochanteric right proximal femur. No new fractures or dislocations. Pelvic ring appears intact. No suspicious bony lesions. Right femur postoperative hardware is seen. No findings of hardware failure or hardware loosening are seen. Unremarkable left knee arthroplasty hardware is also seen. There is [id number] superior joint space narrowing seen of both hips, with associated remodeling changes with subchondral sclerosis and osteophyte formation. Age-appropriate lower lumbar spine degenerative changes are noted. Soft tissues: The visualized bowel gas pattern is normal. No suspicious soft tissue calcifications. IMPRESSION: Healing right proximal femur fracture. Intact appearing hardware. [id number] bilateral hip degenerative change. Dictated by: Yadiel Guzman M.D. on 12/01/2020 at 11:01 Approved by: Yadiel Guzman M.D. on 12/01/2020 at 11:03
[2020-12-01 13:08] LABS: Add Manual Diff / Slide Review NO; Basophils Absolute Auto 100 /uL (0-100); Basophils Percent Auto 1.5 % (0-2); Eosinophils Absolute Auto 100 /uL (0-450); Eosinophils Percent Auto 1.9 % (2-4); Hematocrit 39.7 % (36-46); Hemoglobin 13.1 g/dL (12.0-16.0); Lymphocytes Absolute Auto 1500 /uL (1100-4500); Lymphocytes Percent Auto 32.3 % (25-40); Mean Corpuscular HGB Conc 32.9 % (30-36); Mean Corpuscular Hemoglobin 28.6 PG (26-34); Mean Corpuscular Volume 86.9 fL (80-100); Monocytes Absolute Auto 400 /uL (0-900); Monocytes Percent Auto 7.7 % (3-14); Neutrophils Absolute Auto 2700 /uL (1500-7000); Neutrophils Percent Auto 56.6 % (50-75); Platelet Count 201 X10^3/uL (150-400); Red Blood Cell Count 4.57 X10^6/uL (4.0-5.2); Red Cell Distribution Width 14.3 % (11.6-14.8); White Blood Cell Count 4.8 X10^3/uL (4.5-11.0)
[2020-12-01 13:14] LABS: Alanine Aminotransferase 34 IU/L (<35); Albumin 4.2 g/dL (3.5-5.0); Albumin Globulin Ratio 1.2 (1.0-2.8); Alkaline Phosphatase 81 U/L (38-126); Aspartate Aminotransferase 31 IU/L (14-36); BUN Creatinine Ratio 25.3 (6-22); Bilirubin Total 0.4 mg/dL (0.2-1.3); Blood Urea Nitrogen 19 mg/dL (7-17); Calcium 9.8 mg/dL (8.4-10.2); Carbon Dioxide 25 mmol/L (22-32); Chloride 105 mmol/L (98-107); Cholesterol 269 mg/dL (140-199); Estimated Glomerular Filt Rate > 60.0 mL/min (>60); Globulin 3.5 g/dL (1.7-4.1); Glucose 128 mg/dL (80-110); HDL Cholesterol 44 mg/dL (40-60); HEMOLYSIS < 15 (0-50); LDL Cholesterol Calculated 157 mg/dL (<100); Sodium 140 mmol/L (137-145); Total Protein 7.7 g/dL (6.3-8.2); Triglycerides 338 mg/dL (35-150)
[2020-12-01 13:17] LABS: Hemoglobin A1C% w Est Avg Glu 5.6 % (4.0-6.0)
== END ==
PROVIDERS: PCP Family Medicine; Referring Provider Family Medicine; Visit Provider Family Medicine
DX: M25.551 Pain in right hip (principal); S72.21XD Displaced subtrochanteric fracture of right femur, subsequent encounter for closed fracture with routine healing; R73.03 Prediabetes; E66.9 Obesity, unspecified; Z96.641 Presence of right artificial hip joint; Z79.899 Other long term (current) drug therapy
CPT/HCPCS: 36415; 73502; 80053; 80061; 83036; 85025

== ENCOUNTER → 2021-10-22 08:04 | Outpatient (CLI) | payer OTHER, SELFPAY ==
[2020-06-01 14:13] VITALS: BMI 33.8
== END ==
PROVIDERS: PCP Family Medicine; Referring Provider Orthopaedic Surgery; Visit Provider Orthopaedic Surgery
DX: S72.21 Displaced subtrochanteric fracture of right femur (principal); Z53.20 Procedure and treatment not carried out because of patient's decision for unspecified reasons

== ENCOUNTER → 2022-05-27 14:10 | Outpatient (CLI) | payer OTHER, SELFPAY ==
[2020-06-01 14:13] VITALS: BMI 33.8
--- NOTE | 2022-05-27 14:26 | DIET.CONS ---
Dietary Consultation Note Admission Date: Assessment: 66y [address] visit for help with lipid management and preDM. Pt approved by [employer] for 6 visits, this is visit 1 of 6. Pt lives with in 200sq foot RV with little food storage, no opportunity to have deep freeze. 3y in December, hoping to stay. on home O2 with COPD trouble taking diuretics due to frequent urination. Food Recall: wakes 7-830am- not well rested 2c coffee with creamer skips breakfast- not hungry gets hungry about noon L: whole bag cheetos, roast beef or turkey sandwiches, soups, chicken caesar salad, water D: sometimes just garlic bread, sometimes just toast. some depression which she says she emotionally eats. BMI: 33.8 Nutrition Diagnosis: altered nutrition related laboratory values (BG, lipids) r/t nutrition related knowledge deficit aeb diet low in protein and fiber, FBG >95, TGs >150, LDL >100. Interventions: Using worksheet, educated pt on added sugar, sodium, and dietary fiber in diet. Practiced label reading and problem solved meals and snacks to fit rec. Pt will shop for dozen eggs, LS refried beans, LS broth, canned pears in juice to support health status. Focus on items not needing refrigeration and cost effective. Pt will more carefully read food labels for these nutrients of concern. 2. Discussed importance of adding protein to all meals. Idea generated healthy and easy dinner ideas. Provided resource of [employer] for meal ideas. EER: no more than 25g added sugar daily, 21g dietary fiber Monitoring/Evaluations: f/u in 6 weeks to continue education and address emotional eating habits Electronically Signed by: Kimberly Weinberg 05/27/22 14:26 Clinical Dietitian [id number] [place] [address]
== END ==
PROVIDERS: Referring Provider Family Medicine; Visit Provider Family Medicine
DX: R73.03 Prediabetes (principal); Z68.33 Body mass index [BMI] 33.0-33.9, adult; Z71.3 Dietary counseling and surveillance
CPT/HCPCS: 97802

== ENCOUNTER → 2022-06-17 14:29 | Outpatient (CLI) | payer OTHER, SELFPAY ==
[2020-06-01 14:13] VITALS: BMI 33.8
--- NOTE | 2022-06-17 14:31 | DI.MG.S_ITS ---
BILATERAL DIGITAL SCREENING MAMMOGRAM 3D/2D WITH CAD: 06/17/2022 CLINICAL: Routine screening. Baseline exam. No prior exams were available for comparison. There are scattered areas of fibroglandular density in both breasts (category b / 25%-50% glandular tissue). Current study was also evaluated with a Computer Aided Detection (CAD) system. No significant masses, calcifications, or other findings are seen in either breast. IMPRESSION: NEGATIVE There is no mammographic evidence of malignancy. A 1 year screening mammogram is recommended. Based on the Tyrer Cuzick model (a risk assessment model) the patient's lifetime risk is 5.4% and her 10 year risk is 3.0%. According to the ACR, ACS, and NCCN guidelines, an annual breast MRI exam along with mammogram is recommended if the patient's lifetime risk is 20% or greater. This exam was interpreted at Station ID: [id number]. NOTE: For mammograms, a report in lay terms will be sent to the patient. Approximately 15% of breast malignancies will not be visualized mammographically. In the management of a palpable breast mass, a negative mammogram must not discourage biopsy of a clinically suspicious lesion. Electronically Signed By: Dick barajas/tico:06/17/2022 16:54:35 letter sent: Normal Exam ACR BI-RADS Category 1: Negative [id number]
== END ==
PROVIDERS: PCP Family Medicine; Referring Provider Family Medicine; Visit Provider Family Medicine
DX: Z12.31 Encounter for screening mammogram for malignant neoplasm of breast (principal)
CPT/HCPCS: 77063; 77067

== ENCOUNTER 2023-04-22 15:07 | Emergency (ER) | payer OTHER, SELFPAY ==
[2020-06-01 14:13] VITALS: BMI 33.8
[2023-04-22 15:36] VITALS: BP 183/103; PULSE 106; RESP 22; TEMP 36.6; O2SAT 98; BMI 35.4
[2023-04-22 16:15] LABS: Bacteria Urine None Seen; Culture Indicated Urine Cult Not Indicated; RBC Urine 5-10/HPF (0-5/HPF); Squamous Epithelial Cell Urine None Seen (0-5/HPF); WBC Urine 0-1/HPF (0-5/HPF)
--- NOTE | 2023-04-22 19:00 | PC.NURSE ---
Ambulatory with steady gait from waiting room to exam room. NAD. Spouse with pt.
[2023-04-22 19:19] VITALS: PULSE 98; RESP 20; TEMP 37.2; O2SAT 99
--- NOTE | 2023-04-22 20:10 | ED.GENADULT ---
HPI - General Adult General Chief complaint: Urogenital-Female Stated complaint: kidney stone/ nause/ blood in urine Time Seen by Provider: 04/22/23 18:06 Source: patient Mode of arrival: Wheelchair History of Present Illness HPI narrative: Patient is a 67-year-old female who is here for evaluation of nausea, blood in her urine, left-sided flank and abdominal discomfort. She is never had a kidney stone in the past. Symptoms started last evening and continued until this morning and then things seemed to improve but then as the day went on symptoms returned again. She denies any fevers. No change in bowel habits. No chest pain, shortness of breath. Related Data Home Medications Medication Instructions Recorded Confirmed omeprazole magnesium 20 mg 20 mg PO DAILY 05/08/20 08/07/20 capsule,delayed release (Acid Watch Crystal Molder (omeprazole)) lysine 1,000 mg tablet 1,000 mg PO DAILY 05/09/20 08/07/20 Previous Rx's Medication Instructions Recorded aspirin 81 mg tablet,delayed 81 mg PO BID #60 tabs 05/11/20 release bisacodyl 10 mg rectal suppository [address] PRN PRN Constipation #30 05/11/20 ea calcium carbonate 500 mg-vitamin 1 ea PO BIDWM #30 tabs 05/11/20 D3 5 mcg (200 unit) tablet (Oyster Shell Calcium-Vitamin D3) docusate sodium 100 mg capsule 100 mg PO BID #30 caps 05/11/20 (DOK) magnesium hydroxide 400 mg/5 mL 30 ml PO BEDTIME #30 mL 05/11/20 oral suspension (Milk of Magnesia) alendronate 10 mg tablet 10 mg PO DAILY #90 tabs 11/27/20 varenicline 0.5 mg tablet 0.5 mg PO DAILY #11 tabs 02/27/21 duloxetine 60 mg capsule,delayed See Rx Instructions .Route 09/16/21 release .COMPLEX #90 caps trazodone 50 mg tablet See Rx Instructions .Route 01/20/22 .COMPLEX #270 tabs varenicline 1 mg tablet See Rx Instructions .Route 01/20/22 .COMPLEX #56 tabs hydrocodone 5 mg-acetaminophen 325 1 tab PO Q4-6H PRN pain #10 tabs 04/22/23 mg tablet ondansetron 4 mg disintegrating 4 mg PO Q6H PRN nausea and 04/22/23 tablet vomiting #10 tabs Allergies Allergy/AdvReac Type Severity Reaction Status Date / Time Sulfa (Sulfonamide AdvReac Severe Vomiting Verified 08/07/20 10:11 Antibiotics) Review of Systems Constitutional Constitutional: Reports system reviewed and no additional complaints, except as documented Cardiovascular Cardiovascular: Reports system reviewed and no additional complaints, except as documented Gastrointestinal Gastrointestinal: Reports system reviewed and no additional complaints, except as documented Genitourinary Genitourinary: Reports system reviewed and no additional complaints, except as documented Integumentary/Breasts Skin/Breast: Reports system reviewed and no additional complaints, except as documented Neurologic Neurologic: Reports system reviewed and no additional complaints, except as documented Patient History Medical History Osteoporosis Pre-diabetes Hip pain, right Squamous cell carcinoma in situ Chronic pain in left shoulder Chronic pain of both knees History of suicide attempt Depression Acid reflux Surgical History (Updated 11/27/20 @ 14:00 by Brian Us DO) History of right hip replacement Status post right knee replacement H/O knee surgery Family History Other Adopted Social History household members: spouse Smoking Status: Former smoker alcohol intake: former Smoking Status: Former smoker Substance Use Type: does not use Exam Initial Vital Signs Initial Vital Signs: Vital Signs Temperature 97.8 F 04/22/23 15:36 Pulse Rate 106 H 04/22/23 15:36 Respiratory Rate 22 04/22/23 15:36 Blood Pressure 183/103 H 04/22/23 15:36 Pulse Oximetry 98 04/22/23 15:36 Oxygen Delivery Method Room Air 04/22/23 15:36 HENMT Head: normal to inspection and normocephalic Resp Effort & Inspection: normal respiratory effort Auscultation: clear to auscultation bilaterally Cardio Rate: regular rate Rhythm: regular rhythm GI Inspection: normal to inspection and non-distended Palpation: soft Skin General: no rashes or lesions noted Course Orders Ordered: ED Orders 04/22/23 19:45 Complete Blood Count AUTO DIFF Stat Comprehensive Metabolic Panel Stat Lipase Stat 04/22/23 20:10 CT kidney ureter bladder (KUB) Stat Discontinued Medications Hydrocodone Bitart/Acetaminophen (Hydrocodone/Acet 5/325 Prepack) 1 bottle MISC DIRECTED ONE Stop: 04/22/23 21:48 Last Admin: 04/22/23 22:15 Dose: 1 bottle Documented By: ELLA Ondansetron HCl (Ondansetron 4 Mg Odt) 4 mg PO NOW PRN PRN Reason: Nausea And Vomiting Ondansetron HCl (Ondansetron 4 Mg/2 Ml Inj) 4 mg IV NOW PRN PRN Reason: Nausea And Vomiting Ondansetron HCl (Ondansetron 4 Mg Odt Prepack) 1 bottle MISC DIRECTED ONE Stop: 04/22/23 21:48 Last Admin: 04/22/23 22:15 Dose: 1 bottle Documented By: ELLA Vital Signs Vital signs: Vital Signs - 8 hr 04/22/23 19:19 04/22/23 21:50 Temperature 99.0 F 99.0 F Pulse Rate 98 H 94 H Respiratory Rate 20 18 Blood Pressure 186/80 H Pulse Oximetry 99 98 Oxygen Delivery Method Room Air Room Air Medical Decision Making Lab Data Lab results reviewed: Yes I reviewed the patient's lab results. 04/22/23 19:45 04/22/23 19:45 Labs: Lab Results 04/22/23 04/22/23 Range/Units 15:40 19:45 WBC 11.4 H (4.5-11.0) X10^3/uL RBC 4.78 (4.0-5.2) X10^6/uL Hgb 13.4 (12.0-16.0) g/dL Hct 40.5 (36-46) % MCV 84.8 (80-100) fL MCH 28.1 (26-34) PG MCHC 33.1 (30-36) % RDW 14.4 (11.6-14.8) % Plt Count 216 (150-400) X10^3/uL Neut % (Auto) 82.0 H (50-75) % Lymph % (Auto) 10.6 L (25-40) % Mcdowell % (Auto) 6.7 (3-14) % Eos % (Auto) 0.0 L (2-4) % Baso % (Auto) 0.7 (0-2) % Neut # (Auto) 9300 H (0265-1743) /uL Lymph # (Auto) 1200 (4617-5257) /uL Mcdowell # (Auto) 800 (0-900) /uL Eos # (Auto) 0 (0-450) /uL Baso # (Auto) 100 (0-100) /uL Sodium 140 (137-145) mmol/L Potassium 3.9 (3.4-5.1) mmol/L Chloride 106 (98-107) mmol/L Carbon Dioxide 21 L (22-32) mmol/L BUN 24 H (7-17) mg/dL Creatinine 0.84 (0.52-1.04) mg/dL Estimated GFR > 60 (>60) mL/min BUN/Creatinine Ratio 28.6 H (6-22) Glucose 116 H (80-110) mg/dL Calcium 10.3 H (8.4-10.2) mg/dL Total Bilirubin 0.7 (0.2-1.3) mg/dL AST 90 H (14-36) IU/L ALT 53 H (<35) IU/L Alkaline Phosphatase 67 (38-126) U/L Total Protein 8.5 H (6.3-8.2) g/dL Albumin 4.8 (3.5-5.0) g/dL Globulin 3.7 (1.7-4.1) g/dL Albumin/Globulin Ratio 1.3 (1.0-2.8) Lipase 60 (23-300) U/L Urine RBC 5-10/hpf H (0-5/HPF) Urine WBC 0-1/hpf (0-5/HPF) Ur Squamous Epith Cells None seen (0-5/HPF) Urine Bacteria None seen (None) Ur Culture Indicated? Cult not indicated Urine Dip Bedside Urine Glucose Negative Bedside Urine Bilirubin - Negative Bedside Urine Ketone ++ 40 Urine Specific Sunbright 1.025 Bedside Urine Occult Blood +++ Bedside Urine pH 5.0 Bedside Urine Protein +++ 300 Bedside Urine Urobilinogen - Negative Bedside Urine Nitrite - Negative Bedside Urine Leukocytes - Negative Esterase Point of care testing: Urine Dip Bedside Urine Glucose Negative Bedside Urine Bilirubin - Negative Bedside Urine Ketone ++ 40 Urine Specific Sunbright 1.025 Bedside Urine Occult Blood +++ Bedside Urine pH 5.0 Bedside Urine Protein +++ 300 Bedside Urine Urobilinogen - Negative Bedside Urine Nitrite - Negative Bedside Urine Leukocytes - Negative Esterase Imaging Data CT scan - abdomen/pelvis: Radiologist's Impression: PROCEDURE: CT KIDNEY URETER BLADDER (KUB) INDICATIONS: L sided flank pain eval for stone TECHNIQUE: Axial sections were acquired from the lung bases to the pubic symphysis. Coronal and sagittal reformats were performed. For radiation dose reduction, the following was used: automated exposure control, adjustment of mA and/or kV according to patient size. COMPARISON: None. FINDINGS: Image quality: Excellent. Lung bases: 3 mm peripheral right middle lobe nodule. Heart: No significant findings. URINARY: Right Kidney: No stones or hydronephrosis. Right Ureter: No hydroureter. Normal course and caliber. Left Kidney: There is a 4 mm stone in the left kidney. Mild left hydronephrosis. Mild left perinephric stranding. Left Ureter: There is a 3 mm distal left ureteral stone with mild proximal hydroureter and whit ureteral stranding. Bladder: Normal wall thickness. No stones. ABDOMEN: Liver: No contour-deforming solid mass. Gallbladder: Status post cholecystectomy Biliary ducts: No biliary dilation. Pancreas: No ductal dilation. Spleen: Size is within normal limits. Adrenal Glands: No adrenal nodules. Stomach and Bowel: Normal colonic caliber, without significant wall thickening. Colonic diverticulosis without acute diverticulitis. Peritoneum: No abnormal intraperitoneal fluid. No free air. Ventral Wall: No hernia. Abdominal Nodes: No enlarged retroperitoneal or mesenteric lymph nodes. Vessels: Aorta and inferior vena cava are normal in size. Atherosclerotic vascular calcifications. PELVIS: Pelvic Organs: Unremarkable. Pelvic Nodes: Unremarkable. Miscellaneous: No inguinal hernias are seen. Bones: No acute vertebral body compression fractures. Multilevel spondylitic changes throughout the imaged spine. No suspicious osseous lesions. Postsurgical changes of the right hip. IMPRESSION: There is a mildly obstructing 3 mm distal left ureteral stone with associated mild left hydroureteronephrosis and associated whit ureteral/perinephric stranding. Recommend correlation for possible concurrent infectious uropathy. Additional 4 mm left renal stone. Colonic diverticulosis with acute diverticulitis. Atherosclerotic vascular disease. Other chronic findings as above ECG Data Attestation: I personally reviewed and interpreted this ECG as follows: Interpretation: Sinus tachycardia Ventricular rate 106 Left axis deviation Normal QRS No ST T wave changes MDM Narrative Medical decision making narrative: History and physical and CT scan consistent with the left-sided ureteral stone. Urinalysis is not consistent with an infection. Kidney function is unremarkable. She was actually feeling much better at the time of my exam. No indication for antibiotics. Discussed the findings with the CT scan with the patient. We did discuss return precautions and follow-up instructions. She expressed understanding and agreement Discharge Plan Departure Patient Disposition: Home Clinical Impression: Left ureteral stone Instructions: DI for Kidney Stones Activity Restrictions/Additional Instructions: Continue to take all of your medications as directed. Contact your primary doctor for a follow-up. Return to the emergency department for pain that is not controlled, fevers an inability to urinate like we discussed. Prescriptions: New ondansetron 4 mg tablet,disintegrating 4 mg PO Q6H PRN (Reason: nausea and vomiting) Qty: 10 0RF hydrocodone-acetaminophen 5-325 mg tablet 1 tab PO Q4-6H PRN (Reason: pain) Qty: 10 0RF No Action varenicline 0.5 mg tablet 0.5 mg PO DAILY Qty: 11 0RF Rx Instructions: 1 pill daily for 3 days, then 1 pill b.i.d. for 4 days. Use at start of therapy for smoking cessation duloxetine 60 mg capsule,delayed release(DR/EC) See Rx Instructions .ROUTE .COMPLEX Qty: 90 0RF Dose Instruction: Take 1 capsule (60 mg) by mouth daily Rx Instructions: Take 1 capsule (60 mg) by mouth daily varenicline 1 mg tablet See Rx Instructions .ROUTE .COMPLEX Qty: 56 3RF Dose Instruction: Take 1 tablet (1 mg) by mouth 2 times daily . Take after meals and with a full glass of water. (For use after completion of the 0.5 mg tablets) Rx Instructions: Take 1 tablet (1 mg) by mouth 2 times daily . Take after meals and with a full glass of water. (For use after completion of the 0.5 mg tablets) trazodone 50 mg tablet See Rx Instructions .ROUTE .COMPLEX Qty: 270 0RF Dose Instruction: Take 3 tablets (150 mg) by mouth at bedtime as needed Rx Instructions: Take 3 tablets (150 mg) by mouth at bedtime as needed alendronate 10 mg tablet 10 mg PO DAILY Qty: 90 3RF omeprazole magnesium [Acid Watch Crystal Molder (omeprazole)] 20 mg Capsule,Delayed Release(Dr/Ec) 20 mg PO DAILY lysine 1,000 mg Tablet 1,000 mg PO DAILY magnesium hydroxide [Milk of Magnesia] 400 mg/5 mL Suspension 30 ml PO BEDTIME Qty: 30 0RF bisacodyl 10 mg Suppository [address] PRN PRN (Reason: Constipation) Qty: 30 0RF docusate sodium [DOK] 100 mg Capsule 100 mg PO BID Qty: 30 0RF calcium carbonate-vitamin D3 [Oyster Shell Calcium-Vit D3] 500 mg(1,250mg) -200 unit Tablet 1 ea PO BIDWM Qty: 30 0RF aspirin 81 mg tablet,delayed release (DR/EC) 81 mg PO BID Qty: 60 0RF Referrals: Kingsley Quigley MD [Primary Care Provider] - Stand Alone Forms: Patient Portal/API
[2023-04-22 20:11] LABS: Add Manual Diff / Slide Review NO; Basophils Absolute Auto 100 /uL (0-100); Basophils Percent Auto 0.7 % (0-2); Eosinophils Absolute Auto 0 /uL (0-450); Hematocrit 40.5 % (36-46); Hemoglobin 13.4 g/dL (12.0-16.0); Lymphocytes Absolute Auto 1200 /uL (1100-4500); Lymphocytes Percent Auto 10.6 % (25-40); Mean Corpuscular HGB Conc 33.1 % (30-36); Mean Corpuscular Hemoglobin 28.1 PG (26-34); Mean Corpuscular Volume 84.8 fL (80-100); Monocytes Absolute Auto 800 /uL (0-900); Monocytes Percent Auto 6.7 % (3-14); Neutrophils Absolute Auto 9300 /uL (1500-7000); Platelet Count 216 X10^3/uL (150-400); Red Blood Cell Count 4.78 X10^6/uL (4.0-5.2); Red Cell Distribution Width 14.4 % (11.6-14.8); White Blood Cell Count 11.4 X10^3/uL (4.5-11.0)
[2023-04-22 20:15] LABS: Alanine Aminotransferase 53 IU/L (<35); Albumin 4.8 g/dL (3.5-5.0); Albumin Globulin Ratio 1.3 (1.0-2.8); Alkaline Phosphatase 67 U/L (38-126); Aspartate Aminotransferase 90 IU/L (14-36); BUN Creatinine Ratio 28.6 (6-22); Bilirubin Total 0.7 mg/dL (0.2-1.3); Blood Urea Nitrogen 24 mg/dL (7-17); Calcium 10.3 mg/dL (8.4-10.2); Carbon Dioxide 21 mmol/L (22-32); Chloride 106 mmol/L (98-107); Estimated Glomerular Filt Rate > 60 mL/min (>60); Globulin 3.7 g/dL (1.7-4.1); Glucose 116 mg/dL (80-110); HEMOLYSIS 20 (0-50); Lipase 60 U/L (23-300); Potassium 3.9 mmol/L (3.4-5.1); Sodium 140 mmol/L (137-145); Total Protein 8.5 g/dL (6.3-8.2)
[2023-04-22 21:50] VITALS: BP 186/80; PULSE 94; RESP 18; TEMP 37.2; O2SAT 98
[2023-04-22] MEDS: ONDANSETRON 4 MG ODT PREPACK 1 BOTTLE MISC (22:15)
[2023-04-22] MEDS: HYDROCODONE/ACET 5/325 PREPACK 1 BOTTLE MISC (22:15)
== END 2023-04-22 22:15 | disposition home or self-care (01) ==
PROVIDERS: Emergency Medicine; Emergency Provider Emergency Medicine; PCP Family Medicine
DX: N20.1 Calculus of ureter (principal); R00.0 Tachycardia, unspecified
CPT/HCPCS: 36415; 74176; 80053; 81003; 81015; 83690; 85025; 93005; 93010; 99283; 99284